=== PATIENT | male | born 1940 | race Caucasian/White ===

== ENCOUNTER → 2023-11-29 06:51 | Outpatient (REF) | payer OTHER, SELFPAY | LOC: MRI 3T 06:51 | PROVIDERS: ATTENDING PHYSICIAN Physical Medicine & Rehabilitation; FAMILY PHYSICIAN Internal Medicine | DX: M54.16 Radiculopathy, lumbar region (principal) | CPT/HCPCS: 72148 ==

== ENCOUNTER → 2023-12-08 07:56 | Outpatient (REF) | payer OTHER, SELFPAY ==
[2023-12-08 09:01] LABS: Hemoglobin 15.5 g/dL (13.0-18.0); Mean Corp Hgb Conc. 31.6 g/dL (33.0-37.0); Mean Corpuscular Hgb 27.9 pg (27.0-31.0); Mean Corpuscular Volume 88.1 fL (80.0-94.0); Mean Platelet Volume 9.9 fL (7.4-10.4); Platelet Count 252 10^3/uL (130-400); Red Blood Cell Count 5.56 10^6/uL (4.70-6.10); Red Cell Dist. Width 16.8 % (11.5-14.5); White Blood Cell Count 5.6 10^3/uL (4.8-10.8)
[2023-12-08 09:58] LABS: Glycohemoglobin (HgbA1c) 8.2 % (4.0-5.6)
[2023-12-08 10:08] LABS: ALT (SGPT) 12 U/L (0-50); AST (SGOT) 27 U/L (17-59); Albumin 3.4 g/dl (3.5-5.0); Alkaline Phosphatase 89 U/L (38-126); Blood Urea Nitrogen 27 mg/dl (9-20); Calcium 8.8 mg/dl (8.4-10.2); Carbon Dioxide 28 mmol/L (22-30); Chloride 100 mmol/L (98-107); Glucose 189 mg/dl (70-99); Potassium 4.3 mmol/L (3.5-5.1); Sodium 135 mmol/L (135-145); Total Bilirubin 0.6 mg/dl (0.2-1.3); Total Protein 9.1 g/dl (6.3-8.2); eGFR > 60.00
== END ==
LOC: REG 07:56
PROVIDERS: ATTENDING PHYSICIAN Internal Medicine Endocrinology, Diabetes & Metabolism; FAMILY PHYSICIAN Internal Medicine
DX: E11.65 Type 2 diabetes mellitus with hyperglycemia (principal)
CPT/HCPCS: 36415; 80053; 83036; 85027

== ENCOUNTER → 2023-12-28 08:59 | Outpatient (REF) | payer OTHER, SELFPAY ==
[2023-12-28 09:37] VITALS: BP 160/73; BP_SYST 65
[2023-12-28 09:49] LABS: Hematocrit 50.8 % (39.0-52.0); Hemoglobin 16.2 g/dL (13.0-18.0); Mean Corp Hgb Conc. 31.9 g/dL (33.0-37.0); Mean Corpuscular Hgb 28.5 pg (27.0-31.0); Mean Corpuscular Volume 89.4 fL (80.0-94.0); Mean Platelet Volume 10.2 fL (7.4-10.4); Platelet Count 191 10^3/uL (130-400); Red Blood Cell Count 5.68 10^6/uL (4.70-6.10); Red Cell Dist. Width 16.7 % (11.5-14.5); White Blood Cell Count 6.9 10^3/uL (4.8-10.8)
[2023-12-28 10:00] LABS: INR 1.08
[2023-12-28 10:31] LABS: Glucose - Point of Care 105 mg/dl (70-99)
[2023-12-28 11:35] VITALS: BP 136/73; BP_SYST 60
[2023-12-28 11:40] VITALS: BP 136/70; BP_SYST 59
[2023-12-28 11:41] LABS: Glucose - Point of Care 84 mg/dl (70-99)
[2023-12-28 11:45] VITALS: BP 138/60; BP_SYST 60
== END ==
LOC: RADI 08:59
PROVIDERS: ATTENDING PHYSICIAN Internal Medicine Hematology & Oncology; FAMILY PHYSICIAN Internal Medicine
DX: C90.30 Solitary plasmacytoma not having achieved remission (principal); C67.9 Malignant neoplasm of bladder, unspecified; D68.8 Other specified coagulation defects
CPT/HCPCS: 88305; 20225; 36415; 77012; 82962; 85027; 85610; 88333; 88341; 88342; 88365; 99152

== ENCOUNTER → 2024-01-16 07:00 | Outpatient (REF) | payer OTHER, SELFPAY ==
[2024-01-16 07:35] LABS: % Basophils 0.5 % (0-2); % Eosinophils 0.3 % (0-6); % Lymphocytes 4.8 % (20.5-51.1); % Monocytes 10.6 % (1.7-9.3); % Neutrophils 79.8 % (42.2-75.2); Absolute Immature Granulocytes 0.4 10^3/uL (0-0.05); Absolute Lymphocytes 0.4 10^3/uL (1.2-3.4); Absolute Monocytes 0.9 10^3/uL (0.1-0.6); Hematocrit 50.2 % (39.0-52.0); Hemoglobin 16.8 g/dL (13.0-18.0); Mean Corp Hgb Conc. 33.5 g/dL (33.0-37.0); Mean Corpuscular Hgb 29.3 pg (27.0-31.0); Mean Corpuscular Volume 87.6 fL (80.0-94.0); Mean Platelet Volume 9.5 fL (7.4-10.4); Nucleated Red Blood Cells % 0 % (-); Platelet Count 207 10^3/uL (130-400); Red Blood Cell Count 5.73 10^6/uL (4.70-6.10); Red Cell Dist. Width 15.9 % (11.5-14.5); White Blood Cell Count 8.8 10^3/uL (4.8-10.8)
[2024-01-16 08:35] LABS: ALT (SGPT) 19 U/L (0-50); AST (SGOT) 22 U/L (17-59); Albumin 3.2 g/dl (3.5-5.0); Alkaline Phosphatase 67 U/L (38-126); Blood Urea Nitrogen 42 mg/dl (9-20); Calcium 8.9 mg/dl (8.4-10.2); Carbon Dioxide 21 mmol/L (22-30); Chloride 104 mmol/L (98-107); Glucose 145 mg/dl (70-99); Potassium 3.9 mmol/L (3.5-5.1); Sodium 135 mmol/L (135-145); Total Bilirubin 0.7 mg/dl (0.2-1.3); Total Protein 7.1 g/dl (6.3-8.2); eGFR > 60.00
== END ==
LOC: REG 07:00
PROVIDERS: ATTENDING PHYSICIAN Internal Medicine Hematology & Oncology; FAMILY PHYSICIAN Internal Medicine
DX: C67.9 Malignant neoplasm of bladder, unspecified (principal); C90.00 Multiple myeloma not having achieved remission
CPT/HCPCS: 36415; 80053; 82232; 82784; 83521; 84155; 84165; 85025; 86334

== ENCOUNTER → 2024-01-30 08:46 | Outpatient (REF) | payer OTHER, SELFPAY | LOC: RAD 08:46 | PROVIDERS: ATTENDING PHYSICIAN Nurse Practitioner Family; FAMILY PHYSICIAN Internal Medicine | DX: C67.9 Malignant neoplasm of bladder, unspecified (principal); C90.00 Multiple myeloma not having achieved remission; K59.00 Constipation, unspecified; M25.552 Pain in left hip | CPT/HCPCS: 73502; 73552 ==

== ENCOUNTER 2024-02-11 06:21 | Inpatient (IN) | payer OTHER, SELFPAY ==
[2024-02-11] VITALS (10 sets, daily range): BP systolic 109–147; BP diastolic 60–82; BMI 28.0; BMI 24.7
--- NOTE | 2024-02-11 03:04 | ED.GENMED ---
History of Present Illness
<Boris Hall, DO - Last Filed: 02/11/24 04:39>
General
Chief Complaint: Back Pain
Source: patient, records, family and ambulance crew
Exam Limitations: none
Time Seen by Provider: 02/11/24 03:02
Nursing documentation reviewed up to this point in time: agreed with
Travel History
Have you had any contact with someone who has COVID-19?: No
Do you have any symptoms of coronavirus? Fever > 100 degrees, chills, cough, shortness of breath, sore throat, loss of taste or smell, muscle aches, or headache?: No
History of Present Illness
History of Present Illness:
83-year-old male presents emergency department complaining low back pain and hip pain. History of plasma cell cancer.
Past History
<Boris Hall, DO - Last Filed: 02/11/24 04:39>
Past History
ED Past Medical History: Asthma (Mild allergic), Cancer (plasma cell cancer), CHF, HTN and Other (idiopathic R diaphram paralized, Cataracts)
ED Past Surgical History: Orthopedic (r knee surg)
Social History
Tobacco: Former smoker
Alcohol: Occasional
Personal:
Living: with family
Employment: Retired
Review of Systems
<Boris Hall, DO - Last Filed: 02/11/24 04:39>
Review of Systems
Allergies reviewed?: Yes
All Other Systems: Not applicable
Constitutional: Reports no symptoms
EENT: Reports no symptoms
Respiratory: Reports trouble breathing
Cardiac: Reports no symptoms
ABD/GI: Reports no symptoms
: Reports no symptoms
Musculoskeletal: Reports back pain
Skin: Reports no symptoms
Neurological: Reports no symptoms
Endocrine: Reports no symptoms
Hematologic/Lymphatic: Reports no symptoms
Phy Exam
<Boris Hall, DO - Last Filed: 02/11/24 04:39>
Physical Exam
Physical Exam:
Physical Exam
General: Moderate respiratory distress, afebrile
Neck: supple. no meningeal signs. normal posterior pharynx
Heart: s1/s2 regular rate and rhythm, no murmur. equal radial
pulses.
HEENT: Pupils equal round reactive to light, EOMI
Lungs: Moderate respiratory distress. clear bilaterally
Abdomen: normal bowel sounds. not tender. no CVAT
Neuro: alert and oriented. no focal neurological deficits cranial nerves II through XII intact
Skin: no rash
Psychiatric: well kept. interactive and cooperative
Extremities: no edema. no calf tenderness. negative homans. good distal pulses
Scores
<Boris Hall DO - Last Filed: 02/11/24 04:39>
Heart Failure Risk
Heart Failure Risk Score: Yes
History of Stroke or TIA: No
History of intubation for respiratory distress: No
Heart rate on ED arrival >/= 110: No
SaO2 <90% on arrival on room air: Yes
HR >/=110 during 3min walk test (or too ill to perform test): Yes
ECG has acute ischemic changes: No
Urea >/=12mmol/L (BUN 33.6mg/dL): Yes
Serum CO2>/=35mmol/L: Yes
Troponin I or T elevated to GA Level (0.4mg/dL): No
NT-proBNP >/=5,000ng/L (5,000pg/ml): No
HF Risk Score: 6
Admission Status: VERY HIGH RISK 55.3% Consider admission to hospital
<AMELIA Vaz - Last Filed: 02/11/24 04:31>
Heart Failure Risk
HF Risk Score: 6
Admission Status: VERY HIGH RISK 55.3% Consider admission to hospital
Course
<Boris Hall, DO - Last Filed: 02/11/24 04:39>
Orders/Labs/Results
Orders:
Orders
02/11/24 03:00
Electrocardiogram (*1) Urgent
Reason for Study: Shortness of Breath
02/11/24 03:01
EKG- Treatment ONCE
02/11/24 03:06
Cardiac Monitoring- Treatment ONCE
IV Insert/Care/Rem.- Treatment PRN
02/11/24 03:07
CR Chest Portable - 1 View Urgent
Comment:
Reason For Exam: short of breath
Reason Study Needs to be Portable: Unable to Transport
02/11/24 03:16
Complete Blood Count/With Diff Urgent
Comprehensive Metabolic Panel Urgent
NT-proBNP Urgent
Troponin I Urgent
02/11/24 04:16
Furosemide [Lasix] 60 mg IV NOW STA
02/11/24 04:34
Morphine Sulfate 4 mg .ROUTE .STK-MED ONE
02/11/24 04:35
Morphine Sulfate 4 mg IV NOW STA
Abnormal Lab Results
02/11/24
03:16
WBC 12.4 H 10^3/uL
(4.8-10.8)
RDW 16.3 H %
(11.5-14.5)
Abs Immat Gran (auto) 0.5 H 10^3/uL
(0-0.05)
Absolute Neuts (auto) 10.8 H 10^3/uL
(1.4-6.5)
Absolute Lymphs (auto) 0.2 L 10^3/uL
(1.2-3.4)
Absolute Monos (auto) 0.7 H 10^3/uL
(0.1-0.6)
Immature Gran % 4.0 H %
(0-0.5)
Neutrophils % 87.5 H %
(42.2-75.2)
Lymphocytes % 1.9 L %
(20.5-51.1)
Sodium 130 L mmol/L
(135-145)
Chloride 90 L mmol/L
(98-107)
Carbon Dioxide 36 H mmol/L
(22-30)
BUN 52 H mg/dl
(9-20)
Glucose 152 H mg/dl
(70-99)
Alkaline Phosphatase 193 H U/L
(38-126)
Troponin I 0.070 H* ng/ml
Total Protein 5.9 L g/dl
(6.3-8.2)
Albumin 3.0 L g/dl
(3.5-5.0)
02/11/24 03:16
02/11/24 03:16
Vital Signs
Initial and Last Documented VS:
Initial Vital Signs
Temp Pulse Resp BP Pulse Ox
97.5 F 71 16 143/65 95
02/11/24 02:52 02/11/24 02:52 02/11/24 02:52 02/11/24 02:52 02/11/24 02:52
Last Documented Vital Signs
Temp Pulse Resp BP Pulse Ox
97.5 F 74 14 109/70 95
02/11/24 02:52 02/11/24 04:00 02/11/24 04:00 02/11/24 04:00 02/11/24 04:00
<AMELIA Vaz - Last Filed: 02/11/24 04:31>
Orders/Labs/Results
Orders:
Orders
02/11/24 03:00
Electrocardiogram (*1) Urgent
Reason for Study: Shortness of Breath
02/11/24 03:01
EKG- Treatment ONCE
02/11/24 03:06
Cardiac Monitoring- Treatment ONCE
IV Insert/Care/Rem.- Treatment PRN
02/11/24 03:07
CR Chest Portable - 1 View Urgent
Comment:
Reason For Exam: short of breath
Reason Study Needs to be Portable: Unable to Transport
02/11/24 03:16
Complete Blood Count/With Diff Urgent
Comprehensive Metabolic Panel Urgent
NT-proBNP Urgent
Troponin I Urgent
02/11/24 04:16
Furosemide [Lasix] 60 mg IV NOW STA
02/11/24 04:34
Morphine Sulfate 4 mg .ROUTE .STK-MED ONE
02/11/24 04:35
Morphine Sulfate 4 mg IV NOW STA
Abnormal Lab Results
02/11/24
03:16
WBC 12.4 H 10^3/uL
(4.8-10.8)
RDW 16.3 H %
(11.5-14.5)
Abs Immat Gran (auto) 0.5 H 10^3/uL
(0-0.05)
Absolute Neuts (auto) 10.8 H 10^3/uL
(1.4-6.5)
Absolute Lymphs (auto) 0.2 L 10^3/uL
(1.2-3.4)
Absolute Monos (auto) 0.7 H 10^3/uL
(0.1-0.6)
Immature Gran % 4.0 H %
(0-0.5)
Neutrophils % 87.5 H %
(42.2-75.2)
Lymphocytes % 1.9 L %
(20.5-51.1)
Sodium 130 L mmol/L
(135-145)
Chloride 90 L mmol/L
(98-107)
Carbon Dioxide 36 H mmol/L
(22-30)
BUN 52 H mg/dl
(9-20)
Glucose 152 H mg/dl
(70-99)
Alkaline Phosphatase 193 H U/L
(38-126)
Troponin I 0.070 H* ng/ml
Total Protein 5.9 L g/dl
(6.3-8.2)
Albumin 3.0 L g/dl
(3.5-5.0)
02/11/24 03:16
02/11/24 03:16
Vital Signs
Initial and Last Documented VS:
Initial Vital Signs
Temp Pulse Resp BP Pulse Ox
97.5 F 71 16 143/65 95
02/11/24 02:52 02/11/24 02:52 02/11/24 02:52 02/11/24 02:52 02/11/24 02:52
Last Documented Vital Signs
Temp Pulse Resp BP Pulse Ox
97.5 F 74 14 109/70 95
02/11/24 02:52 02/11/24 04:00 02/11/24 04:00 02/11/24 04:00 02/11/24 04:00
Procedures
<AMELIA Vaz - Last Filed: 02/11/24 04:31>
Laceration Closure
Left Eye brow:
Status of Wound: clean
Size of Wound in cm: 2
Description of Wound Edges: sharp
Preparation: cleaned with saline
Anesthesia: 1% Lidocaine
Revision/Debridement: routine- no revision
Wound exploration: explored to base- no FB
Type of Closure: single layer closure
Skin Closure Material: 5-0 prolene
Number of sutures: 3
<Boris Hall DO - Last Filed: 02/11/24 04:39>
MDM/Problems Addressed
Differential Diagnosis Includes:
Pneumonia, CHF, low back pain
MDM/Problems Addressed:
83-year-old male with chf exacerbation, low back pain due to multiple myeloma. Hypoxia. lasix ordered, admit to hospitalist.
Chronic conditions affecting care: Cardiomyopathy and Cancer
Acute Exacerbation and/or Progression of Chronic Illness: Cardiomyopathy and Cancer
<Boris Hall, DO - Last Filed: 02/11/24 04:39>
*Radiology
Radiology exam reviewed: preliminary read by ED provider (Chest x-ray no acute findings)
*Pulse Oximetry
Patient hypoxic: yes
*EKG
Interpreted by ED Provider?: Yes
EKG Intrepretation Date: 02/11/24
EKG Intrepretation Time: 03:11
Interpretation: normal
Comparison EKG: no changes
Heart Rate: 67
Rate: normal
Rhythm: sinus
[place]: normal axis
Interval: normal interval
QRS Pattern: normal QRS
Ischemia: no ischemia
*[employer] Interpretation
Rate: normal
Heart Rate: 70
Rhythm: sinus
*Critical Care Note
Total Time (30-74mins, 75-104mins- exclusive of procedures): Not Applicable
Data Reviewed
Review of Other/Old Records Reveals: Testing (lumbar bone biopsy shows plasma cell cancer)
Source: records
Further Testing Considered But Not Given:
ct chest not indicated
ED Attending Note
<Boris Hall, DO - Last Filed: 02/11/24 04:39>
-
Portions of this chart may have been created with voice recognition software.� Occasional wrong word or��sound alike� substitutions may have occurred due to the inherent limitations of voice recognition software.
Discharge Plan
Departure
Patient Disposition: Admit
Date of Disposition: 02/11/24
Time of Disposition: 04:37
Admit to: Telemetry
Presentation/result/management discussed w/ accepting MD/DO: Hospitalist
Patient with high blood pressure during this ER visit?: Yes
Condition: Fair
Discharge Problem:
Acute exacerbation of CHF (congestive heart failure), Multiple myeloma
Prescriptions:
No Action
amlodipine 2.5 MG tablet
5 mg PO BID
omeprazole 40 MG capsule,delayed release(DR/EC)
40 mg PO DAILY
Jardiance 10 mg Tablet
10 mg PO DAILY
insulin glargine [Lantus Solostar U-100 Insulin] 100 unit/mL (3 mL) Insulin Pen
24 unit SC DAILY
furosemide 40 mg Tablet
60 mg PO DAILY
dexamethasone 2 mg Tablet
2 mg PO BID
zolpidem 5 mg Tablet
5 mg PO HS PRN (Reason: insomnia)
morphine 15 mg Tablet
7.5 mg PO Q6H PRN (Reason: pain)
Referrals:
Hilda Fry MD [Family Provider] -
Interventions
Interventions:
*Risk Screen - Suicide Last Done: 02/11/24 02:52
*General Assessment Last Done: 02/11/24 02:52
*Neglect/Abuse Screening Last Done: 02/11/24 02:52
*ED COVID-19 Vaccine History Last Done: 02/11/24 02:52
ED-Musculoskeletal Assessment Last Done: 02/11/24 03:00
Discharge Date and Time
Print Language: AUSTRAL[place]
[2024-02-11 03:24] LABS: % Basophils 0.6 % (0-2); % Lymphocytes 1.9 % (20.5-51.1); % Neutrophils 87.5 % (42.2-75.2); Absolute Basophils 0.1 10^3/uL (0-0.2); Absolute Immature Granulocytes 0.5 10^3/uL (0-0.05); Absolute Lymphocytes 0.2 10^3/uL (1.2-3.4); Absolute Monocytes 0.7 10^3/uL (0.1-0.6); Absolute Neutrophils 10.8 10^3/uL (1.4-6.5); Hematocrit 49.9 % (39.0-52.0); Hemoglobin 16.6 g/dL (13.0-18.0); Mean Corp Hgb Conc. 33.3 g/dL (33.0-37.0); Mean Corpuscular Hgb 29.6 pg (27.0-31.0); Mean Corpuscular Volume 88.9 fL (80.0-94.0); Mean Platelet Volume 10.1 fL (7.4-10.4); Nucleated Red Blood Cells % 0 % (-); Platelet Count 216 10^3/uL (130-400); Red Blood Cell Count 5.61 10^6/uL (4.70-6.10); Red Cell Dist. Width 16.3 % (11.5-14.5); White Blood Cell Count 12.4 10^3/uL (4.8-10.8)
[2024-02-11 03:56] LABS: ALT (SGPT) 31 U/L (0-50); AST (SGOT) 40 U/L (17-59); Alkaline Phosphatase 193 U/L (38-126); Blood Urea Nitrogen 52 mg/dl (9-20); Calcium 8.4 mg/dl (8.4-10.2); Carbon Dioxide 36 mmol/L (22-30); Chloride 90 mmol/L (98-107); Estimated Creatinine Clearance 47 ml/min; Glucose 152 mg/dl (70-99); NT-proBNP 2250 pg/ml; Sodium 130 mmol/L (135-145); Total Bilirubin 0.7 mg/dl (0.2-1.3); Total Protein 5.9 g/dl (6.3-8.2); eGFR 59.63
[2024-02-11] MEDS: LASIX 60 MG IV (04:29)
[2024-02-11] MEDS: MORPHINE SULFATE 4 MG IV (04:35)
--- NOTE | 2024-02-11 06:13 | HPS.HSE ---
Family Physician
-
Family Physician: Hilda Fry
Chief Complaint
-
Back Pain, Fatigue, SOB
History of Present Illness
Patient is an 83y M with PMH significant for hypertension, DM-II and CHF who presents to ED complaining of back pain, hip pain, SOB and fatigue. History obtained from patient and his family at the bedside. Patient states that he was diagnosed
with CHF in June 2023. He has been maintained on Lasix since that time. More recently, he developed significant back pain which ultimately led to a diagnosis of plasma cell myeloma. He has had continued / worsening pain since this diagnosis.
He is currently on dexamethasone BID and was recetly started on oral morphine (Monday) in an attempt to control his pain. At home, he has been essentially confined to his recliner due to pain and dyspnea. He has had significant increase in LE
swelling.
His Lasix dose was recently adjusted - in hopes it would improve his sleep. He was changed from 40mg in the AM and 20mg in the PM to 60 mg in the AM only.
Today, he was having significant back and hip pain despite the meds he has at home. He appeared much more short of breath over the past 2 days according to family and today was brought to the ED for further evaluation and treatment.
In the ED, the patient is dyspneic with increased work of breathing when awake, but falls asleep easily.
Medical History
Past Medical History
Past Medical History: Reports Other
Additional Past Medical History:
Chronic HFpEF
Hypertension
DM-II
Transitional Cell Carcinoma
Plasma Cell Myeloma
Colon Polyps
Atrial Fibrillation s/p Ablation
Paralyzed R Hemidiaphragm
Past Surgical History: Reports Other
Additional Past Surgical History:
PVI Ablation x 2
LINQ Implant
Cholecystectomy
TURBT
Right Knee Arthroscopy
Social History
Tobacco: Former Smoker
Alcohol: Occasional
Drug: None
Family History
Family History: Not pertinent
Allergies / Home Medications
Allergies reflects when Allergies were last updated in [facility].
Home Medications with original date entered in [facility]
Allergy/Medication List:
Allergies
Allergy/AdvReac Type Severity Reaction Status Date / Time
No Known Drug Allergies Allergy Unknown Verified 12/28/23 10:15
pollens Allergy sneezing, Uncoded 06/25/23 14:21
postnasal
drip
Home Medications
amlodipine 2.5 mg tablet 5 mg PO BID Blood pressure 10/11/17
omeprazole 40 mg capsule,delayed release 40 mg PO DAILY stomach acid 06/18/21
empagliflozin 10 mg tablet (Jardiance) 10 mg PO DAILY 12/27/23
insulin glargine 100 unit/mL (3 mL) subcutaneous pen (Lantus Solostar U-100 Insulin) 24 unit SC DAILY 12/27/23
furosemide 40 mg tablet 60 mg PO DAILY 12/28/23
dexamethasone 2 mg tablet 2 mg PO BID 02/11/24
morphine 15 mg immediate release tablet 7.5 mg PO Q6H PRN pain 02/11/24
zolpidem 5 mg tablet 5 mg PO HS PRN insomnia 02/11/24
Review of Systems
-
History Source: Patient and Family
A 12 point ROS was completed and negative except as noted: Yes
Constitutional: Reports Fatigue; Denies Fever or Chills
EENT: Denies Sore Throat
Respiratory: Reports Trouble Breathing; Denies Cough or Hemoptysis
Cardiac: Denies Chest Pain, Diaphoresis or Palpitations
Abdomen/GI: Reports Constipated; Denies Abdominal Pain, Nausea, Vomiting or Diarrhea
: Denies Dysuria or Frequency
Musculoskeletal: Reports Joint Pain and Edema
Neurological: Reports Weakness; Denies Dizzy or Headache
Psych: Denies Depression or Anxiety
Physical Exam
Vital Signs
Vital Signs
Temp Pulse Resp BP Pulse Ox
97.5 F 73 23 147/73 93
02/11/24 02:52 02/11/24 05:00 02/11/24 05:00 02/11/24 05:00 02/11/24 05:00
Physical Exam
General: Other (83y M in mild - moderate distress due to pain / dyspnea.)
HEENT: Moist mucous membranes and PERRLA
Respiratory: Other (Decreased BS at the R base - otherwise clear.)
Cardiac: S1/S2, Regular Rhythm and Murmur (II/ REJI)
GI: Soft, Non Tender, Non Distended and Normal Bowel Sounds
Musculoskeletal: No Clubbing, No Cyanosis and Other (3-4+ pitting edema to the mid thighs,)
Neuro: Other (Falls asleep easily. Answers questions appropriately when wakened.)
Laboratory Results
-
02/11/24 03:16
02/11/24 03:16
Laboratory Results
Total Bilirubin 0.7 mg/dl (0.2-1.3) 02/11/24 03:16
AST 40 U/L (17-59) 02/11/24 03:16
ALT 31 U/L (0-50) 02/11/24 03:16
Alkaline Phosphatase 193 U/L (38-126) H 02/11/24 03:16
Troponin I 0.070 ng/ml H* 02/11/24 03:16
Impression/Plan
-
A/P: Patient is an 83y M with PMH significant for hypertension, DM-II, CHF and newly diagnosed myeloma who presents to ED complaining of increased SOB and uncontrolled pain.
Acute on Chronic HFpEF
Acute Hypoxemic Respiratory Failure secondary to the above
- Admit for further evaluation and treatment.
- Mostly R sided CHF symptoms / exam findings, but significant hypoxemia at home (70s) and here (87% RA).
- Marked edema on exam - gradually better the last few days with higher Lasix doses at home.
- IV Lasix BID for now.
- Follow I/Os, daily weights, etc.
- Update Echo (last 06/2023).
- Cardiology evaluation for additional recommendations.
- Suspect that degree of hypoxemia also contributed to by new pain medications, chronic hemidiaphragm paralysis, etc.
Plasma Cell Myeloma
Uncontrolled Pain secondary to the above
- Patient with back pain and hip pain secondary to L5 lesion (with other / small lesions also noted at L3, sacrum, iliac).
- Adjust pain regimen for adequate control.
- Continue current dexamethasone dosing.
- Follow for adequate control of pain.
Constipation
- Likely due to newly added narcotics.
- Begin bowel regimen and adjust as needed for good results.
Benign Hypertension
- Hold amlodipine for now given significant LE edema.
- Follow BP during diuresis and adjust regimen as needed for adequate control.
DM-II
- Stable. Continue SGLT-2 inhibitor and basal insulin.
- Follow glucose and cover with SSI as needed.
- Update A1C.
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
History of A-Fib s/p PVI Ablation x 2
- No recurrent A-Fib noted. LINQ in place.
- Not maintained on chronic OAC.
DVT Prophylaxis: Lovenox
Code Status: Full
[2024-02-11 09:03] LABS: Troponin I 0.069 ng/ml
[2024-02-11 09:07] LABS: Glucose - Point of Care 127 mg/dl (70-99)
[2024-02-11] MEDS: NOVOLOG FLEXPEN-LOW RESISTANCE SC (09:09)
[2024-02-11] MEDS: DECADRON 2 MG PO ×2 (09:18→20:59)
[2024-02-11] MEDS: PROTONIX 40 MG PO (09:18)
[2024-02-11] MEDS: TYLENOL 1000 MG PO ×3 (09:18→22:36)
[2024-02-11] MEDS: JARDIANCE 10 MG PO (09:18)
[2024-02-11] MEDS: COLACE 100 MG PO ×2 (09:18→20:59)
[2024-02-11] MEDS: LASIX 40 MG IV (09:18)
[2024-02-11] MEDS: LANTUS 0.200000000000000011 UNITS SC (09:27)
--- NOTE | 2024-02-11 11:27 | PTCARENOTE ---
Patient admitted from ER into room 405-02. Vital signs stable. Accu check 127. Insulin given as ordered and assisted patient with ordering breakfast. Oriented to room, use of call rice and use of TV and bed controls. Reviewed plan of care with
patient. Patient verbalizes understanding of all teaching and denies questions at this time. Patient with large stage 2 pressure ulcer bilateral buttocks. Will place him on air mattress. Patient denies pain at this time. Resting comfortably in bed.
--- NOTE | 2024-02-11 11:34 | W.PN.HOSP.TC ---
Addendum entered and electronically signed by Mars Mckeon MD 02/11/24 13:23:
Hyponatremia-likely secondary to fluid overload/myeloma-will check osmolality studies
Original Note:
Today's Communication/Plan
-
Bowel regimen
Pain control
PT OT
Venous doppler LE
Lasix
ECHO
Assessment / Plan
Assessment / Plan
83-year-old male With back pain fatigue and shortness of breath. LE edema worse lately.
CVS: S1-S2 normal
Chest: CTA B/L, decreased at bases
Abdomen: Soft, NT / Bowel sounds present
Extremities: B/L LE edema,
GEOTECHNICIAN: Good strength peripheral strength B/L UE and LE
Sacrum Stage 2 PI
#Acute on Chronic HFpEF
Acute Hypoxemic Respiratory Failure secondary to the above
- Mostly R sided CHF symptoms / exam findings, but significant hypoxemia at home (70s) and here (87% RA).
- Marked edema on exam - gradually better the last few days with higher Lasix doses at home.
- IV Lasix BID for now.
- Follow I/Os, daily weights
- Update Echo (last 06/2023).
- Cardiology evaluation for additional recommendations.
- LE doppler
- Suspect that degree of hypoxemia also contributed to by new pain medications, chronic hemidiaphragm paralysis, etc.
#Plasma Cell Myeloma
Uncontrolled Pain secondary to the above
- Patient with back pain and hip pain secondary to L5 lesion (with other / small lesions also noted at L3, sacrum, iliac).
- Says he had radiation, and steroids. No chemo
- Adjust pain regimen for adequate control.
- Opiate dependent for pain control
- Continue current dexamethasone dosing.
- Follow for adequate control of pain.
- Follows with Dr. Farah- will consult heme routine Monday
#Stage 2 Sacral PI
#Constipation
- Likely due to newly added narcotics.
- Begin bowel regimen and adjust as needed for good results.
#Benign Hypertension
- Hold amlodipine for now given significant LE edema.
- Follow BP during diuresis and adjust regimen as needed for adequate control.
#DM-II
- Master on Jardiance, Lantus 24 units as outpatient
- Follow glucose and cover with SSI as needed.
- Update A1C.
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
#History of Paroxysmal A-Fib s/p PVI Ablation x 2
- No recurrent A-Fib noted. LINQ in place.
- Not maintained on chronic OAC.
#Possible portal vein thrombosis-Per MRI in the past-not on anticoagulation
#History of peptic ulcer disease/hiatal hernia-PPI
#Insomnia-continue Ambien
#Atherosclerosis ,Mild to moderate calcified plaque within the left SFA
Per daughter pt doesn't want to take chol meds as he is afraid of side effects
#Diverticulosis
#Gout
#Ex-smoker
#DVT Prophylaxis: Lovenox
#Code Status: Full
D/W RN at bed side
Spoke to daughter and updated.
She says he doesn't like to take a lot of meds
Time spent 52 min
Anticipated Discharge: 24 - 48 hours
Subjective/Interval History
-
Date of Service: February 11, 2024
Objective Data
-
Labs:
Laboratory Results
02/11/24
03:16
WBC 12.4 H
Hgb 16.6
Hct 49.9
Plt Count 216
Sodium 130 L
Potassium 5.0
Chloride 90 L
Carbon Dioxide 36 H
BUN 52 H
Creatinine 1.2
Glucose 152 H
Calcium 8.4
Total Bilirubin 0.7
AST 40
ALT 31
Alkaline Phosphatase 193 H
Vital Signs:
Vital Signs
Temp Pulse Resp BP Pulse Ox
97.6 F 83 18 147/82 96
02/11/24 07:55 02/11/24 09:18 02/11/24 07:55 02/11/24 09:18 02/11/24 07:55
I&O
02/10/24 02/11/24 02/12/24
06:59 06:59 06:59
Output Total 50 / 50
Balance -50 / -50
[2024-02-11] MEDS: MIRALAX 17 GRAMS PO (12:37)
--- NOTE | 2024-02-11 12:53 | PTCARENOTE ---
Patient placed on air mattress. Buttock/saccral area cleansed with NSS and Calazime cream applied. Patient assisted with frequent turning and off loading weight. Wound care consult placed.
[2024-02-11] MEDS: MILK OF MAGNESIA 30 ML PO (13:33)
[2024-02-11] MEDS: LIDOCAINE 4% PATCH 1 PATCH TOPICAL (13:33)
[2024-02-11 13:43] LABS: Glucose - Point of Care 487 mg/dl (70-99)
--- NOTE | 2024-02-11 13:43 | CON.CAR ---
Consultation
Consultation Request
Date/Time Consultation Requested: 02/11/2024 at 10 AM
Date/Time Consultation Performed: 02/11/2024 at 2:30 PM
Requesting Provider: Dr. Fournier
Performing Provider: Dr. Megan Joiner MD
Reason for Consultation: Shortness of breath
Medical History
-
Chief Complaint: Shortness of breath
History of Present Illness:
He is my outpatient he is here for heart failure symptoms with complaints of shortness of breath, fatigue, back and hip pain. Labs performed in the ER included a troponin peak of 0.07. proBNP of 2250 with prior 442 (06/25/2023). EKG without acute
abnormality.
In addition he has history of hypertension and diabetes. He has prior history of GI bleed. He has known elevated hemidiaphragm. Of note on presentation pulse ox's were in the 87% range
He has been diuresing during hospital stay and is starting to feel better but still has lower extremity edema to his thighs. He underwent peripheral vascular venous ultrasound today with evidence of bilateral DVT with on the right nonocclusive
thrombus in the common femoral vein, occlusive thrombus mid femoral vein nonocclusive thrombus in the popliteal vein. Left lower extremity common femoral vein and popliteal vein are patent nonocclusive thrombus in the proximal femoral vein.
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 Given pain he has been treated with radiation. He is currently on dexamethasone BID and was recently started on oral morphine (Monday) in an
attempt to control his pain. His pain is better controlled but still noted. He tells me currently he has not needed pain medicine.
Past Medical History
Past Medical History: Arrhythmias (Atrial fibrillation status post pulmonary vein isolation x 2), Cancer (Malignant plasmacytoma, transitional cell carcinoma of the bladder), CHF, GERD (Hiatal hernia), HTN, NIDDM and Other (Elevated hemidiaphragm,
gout, history of GI bleed, rotator cuff rupture)
Past Surgical History: Cardiac (Linq implant), Orthopedic (Knee arthroscopy), Tonsilectomy, Urological (Cystoscopy with TURBT) and Other (Ophthalmologic surgery)
Social History
Tobacco: Non-Smoker
Personal:
Living: With Family
Employment: Retired
Family History
Family History: Reviewed & Not Pertinent
Allergies / Home Medications
Allergy/AdvReac Type Severity Reaction Status Date / Time
No Known Drug Allergies Allergy Unknown Verified 12/28/23 10:15
pollens Allergy sneezing, Uncoded 06/25/23 14:21
postnasal
drip
�Medication �Instructions �Recorded �Confirmed �Type
amlodipine 2.5 mg tablet 5 mg PO BID Blood pressure 10/11/17 02/11/24 History
omeprazole 40 mg capsule,delayed 40 mg PO DAILY stomach acid 06/18/21 02/11/24 History
release
empagliflozin 10 mg tablet 10 mg PO DAILY Diabetes/Heart 12/27/23 02/11/24 History
(Jardiance) failure
insulin glargine 100 unit/mL (3 24 unit SC DAILY Diabetes 12/27/23 12/27/23 History
mL) subcutaneous pen (Lantus
Solostar U-100 Insulin)
furosemide 40 mg tablet 60 mg PO DAILY Fluid 12/28/23 02/11/24 History
Retention/Swelling
dexamethasone 2 mg tablet 2 mg PO BID Anti-Inflammatory 02/11/24 02/11/24 History
morphine 15 mg immediate release 7.5 mg PO Q6H PRN pain 02/11/24 02/11/24 History
tablet
zolpidem 5 mg tablet 5 mg PO HS PRN insomnia 02/11/24 02/11/24 History
Review of Systems
-
History Source: Patient
All other systems: Negative unless noted
Respiratory: Trouble Breathing
Cardiac: Other (Edema)
Musculoskeletal: Other (Back pain hip pain)
Physical Exam
Vital Signs
Temp Pulse Resp BP Pulse Ox
97.8 F 67 18 125/60 94
02/11/24 11:45 02/11/24 11:45 02/11/24 11:45 02/11/24 11:45 02/11/24 11:45
Lab Results
02/11/24 03:16
02/11/24 03:16
Troponin I 0.069 ng/ml H* 02/11/24 08:23
.Daz-T-Bguoayofnku Pept 2250 pg/ml 02/11/24 03:16
General: Well developed, well nourished in NAD.
Heart: Non displaced PMI, RRR, no murmurs, No S3, S4, no rubs.
Lungs: decreased breath sounds at the base
Extremities: +2 edema to thighs
Neuro: Grossly nonfocal, awake, alert and oriented x3
Impression / Plan
-
Progress Developer: Dr. Megan Joiner
Impression:
Acute on chronic heart failure with preserved ejection fraction
Hypoxemia on presentation
Elevated troponin (peak 0.07)�non acute coronary syndrome troponin elevation
Now with bilateral DVT
History of atrial fibrillation status post pulmonary vein isolation 11/26/2013 and 06/05/2014, Not on anticoagulation secondary to GI bleeding monitor through device
Linq monitor in place to monitor for atrial fibrillation, 12/15/2013 and 09/06/2021
Hypertension
Diabetes mellitus
Plasmacytoma
History of bladder cancer�low-grade papillary urothelial carcinoma
History of GI bleed
Elevated hemidiaphragm
Hip and back pain
Aorta atherosclerosis, declined lipid-lowering
-Echocardiogram 07/25/2023 with mild LVH (1 to 1.1 cm). EF 55 to 60%. Normal RV. Mild MR. Trace AI. Mild TR with PA pressure 43 mmHg.
-Lexiscan nuclear stress test 07/07/2023 small, mild, fixed basal to mid inferior perfusion defect which likely represents attenuation. No ischemia or scar. Ejection fraction 65%.
Plan:
Patient with a history of acute on chronic heart failure with preserved ejection fraction. Continues on steroids for back pain. Volume overload is multifactorial.
-Agree with IV Lasix for diuresis
-Follow input/output and daily weights
-Follow labs
-Heart failure team consult/nutrition consult
-Currently I have held Lasix until CT scan with contrast is completed. He still does appear volume overloaded.
Hypoxemia on presentation
-Possibly related to decompensated heart failure with preserved ejection fraction
-However given bilateral DVT rule out PE. Primary service ordering CT scan.
Elevated troponin
-Recent stress test negative for ischemia
-Likely non-ACS troponin elevation
-Continue conservative management
-There is concern given bilateral DVT and PE will be ruled out which may be the etiology of elevated troponin.
Bilateral DVT
-Tricky situation given patient is not currently on anticoagulation because of history of GI bleeding. Discussed with patient and his daughter at the bedside.
-Have discussed with primary service and agree to start IV heparin and follow. If bleeding related issues with then consider IVC filter
-Hematology/oncology will also be seeing patient
Hypertension
-Blood pressure stable continue current treatment
Diabetes
-Managed by primary service
History of atrial fibrillation status post pulmonary vein isolation x 2 in 2014
-Not on anticoagulation because of previous GI bleed
-Atrial fibrillation is monitored through Linq device
Plasmacytoma with back and hip pain
Discussed with nursing. Discussed with primary service. Discussed with patient and his daughter at the bedside and all questions answered.
Data Reviewed
-
EKG: Tracing Personally Visualized and interpreted
Radiology: Report Reviewed by me
Medical Tests (Nuc Med, Echo etc): Report Reviewed by me
Labs: Labs Reviewed by me
Old Records: Reviewed
[2024-02-11 13:45] LABS: Osmolality Serum 285 mOsm/kg (275-300)
[2024-02-11 13:46] LABS: Glucose - Point of Care 293 mg/dl (70-99)
[2024-02-11] MEDS: NOVOLOG FLEXPEN-LOW RESISTANCE 3 UNITS SC (13:58)
[2024-02-11 14:30] LABS: Osmolality Urine 351 mOsm/kg (300-900)
[2024-02-11 14:41] LABS: Urine Sodium 64 mmol/L (30-90)
--- NOTE | 2024-02-11 16:04 | PTCARENOTE ---
Accu check reading high prior to lunch. Asked PCT to repeat as he had insulin and the result was not correlating with how he was feeling or the fact that insulin was given prior. Repeat result 293. Covered with sliding scale insulin as ordered.
--- NOTE | 2024-02-11 16:12 | PTCARENOTE ---
BL lower extremity US - Evidence of bilateral deep venous thrombosis. On the right, nonocclusive thrombus in the common femoral vein and popliteal vein. Occlusive thrombus in the proximal to mid femoral vein. On the left, nonocclusive thrombus in
the proximal femoral vein. Hospitalist notified who spoke with patient and daughter.
--- NOTE | 2024-02-11 16:15 | CM ---
CM met with pt and dtr bedside
Pt resides with his in a 2SH with 2STE
Pt notes independence with ADLs typically- has a WW and transport chair
Stair glide to 2nd floor and family renting hospital bed ( he feels it is uncomfortable- does not have air mattress)
Pt is not on home O2 at baseline
Pt is current with [facility] and [facility]
Dtr signed paperwork for 20/03 private duty care- awaiting nursing assessment and start date
Pt recently completed radiation sessions 04/04
PCP- Hilda Fry
Rx- [facility] [address] [place]
WOC consulted for sacral injury
PT/OT evals pending
Anticipate plan to return home with services, will watch for home O2 and DME needs
Discharge Disposition- likely home with [facility] and palliative [facility], watch for home 02 and likely will need air mattress
--- NOTE | 2024-02-11 16:25 | W.PN.UPDATE ---
Update Note
Progress Note Update
Patient and daughter updated with results of USS.
Also discussed with Cardiology.
It is best to start patient on Heparin gtt
With SOB will also get a CT PE study , may be this is not CHF and could be PE?
Also add on CT A/P with IV contrast given Edema and DVT and also persisting back pain.
If cardiology agrees will hold lasix tonight and get BMP in am given he is going to get IV contrast.
TIme 20 min
[2024-02-11] MEDS: LASIX IV (16:38)
[2024-02-11 16:49] LABS: Glucose - Point of Care 189 mg/dl (70-99)
[2024-02-11 17:00] LABS: Hematocrit 51.6 % (39.0-52.0); Hemoglobin 17.5 g/dL (13.0-18.0); Mean Corp Hgb Conc. 33.9 g/dL (33.0-37.0); Mean Corpuscular Hgb 29.1 pg (27.0-31.0); Mean Corpuscular Volume 85.9 fL (80.0-94.0); Mean Platelet Volume 9.6 fL (7.4-10.4); Platelet Count 243 10^3/uL (130-400); Red Blood Cell Count 6.01 10^6/uL (4.70-6.10); Red Cell Dist. Width 17.2 % (11.5-14.5); White Blood Cell Count 9.4 10^3/uL (4.8-10.8)
[2024-02-11 17:01] LABS: Troponin I 0.061 ng/ml
[2024-02-11 17:10] LABS: APTT 23.3 Sec (23.4-35.0)
[2024-02-11] MEDS: HEPARIN 25000 UNITS/250 ML IV (17:27)
[2024-02-11] MEDS: HEPARIN 6200 UNITS IV (17:28)
[2024-02-11] MEDS: NOVOLOG FLEXPEN-LOW RESISTANCE 1 UNITS SC (17:32)
--- NOTE | 2024-02-11 20:53 | W.PN.UPDATE ---
Update Note
Progress Note Update
CT of chest + for PE but is without evidence of right heart strain. He is presently on Heparin infusion.
[2024-02-11] MEDS: SENOKOT 17.1999999999999993 MG PO (20:59)
[2024-02-11 21:30] LABS: Glucose - Point of Care 107 mg/dl (70-99)
[2024-02-11 22:29] LABS: Troponin I 0.069 ng/ml
[2024-02-12 03:53] VITALS: BP 136/75
--- NOTE | 2024-02-12 04:47 | PTCARENOTE ---
Addendum entered by Ernesto Jackson RN 02/12/24 07:51:
Pt is on a medsitter for safety reasons.
Original Note:
Pt continued on heparin drip as ordered. Pt took his oxygen off, pt pulled his tele leads & IV came out,as per pt he was trying to take them off & got caught with it. Pt oriented to place,forgetful to time. Pt doesn't like to be woken up to give
care,refuses [id number],aware of skin breakdown,still refuses turns.New IV was placed on pt. IV heparin continued as per protocol. Pt sinus bradycardia on monitor in 40-50's, when awake 55-60 asymptomatic otherwise.Denies chest pain.On oxygen at
4litres. [employer] immigration case manager was made aware of it.No new orders at this time.Plan of care continued.
[2024-02-12 06:59] LABS: Hematocrit 48.4 % (39.0-52.0); Hemoglobin 16.3 g/dL (13.0-18.0); Mean Corp Hgb Conc. 33.7 g/dL (33.0-37.0); Mean Corpuscular Hgb 29.2 pg (27.0-31.0); Mean Corpuscular Volume 86.6 fL (80.0-94.0); Mean Platelet Volume 9.7 fL (7.4-10.4); Platelet Count 223 10^3/uL (130-400); Red Blood Cell Count 5.59 10^6/uL (4.70-6.10); Red Cell Dist. Width 15.9 % (11.5-14.5); White Blood Cell Count 9.9 10^3/uL (4.8-10.8)
[2024-02-12 07:31] LABS: Glucose - Point of Care 88 mg/dl (70-99)
[2024-02-12 07:55] VITALS: BP 147/66
[2024-02-12] MEDS: NOVOLOG FLEXPEN-LOW RESISTANCE SC ×3 (08:09→17:36)
[2024-02-12 08:18] LABS: Blood Urea Nitrogen 43 mg/dl (9-20); Calcium 8.2 mg/dl (8.4-10.2); Carbon Dioxide 32 mmol/L (22-30); Chloride 94 mmol/L (98-107); Estimated Creatinine Clearance 63 ml/min; Glucose 91 mg/dl (70-99); HDL Cholesterol 48 mg/dl; LDL Cholesterol, Calculated 50 mg/dl; Potassium 4.4 mmol/L (3.5-5.1); Sodium 131 mmol/L (135-145); Total Cholesterol 119 mg/dl (50-199); Triglyceride 105 mg/dl (10-149); Very Low Density Lipoprotein 21 mg/dl (0-30); eGFR > 60.00
[2024-02-12 08:21] LABS: APTT 54.5 Sec (23.4-35.0)
--- NOTE | 2024-02-12 08:50 | CON.ONC ---
Impression
Impression
Probable multiple myeloma
Cancer-related pain s/p RT to l/s spine
Steroid myopathy
DVT/PE
Constipation
CHF
Afib with Linq, not on a/c at baseline
Anorectal pain
Progressive weakness with having difficulty managing pt at home
Plan
Plan
MRI lumbosacral spine, eval for path fx at L5, eval for other lytic lesions.
Awaiting manual disimpacting for constipation.
Low threshold for anorectal surgery consult to exclude perirectal abscess as contributing factor to the very severe pain.
Agree with current analgesic regimen
Re-eval PS once pain better controlled, determine whether pt is safe to return home vs. requiring placement ( was having difficuty managing him at home)
Taper dexamethasone to 2 mg daily (has been on 2 BID for 10 days) due to suspected steroid myopathy.
With diagnosis of plasmacytoma confirmed by biopsy, pt also meets diagnostic criteria for active myeloma if there are other osteolytic lesions presents, even though he does not have other CRAB criteria, and in that case bone marrow biopsy would not
be required for definitive diagnosis.
Thank you for consult, will follow along with you.
Patient History
History of Present Illness
83-year-old man with history of bladder cancer, recently presented with back and hip pain. Imaging showed a large lesion at L5. He underwent biopsy of this lesion with pathology showing plasmacytoma versus multiple myeloma with complex
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 At presentation, he had no symptoms other than pain and his hemoglobin, calcium and kidney function were normal. He was treated with radiation to the L5 lesion. Patient declined bone
marrow biopsy. He has been treated with steroids but has developed proximal muscle weakness. This has been attributed in part to the steroids but there is also concern for aggressive process in the lumbosacral spine. Patient has recently been
much worse. He saw palliative care for initial visit on February 06 and was prescribed MS IR 7.5 p.o. every 4-6 hours, he had previously tried Percocet but stated it did not work and made him constipated. He was started on bowel regimen by palliative
care, and we started him on gabapentin 300 mg p.o. 3 times daily for pain. His pain has not been well-controlled. He has been essentially confined to his recliner due to pain and shortness of breath as well as a significant increase in lower
extremity swelling. He came to the ED on February 10 with progressive back pain, hip pain, and shortness of breath. He was hypoxic in the ED. Imaging showed bilateral pulmonary emboli and bilateral lower extremity DVTs.
He has been started on unfrac heparin for PE. He continues on dexamethasone taper current dose 2 mg PO BID, Dilaudid 0.5 mg IV PRN, oxycodone 10 mg PO Q4h PRN. For bowels: Senokot BID, Milarax QD, Colace BID. Did not tolerate gabapentin due to
confusion/sedation. States MSIR 7.5 mg was working for the pain as outpt but the constipation has limited how much he is willing to take. Pt passed watery stool while I was in the room.
c/o severe anal pain which he is attributing to constipation. also c/o severe L hip pain. At the moment the anal pain is the larger problem. Daughter Karine present.
Past-Medical/Surgical History
PMHx:
History of bladder cancer, currently LIBAN
Diabetes
Atrial fibrillation not on anticoagulation, has a Linq monitor
Hyperlipidemia
Macular degeneration
CHF
Hiatal hernia
HTN
Gout
Hx GIB
PSHx:
Knee surgery
Cholecystectomy
Tonsillectomy
TURBT
Ophthalmologic surgery
Social:
Former smoker, quit in 1973
Than 1 alcoholic beverage per week
All:
NKDA
Patient Medication
�Medication �Instructions �Recorded �Confirmed �Last Taken �Type
amlodipine 2.5 mg tablet 5 mg PO BID Blood pressure 10/11/17 02/11/24 12/28/23 History
omeprazole 40 mg capsule,delayed 40 mg PO DAILY stomach acid 06/18/21 02/11/24 12/28/23 History
release
empagliflozin 10 mg tablet 10 mg PO DAILY Diabetes/Heart 12/27/23 02/11/24 12/27/23 History
(Jardiance) failure
insulin glargine 100 unit/mL (3 24 unit SC DAILY Diabetes 12/27/23 02/11/24 12/27/23 History
mL) subcutaneous pen (Lantus
Solostar U-100 Insulin)
furosemide 40 mg tablet 60 mg PO DAILY Fluid 12/28/23 02/11/24 12/27/23 History
Retention/Swelling
dexamethasone 2 mg tablet 2 mg PO BID Anti-Inflammatory 02/11/24 02/11/24 Unknown History
morphine 15 mg immediate release 7.5 mg PO Q6H PRN pain 02/11/24 02/11/24 Unknown History
tablet
zolpidem 5 mg tablet 5 mg PO HS PRN insomnia 02/11/24 02/11/24 Unknown History
Active Medications
Generic Name Dose Route Start Last Admin
Trade Name Freq PRN Reason Stop Dose Admin
Acetaminophen 1,000 mg 02/11/24 08:00 02/11/24 22:36
Acetaminophen 500 Mg Tablet PO 03/10/24 07:59 1,000 mg
TID LAURA Administration
Dexamethasone 2 mg 02/11/24 08:00 02/11/24 20:59
Dexamethasone 2 Mg Tablet PO 03/10/24 07:59 2 mg
BID LAURA Administration
Dextrose 12.5 grams 02/11/24 07:56
Dextrose 50% (0.5 Grams/Ml) 50 Ml Syringe IV 03/10/24 07:55
[id number] PRN
hypoglycemia
Protocol
Docusate Sodium 100 mg 02/11/24 08:00 02/11/24 20:59
Docusate Sodium 100 Mg Capsule PO 03/10/24 07:59 100 mg
BID LAURA Administration
Empagliflozin 10 mg 02/11/24 08:00 02/11/24 09:18
Empagliflozin (Jardiance) 10 Mg Tablet PO 03/10/24 07:59 10 mg
DAILY LAURA Administration
Furosemide 40 mg 02/11/24 08:00 02/11/24 16:38
Furosemide 40 Mg (10 Mg/Ml) 4 Ml Vial IV 03/10/24 07:59 Not Given
BID AT 0800,1600 LAURA
Glucagon 1 mg 02/11/24 07:56
Glucagon 1 Mg Vial IM 03/10/24 07:55
PRN PRN
hypoglycemia
Protocol
Heparin Sodium 6,200 units 02/11/24 17:12
Heparin 80 Units/Kg Iv Rebolus IV 03/10/24 17:11
PRN PRN
PTT < OR = 64 seconds
Heparin Sodium 3,100 units 02/11/24 17:12
Heparin 40 Units/Kg Iv Rebolus IV 03/10/24 17:11
PRN PRN
PTT = 64.1 to 72.9 seconds
Hydromorphone HCl 0.5 mg 02/11/24 06:52
Hydromorphone 0.5 Mg/0.5 Ml Syringe IV 02/25/24 06:51
Q4HPRN PRN
Severe Pain
Insulin Glargine 20 units/ 0.2 mls @ 0 mls/hr 02/11/24 10:00 02/11/24 09:27
Device SC 03/10/24 09:59 0.2 mls
DAILY LAURA Administration
As Directed
Heparin Sodium 25,000 units in 250 mls @ 0 mls/hr 02/11/24 16:30 02/11/24 17:27
Heparin 56821 Units/250 Ml IV 250 mls
PER PROTOCOL LAURA Administration
Protocol
Per Protocol
Insulin Aspart 0 units 02/11/24 07:56 02/12/24 08:09
Insulin Aspart Low Resistance 300 Units/3 Ml Pen.Injctr SC 03/10/24 07:55 Not Given
AC LAURA
Protocol
Lidocaine 1 patch 02/11/24 13:30 02/11/24 13:33
Lidocaine 4% Topical Patch TOPICAL 03/10/24 13:29 1 patch
DAILY LAURA Administration
Oxycodone HCl 10 mg 02/11/24 07:56
Oxycodone 10 Mg Regular Release Tablet PO 02/25/24 07:55
Q4HPRN PRN
Moderate Pain
Pantoprazole Sodium 40 mg 02/11/24 09:00 02/11/24 09:18
Pantoprazole 40 Mg Delayed Release Tablet PO 03/10/24 08:59 40 mg
DAILY LAURA Administration
Patch Removal 0 patch 02/11/24 20:00 02/11/24 20:59
Remove Lidocaine Patch REMOVE 03/10/24 19:59 1 patch
DAILY@2000 LAURA Administration
Polyethylene Glycol 17 grams 02/12/24 08:00
Polyethylene Glycol Powder 17 Grams Packet PO 03/11/24 07:59
DAILY LAURA
Sennosides 17.2 mg 02/11/24 20:00 02/11/24 20:59
Sennosides (Senokot) 8.6 Mg Tablet PO 03/10/24 19:59 17.2 mg
BID LAURA Administration
Sodium Chloride 0 flush 02/11/24 07:00
Sodium Chloride 0.9% (Flush) Syringe IV 03/10/24 06:59
PER PROTOCOL LAURA
Review of Systems
-
History Source: Patient, Family and Records
All Other Systems: Reviewed and Negative
Constitutional: Reports No Symptoms
EENT: Reports No Symptoms
Respiratory: Reports No Symptoms
Cardiac: Reports No Symptoms
GI: Reports Constipated and Pain
Breast: Reports No Symptoms
: Reports No Symptoms
Musculoskeletal: Reports Joint Pain (L hip) and Muscle Weakness
Skin: Reports Other (decub ulcer b/l buttocks)
Neuro: Reports No Symptoms
Endocrine: Reports No Symptoms
Hematologic/Lymphatic: Reports No Symptoms
Allergy / Immunology: Reports No Symptoms
Psych: Reports No Symptoms
Physical Exam
-
General: Well Developed, Well Nourished, Appears in Distress and Pain; Negative Comfortable
HEENT: Moist Mucous Membranes; Negative Jaundice
Cardiology: Normal Sinus Rhythm, S1 and S2
Pulmonary: Clear
GI: Soft and Other (no apparent anal ulcer)
Genito-Urinary: Deferred by me
Musculoskeletal: No Clubbing, No Cyanosis and No Edema
Extremities: No C/C/E
Neurology: Non Focal
Skin: Warm, Dry and Other (decub ulcer b/l buttocks)
Hematologic / Lymphatic: No Lymphadenopathy
Psych: Agitated
Labs
Lab Results
WBC 9.9 10^3/uL (4.8-10.8) 02/12/24 06:27
RBC 5.59 10^6/uL (4.70-6.10) 02/12/24 06:27
Hgb 16.3 g/dL (13.0-18.0) 02/12/24 06:27
Hct 48.4 % (39.0-52.0) 02/12/24 06:27
MCV 86.6 fL (80.0-94.0) 02/12/24 06:27
MCH 29.2 pg (27.0-31.0) 02/12/24 06:27
MCHC 33.7 g/dL (33.0-37.0) 02/12/24 06:27
RDW 15.9 % (11.5-14.5) H 02/12/24 06:27
Plt Count 223 10^3/uL (130-400) 02/12/24 06:27
MPV 9.7 fL (7.4-10.4) 02/12/24 06:27
Abs Immat Gran (auto) 0.5 10^3/uL (0-0.05) H 02/11/24 03:16
Absolute Neuts (auto) 10.8 10^3/uL (1.4-6.5) H 02/11/24 03:16
Absolute Lymphs (auto) 0.2 10^3/uL (1.2-3.4) L 02/11/24 03:16
Absolute Monos (auto) 0.7 10^3/uL (0.1-0.6) H 02/11/24 03:16
Absolute Eos (auto) 0.0 10^3/uL (0-0.7) 02/11/24 03:16
Absolute Basos (auto) 0.1 10^3/uL (0-0.2) 02/11/24 03:16
Immature Gran % 4.0 % (0-0.5) H 02/11/24 03:16
Neutrophils % 87.5 % (42.2-75.2) H 02/11/24 03:16
Lymphocytes % 1.9 % (20.5-51.1) L 02/11/24 03:16
Monocytes % 6.0 % (1.7-9.3) 02/11/24 03:16
Eosinophils % 0.0 % (0-6) 02/11/24 03:16
Basophils % 0.6 % (0-2) 02/11/24 03:16
Creatinine 0.9 mg/dL (0.7-1.3) 02/12/24 06:27
Vital Signs
Vital Signs
Temp Pulse Resp BP Pulse Ox
97.5 F 58 18 147/66 92
02/12/24 07:55 02/12/24 07:55 02/12/24 07:55 02/12/24 07:55 02/12/24 07:55
[2024-02-12] MEDS: TYLENOL 1000 MG PO ×3 (08:53→22:13)
[2024-02-12] MEDS: SENOKOT 17.1999999999999993 MG PO ×2 (08:53→20:43)
[2024-02-12] MEDS: DECADRON 2 MG PO (08:54)
[2024-02-12] MEDS: MIRALAX 17 GRAMS PO (08:54)
[2024-02-12] MEDS: JARDIANCE 10 MG PO (08:54)
[2024-02-12] MEDS: PROTONIX 40 MG PO (08:54)
[2024-02-12] MEDS: HEPARIN 6200 UNITS IV (09:01)
[2024-02-12] MEDS: COLACE 100 MG PO ×2 (09:15→20:36)
[2024-02-12] MEDS: LIDOCAINE 4% PATCH 1 PATCH TOPICAL (09:16)
--- NOTE | 2024-02-12 11:17 | WOUNDNOTE ---
BUTTOCKS WITH PHOTO FLASH
--- NOTE | 2024-02-12 11:20 | WOUNDNOTE ---
WO RN note: Patient admitted with acute exacerbation of CHF, multiple myeloma.
See H&P for complete history.
PMH: Plasma cell cancer, A Fib, cardiac ablation x 2, HTN, GI Bleed, gout.
Wound Location and type/assessment: Patient admitted with: B/L buttocks with what appears to be incontinent associated skin damage rather than PI. Patient turned with one assist, having loose stool leakage onto brief and pad. Skin care given and
Calazime applied. Patient reports burning feeling upon application. Has condom catheter in use. Patient for testing, assisted PCT transfer patient to stretcher. Heels intact, using foam adhesives.
Appetite: good.
Pressure redistribution devices in place: On Air overlay with adequate inflation, air chair cushion.
Plan: Will order Zinc oxide Desitin instead of Calazime for reported burning sensation. Patient not a candidate for fecal graphic design manager confirmed nurse Hal. Discussed the above with nurse and will order.
Updated care plan and will follow as needed.
Note to case management of equipment requested for discharge: None
Recommend follow up at wound care center upon discharge.
[2024-02-12 11:23] VITALS: BP 130/69
[2024-02-12 12:05] LABS: Glucose - Point of Care 158 mg/dl (70-99)
[2024-02-12] MEDS: LANTUS SC (12:16)
[2024-02-12] MEDS: HEPARIN 25000 UNITS/250 ML IV (13:17)
[2024-02-12 13:33] LABS: Glycohemoglobin (HgbA1c) 8.8 % (4.0-5.6)
--- NOTE | 2024-02-12 13:44 | W.PN.CARDCBS ---
Addendum entered and electronically signed by Ben Stallings DO 02/12/24 14:48:
I saw and examined the patient.
The Pluck Trimmer's note was reviewed and I agree with the note.
Comment:
LINQ interrogated and without arrhythmia
Appears euvolemic, transition to oral lasix
Tx for PE as per primary service, cont anticoagulation.
Outpt cardiac follow up to be arranged
Discussed with family at bedside.
Please recall if needed.
Original Note:
Today's Communication / Plan
-
Stop Lasix IV and start Lasix 60 mg PO daily
Linq checked by me and no atrial arrhythmia
Impression / Plan
-
Cutter Woodwind Reeds: Dr. Megan Joiner
Impression:
B/L DVT by u/s 02/11/[address] 02/11/24
Acute on chronic HFpEF
Hypoxemia on presentation
Elevated troponin (peak 0.07)
Paroxysmal atrial fibrillation
History of atrial fibrillation status post pulmonary vein isolation 11/26/2013 and 06/05/2014, Not on anticoagulation secondary to GI bleeding monitor through device
Linq monitor in place to monitor for atrial fibrillation, 12/15/2013 and 09/06/2021
Hypertension
Diabetes mellitus
Plasmacytoma
History of bladder cancer�low-grade papillary urothelial carcinoma
History of GI bleed
Elevated hemidiaphragm
Hip and back pain
Aorta atherosclerosis, declined lipid-lowering
Lexiscan nuclear stress test 07/07/2023 small, mild, fixed basal to mid inferior perfusion defect which likely represents attenuation. No ischemia or scar. Ejection fraction 65%.
Echo 07/25/2023 with mild LVH (1 to 1.1 cm). EF 55 to 60%. Normal RV. Mild MR. Trace AI. Mild TR with PA pressure 43 mmHg.
Echo 02/12/2024: EF 60 to 65%, mild aortic regurgitation, mild TR with PAP 52 mmHg
Plan:
-Patient with B/L DVT and PE by scans 02/11/24. Heparin gtt ordered.
-Troponin was 0.07 on admission and relatively flat to downtrending thereafter. Will manage as a nonischemic myocardial injury Troponin elevation due to PE.
-Initially there was concern for acute HF and patient was given Lasix 40 mg IV x1 on 02/11/24. Now that CT is positive for PE will hold off on additional IV diuresis, but will resume outpatient dose of Lasix 60 mg PO daily.
-Linq device checked by me on 02/12/24 and patient has not had any episodes of atrial arrhythmia.
Progress Note - Cutter Woodwind Reeds
Subjective
Date of Service: February 12, 2024
He really needs to move his bowels
Objective
Labs:
02/12/24 06:27
02/12/24 06:27
Labs
Hgb 16.3 g/dL (13.0-18.0) 02/12/24 06:27
Hct 48.4 % (39.0-52.0) 02/12/24 06:27
Plt Count 223 10^3/uL (130-400) 02/12/24 06:27
APTT 54.5 Sec (23.4-35.0) H 02/12/24 07:43
Sodium 131 mmol/L (135-145) L 02/12/24 06:27
Potassium 4.4 mmol/L (3.5-5.1) 02/12/24 06:27
BUN 43 mg/dl (9-20) H 02/12/24 06:27
Creatinine 0.9 mg/dL (0.7-1.3) 02/12/24 06:27
Glucose 91 mg/dl (70-99) 02/12/24 06:27
Troponins
02/11/24 02/11/24 02/11/24
03:16 08:23 15:59
Troponin I 0.070 H* 0.069 H* 0.061 H*
02/11/24
21:51
Troponin I 0.069 H*
Vital Signs and I&O:
Vital Signs
Temp Pulse Resp BP Pulse Ox
97.7 F 75 18 130/69 94
02/12/24 11:23 02/12/24 11:23 02/12/24 11:23 02/12/24 11:23 02/12/24 11:23
Vital Signs
Temp Pulse Resp BP Pulse Ox
97.7 F 75 18 130/69 94
02/12/24 11:23 02/12/24 11:23 02/12/24 11:23 02/12/24 11:23 02/12/24 11:23
Intake & Output
02/10/24 02/11/24 02/12/24 02/13/24
06:59 06:59 06:59 06:59
Intake Total 360 / 360
Output Total 2124
Balance -1764 / -1764
Physical Exam
Physical Exam
GEN: AAOx3
HEENT: MMM
LUNGS: No audible wheeze
CV: SR on tele
NEURO: Gross non-focal
SKIN: No rash
--- NOTE | 2024-02-12 14:26 | W.PN.HOSP.TC ---
Today's Communication/Plan
-
Mag citrate
Heparin gtt
MRI Spine ordered per Oncology
Agree with changing lasix to PO
Assessment / Plan
Assessment / Plan
83-year-old male With back pain fatigue and shortness of breath. LE edema worse lately.
CVS: S1-S2 normal
Chest: CTA B/L, decreased at bases
Abdomen: Soft, NT / Bowel sounds present
Extremities: B/L LE edema,
PERSONNEL MANAGER: Good strength peripheral strength B/L UE and LE
Sacrum Stage [address]-pulmonary embolism left main pulmonary artery extending into the proximal left lower lobe small volume filling defects in the distal right main pulmonary artery extending into proximal right lower lobe no right heart strain. Borderline prominent
caliber central pulmonary arteries bilaterally. Elevated right hemidiaphragm. Marked widespread colonic stool especially in the rectum with mild rectal distention nonobstructive bowel gas pattern. Mild enlarged prostate. Moderate to markedly L1
and L5 vertebral compression fractures
#Acute Hypoxemic Respiratory Failure likely from PE
- Hypoxemia at home (70s) and here (87% RA).
- Lasix chaned to PO ( Doubt acute CHF causing this)
- Update Echo (last 06/2023).
- Cardiology evaluation appreciated
- LE Doppler with DVT and CT with PE
# DVT and PE-on heparin drip. Eventual transition to oral anticoagulants
#Constipation
- Likely due to newly added narcotics.
- Digital disimpaction x 2 today. soft stool removed. Advised patient to try commode as he cannot go in bed.
-Will give Mag citrate
#Plasma Cell Myeloma
Uncontrolled Pain secondary to the above
- Patient with back pain and hip pain secondary to L5 lesion (with other / small lesions also noted at L3, sacrum, iliac).
- Says he had radiation, and steroids. No chemo
- Opiate dependent for pain control, use sparingly till has a BM
- Continue current dexamethasone , changed to daily
- Follows with Dr. Farah- will consult heme routine Monday
#Stage 2 Sacral PI
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
#Benign Hypertension
- Hold amlodipine for now given significant LE edema.
- Follow BP during diuresis and adjust regimen as needed for adequate control.
#DM-II
- On Jardiance, Lantus 24 units as outpatient
- Jardiance and 20 units Lantus here
- Follow glucose and cover with SSI as needed.
- Update A1C.
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
#History of Paroxysmal A-Fib s/p PVI Ablation x 2
- No recurrent A-Fib noted. LINQ in place.
- Not maintained on chronic OAC.
-No arrhythmias on Linq
#Possible portal vein thrombosis-Per MRI in the past-not on anticoagulation
#History of peptic ulcer disease/hiatal hernia-PPI
#Insomnia-continue Ambien
#Atherosclerosis ,Mild to moderate calcified plaque within the left SFA
Per daughter pt doesn't want to take chol meds as he is afraid of side effects
#Diverticulosis
#Gout
#Ex-smoker
#DVT Prophylaxis: Lovenox
#Code Status: Full
D/W RN at bed side
Spoke to daughter at bed side and updated.
Time spent 56 min between 2 visits
Anticipated Discharge: > 48 hours
Subjective/Interval History
-
Date of Service: February 12, 2024
Objective Data
-
Labs:
Laboratory Results
02/12/24 02/12/24 02/12/24
06:27 07:43 14:15
WBC 9.9
Hgb 16.3
Hct 48.4
Plt Count 223
APTT 54.5 H Pending
Sodium 131 L
Potassium 4.4
Chloride 94 L
Carbon Dioxide 32 H
BUN 43 H
Creatinine 0.9
Glucose 91
Calcium 8.2 L
Vital Signs:
Vital Signs
Temp Pulse Resp BP Pulse Ox
97.7 F 75 18 130/69 94
02/12/24 11:23 02/12/24 11:23 02/12/24 11:23 02/12/24 11:23 02/12/24 11:23
I&O
02/11/24 02/12/24 02/13/24
06:59 06:59 06:59
Intake Total 360 / 360
Output Total 2124 / 2124
Balance -1764 / -1764
[2024-02-12] MEDS: CITROMA 300 ML PO (15:09)
[2024-02-12 15:18] LABS: APTT 167.1 Sec (23.4-35.0)
--- NOTE | 2024-02-12 15:36 | VNURNOTE ---
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
Patient is also current with [facility].
[2024-02-12 15:55] VITALS: BP 146/74
[2024-02-12 16:49] LABS: Glucose - Point of Care 146 mg/dl (70-99)
[2024-02-12] MEDS: TYLENOL PO (17:28)
[2024-02-12 19:55] VITALS: BP 128/67
[2024-02-12] MEDS: DESITIN MAXIMUM STRENGTH PASTE 1 APPLIC TOPICAL (20:35)
[2024-02-12 22:02] LABS: Glucose - Point of Care 178 mg/dl (70-99)
[2024-02-12 22:28] LABS: APTT 107.8 Sec (23.4-35.0)
[2024-02-12 23:09] VITALS: BP 118/66
[2024-02-13] VITALS (7 sets, daily range): BP systolic 117–145; BP diastolic 62–77; PULSE 76; O2SAT 92
[2024-02-13 05:20] LABS: Hematocrit 45.4 % (39.0-52.0); Mean Corp Hgb Conc. 35.2 g/dL (33.0-37.0); Mean Corpuscular Hgb 29.7 pg (27.0-31.0); Mean Corpuscular Volume 84.4 fL (80.0-94.0); Mean Platelet Volume 9.1 fL (7.4-10.4); Platelet Count 235 10^3/uL (130-400); Red Blood Cell Count 5.38 10^6/uL (4.70-6.10); Red Cell Dist. Width 16.3 % (11.5-14.5)
[2024-02-13 05:44] LABS: APTT 104.6 Sec (23.4-35.0)
[2024-02-13 06:12] LABS: Blood Urea Nitrogen 35 mg/dl (9-20); Calcium 8.2 mg/dl (8.4-10.2); Carbon Dioxide 31 mmol/L (22-30); Chloride 95 mmol/L (98-107); Estimated Creatinine Clearance 63 ml/min; Glucose 105 mg/dl (70-99); Magnesium 2.7 mg/dl (1.6-2.3); Potassium 3.9 mmol/L (3.5-5.1); Sodium 132 mmol/L (135-145); eGFR > 60.00
--- NOTE | 2024-02-13 06:30 | PTCARENOTE ---
Pt aaox3 able to make his needs known.Pt continued on heparin drip as per protocol.Pt refuses q2 turns aware of skin breakdown.Plan of care continued.
[2024-02-13] MEDS: HEPARIN 25000 UNITS/250 ML IV (07:18)
[2024-02-13] MEDS: TYLENOL 1000 MG PO ×2 (07:35→17:27)
[2024-02-13] MEDS: JARDIANCE 10 MG PO (07:35)
[2024-02-13] MEDS: LASIX 60 MG PO (07:35)
[2024-02-13] MEDS: DECADRON 2 MG PO (07:35)
[2024-02-13] MEDS: PROTONIX 40 MG PO (07:36)
[2024-02-13] MEDS: COLACE PO (07:36)
[2024-02-13] MEDS: MIRALAX PO (07:38)
[2024-02-13] MEDS: LIDOCAINE 4% PATCH TOPICAL ×2 (07:38→07:52)
[2024-02-13] MEDS: SENOKOT PO (07:39)
[2024-02-13 07:40] LABS: Glucose - Point of Care 178 mg/dl (70-99)
[2024-02-13] MEDS: LANTUS 0.200000000000000011 UNITS SC (07:42)
[2024-02-13] MEDS: DESITIN MAXIMUM STRENGTH PASTE 1 APPLIC TOPICAL ×2 (07:44→20:45)
[2024-02-13] MEDS: NOVOLOG FLEXPEN-LOW RESISTANCE 1 UNITS SC ×2 (07:50→13:29)
[2024-02-13] MEDS: LOVENOX 80 MG SC ×2 (10:45→22:02)
--- NOTE | 2024-02-13 11:21 | PN.CDI ---
CDI
- -
CDI:
Physician Documentation Request
Admit Date: 02/11/24 06:21
Dear Doctor Mike,
Patient admitted with pulmonary embolism.
02/10 Peripheral vascular ultrasound: 'Evidence of bilateral deep venous thrombosis. On the right, nonocclusive thrombus in the common femoral vein and popliteal vein. Occlusive thrombus in the proximal to mid femoral vein. On the left, nonocclusive
thrombus in the proximal femoral vein.'
02/11 Hospitalist PN: 'DVT and PE-on heparin drip. Eventual transition to oral anticoagulants'
Clarify which of the following accurately represents the acuity of the DVT. Possible options might include:
Acute
Chronic
Other
Use of terms such as suspected, likely, concern for, or probable (associated with a specific diagnosis that is being evaluated, monitored, or treated as if it exists) are acceptable and can be coded in the inpatient setting, when documented at the
time of discharge.
Thank you,
Faviola Carty RN, BSN
CDI Specialist
Available via [place] text
Please use your independent medical judgment in providing your response.
[2024-02-13 13:23] LABS: Glucose - Point of Care 194 mg/dl (70-99)
--- NOTE | 2024-02-13 13:45 | W.PN.HOSP.TC ---
Today's Communication/Plan
-
X-ray of the abdomen
Continue bowel regimen and encourage bowel movements
PT OT
Heparin switched to Lovenox.
Case management to check pricing for Eliquis and start Eliquis if okay with patient
MRI results reviewed by me after I evaluated the patient. I have not reviewed results of MRI with the patient and I will defer to oncology to review the MRI results with the patient/Family.
Assessment / Plan
Assessment / Plan
83-year-old male With back pain fatigue and shortness of breath. LE edema worse lately.
CVS: S1-S2 normal
Chest: CTA B/L, decreased at bases
Abdomen: Soft, NT / Bowel sounds present
Extremities: B/L LE edema,
ON SITE NURSE: Good strength peripheral strength B/L UE and LE
Sacrum Stage [address]-pulmonary embolism left main pulmonary artery extending into the proximal left lower lobe small volume filling defects in the distal right main pulmonary artery extending into proximal right lower lobe no right heart strain. Borderline prominent
caliber central pulmonary arteries bilaterally. Elevated right hemidiaphragm. Marked widespread colonic stool especially in the rectum with mild rectal distention nonobstructive bowel gas pattern. Mild enlarged prostate. Moderate to markedly L1
and L5 vertebral compression fractures
MRI-redemonstration of large L5 plasmacytoma. Extends into the sacral ala on the right side as well as into the right L5 pedicle. Evidence for widespread osseous malignancy elsewhere may be secondary to myeloma or metastatic urinary bladder cancer
similar to 11/29/2023. 70% compression fraction of L1 vertebral body this is new compared to MRI probably benign insufficiency fracture. No L1 lesion present. Retropulsion related to the fracture is also mild flattening of the thecal sac. Multi
level foraminal stenosis secondary to degenerative findings in the lumbar spine also severe central spinal canal stenosis L4-L5 secondary to degenerative findings. Straightening of the lumbar spine consistent with muscle spasm (MRI images also
reviewed by me)
#Acute Hypoxemic Respiratory Failure likely from PE
- Hypoxemia at home (70s) and here (87% RA).
- Lasix chaned to PO ( Doubt acute CHF causing this).
- Cardiology evaluation appreciated
- LE Doppler with DVT and CT with PE
# DVT and PE-Heparin gtt changed to Lovenox. eventually chaneg to Lovenox
Case management to check coverage
#Constipation
- Likely due to newly added narcotics.
- Digital disimpaction x 2 . soft stool removed.
-Per nursing had more Bms
-Will get an X ray abdomen
-Please continue Miralax
#Plasma Cell Myeloma
Uncontrolled Pain secondary to the above
- Patient with back pain and hip pain secondary to L5 lesion (with other / small lesions also noted at L3, sacrum, iliac).
- Says he had radiation, and steroids. No chemo
- Opiate dependent for pain control, use sparingly till has a BM
- Continue current dexamethasone , changed to daily
-MRI noted
# L1 compression fracture 70%
#Stage 2 Sacral PI
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
#Benign Hypertension
- Hold amlodipine for now given significant LE edema.
- Follow BP during diuresis and adjust regimen as needed for adequate control.
#DM-II
- On Jardiance, Lantus 24 units as outpatient
- Jardiance and 20 units Lantus here
- Follow glucose and cover with SSI as needed.
- Update A1C.
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
#History of Paroxysmal A-Fib s/p PVI Ablation x 2
- No recurrent A-Fib noted. LINQ in place.
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
-No arrhythmias on Linq
#Possible portal vein thrombosis-Per MRI in the past-was not on anticoagulation [place]US[place]
#History of peptic ulcer disease/hiatal hernia-PPI
#Insomnia-continue Ambien
#Atherosclerosis ,Mild to moderate calcified plaque within the left SFA
Pt doesn't want to take chol meds as he is afraid of side effects
#Diverticulosis
#H/O Bladder Cancer
#Gout
#Ex-smoker
#DVT Prophylaxis: Lovenox
#Code Status: Full
D/W RN at bed side
time spent 52 min
Anticipated Discharge: 24 - 48 hours
Subjective/Interval History
-
Date of Service: February 13, 2024
Objective Data
-
Labs:
Laboratory Results
02/13/24
04:56
WBC 8.0
Hgb 16.0
Hct 45.4
Plt Count 235
APTT 104.6 H
Sodium 132 L
Potassium 3.9
Chloride 95 L
Carbon Dioxide 31 H
BUN 35 H
Creatinine 0.9
Glucose 105 H
Calcium 8.2 L
Vital Signs:
Vital Signs
Temp Pulse Resp BP Pulse Ox
97.5 F 61 26 129/70 92
02/13/24 12:22 02/13/24 12:22 02/13/24 12:22 02/13/24 12:22 02/13/24 12:22
I&O
02/12/24 02/13/24 02/14/24
06:59 06:59 06:59
Intake Total 360 / 360 780 / 780
Output Total 2125 / 2125 1300 / 1300
Balance -1765 / -1765 -520 / -520
--- NOTE | 2024-02-13 14:31 | CM ---
Case Management continues to follow; Pineda has a PE and therapy is on hold.
Will continue to follow for discharge planning; anticipate need for SNF transfer at discharge.
[2024-02-13 16:43] LABS: Glucose - Point of Care 133 mg/dl (70-99)
[2024-02-13] MEDS: NOVOLOG FLEXPEN-LOW RESISTANCE SC (17:26)
[2024-02-13] MEDS: SENOKOT 17.1999999999999993 MG PO (20:43)
[2024-02-13] MEDS: COLACE 100 MG PO (20:44)
[2024-02-13 21:20] LABS: Glucose - Point of Care 110 mg/dl (70-99)
[2024-02-13] MEDS: TYLENOL PO (22:58)
[2024-02-14] VITALS (8 sets, daily range): BP systolic 114–147; BP diastolic 59–84; PULSE 71–76; O2SAT 91–93; BMI 20.7
--- NOTE | 2024-02-14 04:53 | DOWNTIME ---
There was a [employer] Client Winch Operator Downtime on 02/14/2024 from 0100 to 02/14/2024 at 0337. Downtime documentation of patient's care, including medication administrations, has been reconciled in the electronic record per guidelines. Refer to the
patient's paper chart under the miscellaneous tab to see printed paper medication records and downtime forms.
[2024-02-14 07:10] LABS: APTT 33.3 Sec (23.4-35.0)
--- NOTE | 2024-02-14 07:54 | W.PN.ONC2 ---
Today's Communication / Plan
-
See PLAN.
Anticipate D/C to SNF for rehab then outpatient modified VRdD to start if PS improves.
Impression
Impression
Multiple myeloma
Steroid myopathy
DVT/PE
Constipation
CHF
Afib with Linq, not on a/c at baseline
Anorectal pain
Progressive weakness with having difficulty managing pt at home
Plan
Plan
MRI lumbosacral spine reviewed. Look stable oncologically from prior MRI 11/30 including:
Redemonstration of large L5 plasmacytoma. Similar to the previous MRI. Evidence for widespread osseous malignancy elsewhere. Also similar to the lumbar spine MRI dated 11/29/2023.
Some new benign findings:
70% compression fracture of L1 vertebral body. This is new compared with previous MRI. This is probably a benign insufficiency fracture, as no L1 lesion was present on the MRI from November,. Retropulsion related to the fracture results in mild
flattening of the thecal sac. Multilevel foraminal stenosis secondary to degenerative findings in the lumbar spine. There is also severe spinal canal stenosis at L4/5 secondary to degenerative findings. Straightening of lumbar spine, consistent with
muscular spasm
Await placement. Suspect he needs SNF for rehab as was having difficulty managing him at home.
Taper dexamethasone to 2 mg daily on 02/11 (has been on 2 BID for 10 days) due to suspected steroid myopathy.
With diagnosis of plasmacytoma confirmed by biopsy, pt also meets diagnostic criteria for active myeloma if there are other osteolytic lesions presents, even though he does not have other CRAB criteria, and in that case bone marrow biopsy would not
be required for definitive diagnosis.
If/when PS improves, plans for modified VRdD being planned. Follows with Dr. Farah. Has [facility]PO scheduled F/U today (will be delayed).
Subjective/Objective
Chief Complaint
ACS Heme Onc
Subjective
Generalized weakness. Had BM x 2. Left hip pain gone. Still with some perianal discomfort from abrasions.
Vital Signs:
Vital Signs
Temp Pulse Resp BP Pulse Ox
97.7 F 67 21 138/72 92
02/14/24 03:45 02/14/24 03:45 02/14/24 03:45 02/14/24 03:45 02/14/24 03:50
Lab Results:
Laboratory Data
WBC 8.0 10^3/uL (4.8-10.8) 02/13/24 04:56
Hgb 16.0 g/dL (13.0-18.0) 02/13/24 04:56
Plt Count 235 10^3/uL (130-400) 02/13/24 04:56
APTT 33.3 Sec (23.4-35.0) 02/14/24 06:29
eGFR > 60.00 02/13/24 04:56
Physical Exam
HEENT: No Jaundice
Cardiology: S1 and S2
Pulmonary: Clear
GI: Soft
Extremities: No C/C/E
[2024-02-14 08:05] LABS: Glucose - Point of Care 71 mg/dl (70-99)
[2024-02-14] MEDS: NOVOLOG FLEXPEN-LOW RESISTANCE SC ×2 (08:26→16:34)
[2024-02-14 08:52] LABS: Hematocrit 48.7 % (39.0-52.0); Hemoglobin 16.4 g/dL (13.0-18.0); Mean Corp Hgb Conc. 33.7 g/dL (33.0-37.0); Mean Corpuscular Hgb 29.3 pg (27.0-31.0); Mean Corpuscular Volume 87.1 fL (80.0-94.0); Mean Platelet Volume 10.4 fL (7.4-10.4); Platelet Count 258 10^3/uL (130-400); Red Blood Cell Count 5.59 10^6/uL (4.70-6.10); Red Cell Dist. Width 16.7 % (11.5-14.5)
[2024-02-14] MEDS: DESITIN MAXIMUM STRENGTH PASTE 1 APPLIC TOPICAL ×2 (09:19→20:55)
[2024-02-14] MEDS: TYLENOL 1000 MG PO ×3 (09:20→23:09)
[2024-02-14] MEDS: LASIX 60 MG PO (09:20)
[2024-02-14] MEDS: SENOKOT 17.1999999999999993 MG PO ×2 (09:20→20:52)
[2024-02-14] MEDS: COLACE 100 MG PO (09:21)
[2024-02-14] MEDS: JARDIANCE 10 MG PO (09:22)
[2024-02-14] MEDS: DECADRON 2 MG PO (09:22)
[2024-02-14] MEDS: LIDOCAINE 4% PATCH TOPICAL (09:22)
[2024-02-14] MEDS: PROTONIX 40 MG PO (09:22)
[2024-02-14] MEDS: ELIQUIS 10 MG PO ×2 (09:23→20:52)
[2024-02-14] MEDS: MIRALAX 17 GRAMS PO (09:23)
[2024-02-14] MEDS: LANTUS 0.200000000000000011 UNITS SC (09:23)
[2024-02-14 09:30] LABS: Blood Urea Nitrogen 28 mg/dl (9-20); Calcium 8.4 mg/dl (8.4-10.2); Carbon Dioxide 30 mmol/L (22-30); Chloride 93 mmol/L (98-107); Estimated Creatinine Clearance 63 ml/min; Glucose 67 mg/dl (70-99); Potassium 3.7 mmol/L (3.5-5.1); Sodium 132 mmol/L (135-145); eGFR > 60.00
--- NOTE | 2024-02-14 11:32 | CM ---
CM met with Pineda yesterday and again today along with his son to discuss d/c plans. Pineda will need to go to SNF prior to returning home. He and his son are reviewing the Medicare STAR list of facilities to determine which they prefer. [facility]
and [facility] were their first choices, however neither facility accepts his insurance.
Encouraged family to tour facilities to assist in determining best fit for Pineda.
CM will continue to follow to coordinate discharge needs.
[2024-02-14 11:59] LABS: Glucose - Point of Care 153 mg/dl (70-99)
[2024-02-14] MEDS: NOVOLOG FLEXPEN-LOW RESISTANCE 1 UNITS SC (12:10)
--- NOTE | 2024-02-14 13:31 | CM ---
JANET met with Pineda and his son to discuss options for SNF rehab that accept [employer] insurance. Referrals made to [facility], [facility], and [facility] in [place] (back up option, as Pineda prefers the other two facilities).
Await responses from SNF and will initiate insurance authorization.
--- NOTE | 2024-02-14 13:53 | W.PN.HOSP.TC ---
Today's Communication/Plan
-
Medically ready for rehab
Assessment / Plan
Assessment / Plan
83-year-old male With back pain fatigue and shortness of breath. LE edema worse lately.
CVS: S1-S2 normal
Chest: CTA B/L, decreased at bases
Abdomen: Soft, NT / Bowel sounds present
Extremities: B/L LE edema better
CT-pulmonary embolism left main pulmonary artery extending into the proximal left lower lobe small volume filling defects in the distal right main pulmonary artery extending into proximal right lower lobe no right heart strain. Borderline prominent
caliber central pulmonary arteries bilaterally. Elevated right hemidiaphragm. Marked widespread colonic stool especially in the rectum with mild rectal distention nonobstructive bowel gas pattern. Mild enlarged prostate. Moderate to markedly L1
and L5 vertebral compression fractures
MRI-redemonstration of large L5 plasmacytoma. Extends into the sacral ala on the right side as well as into the right L5 pedicle. Evidence for widespread osseous malignancy elsewhere may be secondary to myeloma or metastatic urinary bladder cancer
similar to 11/29/2023. 70% compression fraction of L1 vertebral body this is new compared to MRI probably benign insufficiency fracture. No L1 lesion present. Retropulsion related to the fracture is also mild flattening of the thecal sac. Multi
level foraminal stenosis secondary to degenerative findings in the lumbar spine also severe central spinal canal stenosis L4-L5 secondary to degenerative findings. Straightening of the lumbar spine consistent with muscle spasm (MRI images also
reviewed by me)
#Acute Hypoxemic Respiratory Failure likely from PE
- Hypoxemia at home (70s) and here (87% RA).
- Lasix changed to PO ( Doubt acute CHF causing this).
- Cardiology evaluation appreciated
- LE Doppler with DVT and CT with PE
# DVT and PE-Heparin gtt changed to Lovenox to Eliquis
#Constipation
- Likely due to newly added narcotics.
- Digital disimpaction x 2 . soft stool removed.
-Several BMs
-Back pain was likely from constipation
#Plasma Cell Myeloma
Uncontrolled Pain secondary to the above
- Patient with back pain and hip pain secondary to L5 lesion (with other / small lesions also noted at L3, sacrum, iliac).
- Says he had radiation, and steroids. No chemo
- Opiate dependent for pain control, use sparingly till has a BM
- Continue current dexamethasone , changed to daily
-MRI noted-OP F/U with .
# L1 compression fracture 70%
#Stage 2 Sacral PI
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
#Benign Hypertension
- Hold amlodipine for now given significant LE edema.
- Follow BP during diuresis and adjust regimen as needed for adequate control.
#DM-II
- On Jardiance, Lantus 24 units as outpatient
- Jardiance and 19 units Lantus here
- Follow glucose and cover with SSI as needed.
- Update A1C.
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
#History of Paroxysmal A-Fib s/p PVI Ablation x 2
- No recurrent A-Fib noted. LINQ in place.
- Not maintained on chronic OAC ENGINEERING INTERN.
-No arrhythmias on Linq
#Possible portal vein thrombosis-Per MRI in the past-was not on anticoagulation ENGINEERING INTERN
#History of peptic ulcer disease/hiatal hernia-PPI
#Insomnia-continue Ambien
#Atherosclerosis ,Mild to moderate calcified plaque within the left SFA
Pt doesn't want to take chol meds as he is afraid of side effects
#Diverticulosis
#H/O Bladder Cancer
#Gout
#Ex-smoker
#DVT Prophylaxis: Lovenox
#Code Status: Full
D/W RN at bed side
D/W SOn at bed side in detail.
All questions answered
Anticipated Discharge: Within 24 hours
Subjective/Interval History
-
Date of Service: February 14, 2024
Objective Data
-
Labs:
Laboratory Results
02/14/24 02/14/24
06:29 07:54
WBC 8.0
Hgb 16.4
Hct 48.7
Plt Count 258
APTT 33.3
Sodium 132 L
Potassium 3.7
Chloride 93 L
Carbon Dioxide 30
BUN 28 H
Creatinine 0.9
Glucose 67 L
Calcium 8.4
Vital Signs:
Vital Signs
Temp Pulse Resp BP Pulse Ox
97.3 F 76 24 129/67 98
02/14/24 11:32 02/14/24 11:32 02/14/24 11:32 02/14/24 11:32 02/14/24 11:35
I&O
02/13/24 02/14/24 02/15/24
06:59 06:59 06:59
Intake Total 780 / 780 600 / 600
Output Total 1300 / 1300 1700 / 1700
Balance -520 / -520 -1100 / -1100
[2024-02-14 16:22] LABS: Glucose - Point of Care 135 mg/dl (70-99)
[2024-02-14] MEDS: LIDOCAINE 4% PATCH 1 PATCH TOPICAL (16:35)
[2024-02-14] MEDS: COLACE PO (20:48)
[2024-02-14 21:28] LABS: Glucose - Point of Care 106 mg/dl (70-99)
[2024-02-15] MEDS: LIDOCAINE 4% PATCH 1 PATCH TOPICAL (03:04)
[2024-02-15 03:31] VITALS: BP 126/65
[2024-02-15 07:33] VITALS: BP 132/67
[2024-02-15 07:39] LABS: Hemoglobin 15.3 g/dL (13.0-18.0); Mean Corpuscular Hgb 29.3 pg (27.0-31.0); Mean Platelet Volume 9.4 fL (7.4-10.4); Platelet Count 241 10^3/uL (130-400); Red Blood Cell Count 5.23 10^6/uL (4.70-6.10); Red Cell Dist. Width 15.9 % (11.5-14.5); White Blood Cell Count 9.1 10^3/uL (4.8-10.8)
[2024-02-15 08:03] LABS: Glucose - Point of Care 124 mg/dl (70-99)
[2024-02-15] MEDS: MIRALAX PO (08:07)
[2024-02-15] MEDS: COLACE PO ×2 (08:07→20:24)
[2024-02-15] MEDS: SENOKOT PO (08:07)
[2024-02-15] MEDS: NOVOLOG FLEXPEN-LOW RESISTANCE SC ×3 (08:07→17:33)
[2024-02-15] MEDS: ELIQUIS 10 MG PO ×2 (08:08→20:25)
[2024-02-15] MEDS: LASIX 60 MG PO (08:08)
[2024-02-15] MEDS: PROTONIX 40 MG PO (08:09)
[2024-02-15] MEDS: LANTUS 0.190000000000000002 UNITS SC (08:09)
[2024-02-15] MEDS: DECADRON 2 MG PO (08:09)
[2024-02-15] MEDS: TYLENOL 1000 MG PO ×3 (08:09→21:49)
[2024-02-15] MEDS: JARDIANCE 10 MG PO (08:09)
[2024-02-15] MEDS: DESITIN MAXIMUM STRENGTH PASTE 1 APPLIC TOPICAL ×2 (08:10→20:27)
--- NOTE | 2024-02-15 10:30 | CM ---
JANET met with Pineda and his daughter. Decision on destination has been changed to [facility]. [facility] is reviewing for authorization; will need to update the destination, since [facility] was originally the destination of choice.
Daughter has spoken with [facility] and is waiting to hear if Pineda can be transferred prior to [employer] authorization and pay privately. I spoke with Mercy Lagunas at [facility] and she is waiting for a determination from her Senior Pensions Administrator.
JANET will follow up with family regarding ability to pay privately at [facility] while awaiting SNF authorization. Pineda feels ready to leave the hospital and would like to have more autonomy, which he feels will happen when he gets to [facility].
--- NOTE | 2024-02-15 11:29 | W.PN.ONC ---
Today's Communication / Plan
-
Degenerative arthritis with spinal stenosis
Pulmonary embolus with pleuritic discomfort
L1 and L5 compression fractures
Deconditioning
Follow-up [facility] for initiation of systemic therapy for myeloma
Impression
Impression
Multiple myeloma
Steroid myopathy
DVT/PE
Constipation
CHF
Afib with Linq, not on a/c at baseline
Anorectal pain
Progressive weakness with having difficulty managing pt at home
Subjective/Objective
Subjective/Objective
Continue discomfort radiating from the right. Treated plasmacytoma. Some pleuritic discomfort. Some continued pleuritic discomfort
Vital Signs:
Vital Signs
Temp Pulse Resp BP Pulse Ox
97.2 F 68 26 132/67 97
02/15/24 07:33 02/15/24 07:33 02/15/24 07:33 02/15/24 07:33 02/15/24 08:10
CVS: S1-S2 normal
Chest: CTA B/L, decreased at bases
Abdomen: Soft, NT / Bowel sounds present
Extremities: B/L LE edema better
Lab Results:
Laboratory Data
WBC 9.1 10^3/uL (4.8-10.8) 02/15/24 06:35
Hgb 15.3 g/dL (13.0-18.0) 02/15/24 06:35
Plt Count 241 10^3/uL (130-400) 02/15/24 06:35
APTT 33.3 Sec (23.4-35.0) 02/14/24 06:29
eGFR > 60.00 02/14/24 07:54
[2024-02-15 11:47] VITALS: BP 129/69
[2024-02-15 12:25] LABS: Glucose - Point of Care 130 mg/dl (70-99)
--- NOTE | 2024-02-15 13:42 | W.PN.HOSP.TC ---
Today's Communication/Plan
-
Discharge when a bed is available
Assessment / Plan
Assessment / Plan
83-year-old male With back pain fatigue and shortness of breath. LE edema worse lately.
CVS: S1-S2 normal
Chest: CTA B/L, decreased at bases
Abdomen: Soft, NT / Bowel sounds present
Extremities: B/L LE edema better
CT-pulmonary embolism left main pulmonary artery extending into the proximal left lower lobe small volume filling defects in the distal right main pulmonary artery extending into proximal right lower lobe no right heart strain. Borderline prominent
caliber central pulmonary arteries bilaterally. Elevated right hemidiaphragm. Marked widespread colonic stool especially in the rectum with mild rectal distention nonobstructive bowel gas pattern. Mild enlarged prostate. Moderate to markedly L1
and L5 vertebral compression fractures
MRI-redemonstration of large L5 plasmacytoma. Extends into the sacral ala on the right side as well as into the right L5 pedicle. Evidence for widespread osseous malignancy elsewhere may be secondary to myeloma or metastatic urinary bladder cancer
similar to 11/29/2023. 70% compression fraction of L1 vertebral body this is new compared to MRI probably benign insufficiency fracture. No L1 lesion present. Retropulsion related to the fracture is also mild flattening of the thecal sac. Multi
level foraminal stenosis secondary to degenerative findings in the lumbar spine also severe central spinal canal stenosis L4-L5 secondary to degenerative findings. Straightening of the lumbar spine consistent with muscle spasm (MRI images also
reviewed by me)
#Acute Hypoxemic Respiratory Failure likely from PE
- Hypoxemia at home (70s) and here (87% RA).
- Lasix changed to PO ( Doubt acute CHF causing this).
- Cardiology evaluation appreciated
- LE Doppler with DVT and CT with PE
# DVT and PE-Heparin gtt changed to Lovenox to Eliquis
#Constipation
- Likely due to newly added narcotics.
- Digital disimpaction x 2 . soft stool removed.
-Several BMs
-Back pain was likely from constipation
#Plasma Cell Myeloma
Uncontrolled Pain secondary to the above
- Patient with back pain and hip pain secondary to L5 lesion (with other / small lesions also noted at L3, sacrum, iliac).
- Says he had radiation, and steroids. No chemo
- Opiate dependent for pain control, use sparingly till has a BM
- Continue current dexamethasone , changed to daily
-MRI noted-OP F/U with .
# L1 compression fracture 70%
#Stage 2 Sacral PI
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
#Benign Hypertension
- Hold amlodipine for now given significant LE edema.
- Follow BP during diuresis and adjust regimen as needed for adequate control.
#DM-II
- On Jardiance, Lantus 24 units as outpatient
- Jardiance and 19 units Lantus here
- Follow glucose and cover with SSI as needed.
- A1C. 8.8
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
#History of Paroxysmal A-Fib s/p PVI Ablation x 2
- No recurrent A-Fib noted. LINQ in place.
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
-No arrhythmias on Linq
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
#History of peptic ulcer disease/hiatal hernia-PPI
#Insomnia-continue Ambien
#Atherosclerosis ,Mild to moderate calcified plaque within the left SFA
Pt doesn't want to take chol meds as he is afraid of side effects
#Diverticulosis
#H/O Bladder Cancer
#Gout
#Ex-smoker
#DVT Prophylaxis: Lovenox
#Code Status: Full
D/W RN
D/W
Spoke to daughter and updated in detail
Anticipated Discharge: Today
Subjective/Interval History
-
Date of Service: February 15, 2024
Objective Data
-
Labs:
Laboratory Results
02/15/24
06:35
WBC 9.1
Hgb 15.3
Hct 45.0
Plt Count 241
Vital Signs:
Vital Signs
Temp Pulse Resp BP Pulse Ox
97.4 F 66 20 129/69 93
02/15/24 11:47 02/15/24 11:47 02/15/24 11:47 02/15/24 11:47 02/15/24 11:47
I&O
02/14/24 02/15/24 02/16/24
06:59 06:59 06:59
Intake Total 600 / 600 1580 / 1580
Output Total 1700 / 1700 900 / 900
Balance -1100 / -1100 680 / 680
[2024-02-15 15:43] VITALS: BP 124/69
--- NOTE | 2024-02-15 16:24 | CM ---
Phillip determined that having Pineda transfer and pay privately would not be beneficial for Pineda, as he would not be able to get therapy, and would have to pay upfront for the stay and likely wait a month to be refunded the balance not used.
Pineda and his daughter are aware of this; Pineda is disappointed.
Lyndsay galvan is in progress, so hopefully approval will come through tomorrow.
[2024-02-15 17:11] LABS: Glucose - Point of Care 129 mg/dl (70-99)
[2024-02-15 19:41] VITALS: BP 126/71
[2024-02-15] MEDS: SENOKOT 17.1999999999999993 MG PO (20:23)
[2024-02-15 21:23] LABS: Glucose - Point of Care 207 mg/dl (70-99)
[2024-02-15 23:29] VITALS: BP 140/74
[2024-02-16 03:38] VITALS: BP 146/73
[2024-02-16 07:18] LABS: Glucose - Point of Care 96 mg/dl (70-99)
[2024-02-16 07:35] VITALS: BP 122/65
[2024-02-16 07:39] VITALS: BMI 24.7
[2024-02-16] MEDS: TYLENOL 1000 MG PO ×2 (08:16→15:27)
[2024-02-16] MEDS: JARDIANCE 10 MG PO (08:16)
[2024-02-16] MEDS: DECADRON 2 MG PO (08:16)
[2024-02-16] MEDS: PROTONIX 40 MG PO (08:16)
[2024-02-16] MEDS: LANTUS 0.190000000000000002 UNITS SC (08:17)
[2024-02-16] MEDS: LIDOCAINE 4% PATCH 1 PATCH TOPICAL (08:17)
[2024-02-16] MEDS: SENOKOT 17.1999999999999993 MG PO (08:17)
[2024-02-16] MEDS: ELIQUIS 10 MG PO (08:17)
[2024-02-16] MEDS: LASIX 60 MG PO (08:17)
[2024-02-16] MEDS: NOVOLOG FLEXPEN-LOW RESISTANCE SC ×2 (08:18→11:45)
[2024-02-16] MEDS: COLACE PO (08:19)
[2024-02-16] MEDS: MIRALAX PO (08:19)
[2024-02-16] MEDS: DESITIN MAXIMUM STRENGTH PASTE 1 APPLIC TOPICAL (08:19)
--- NOTE | 2024-02-16 09:12 | W.PN.HOSP.TC ---
Addendum entered and electronically signed by Mars Mckeon MD 02/16/24 13:48:
Acute DVT and PE
Original Note:
Today's Communication/Plan
-
Medically stable for discharge.
Assessment / Plan
Assessment / Plan
83-year-old male With back pain fatigue and shortness of breath. LE edema worse lately.
CVS: S1-S2 normal
Chest: CTA B/L, decreased at bases
Abdomen: Soft, NT / Bowel sounds present
Extremities: B/L LE edema better
CT-pulmonary embolism left main pulmonary artery extending into the proximal left lower lobe small volume filling defects in the distal right main pulmonary artery extending into proximal right lower lobe no right heart strain. Borderline prominent
caliber central pulmonary arteries bilaterally. Elevated right hemidiaphragm. Marked widespread colonic stool especially in the rectum with mild rectal distention nonobstructive bowel gas pattern. Mild enlarged prostate. Moderate to markedly L1
and L5 vertebral compression fractures
MRI-redemonstration of large L5 plasmacytoma. Extends into the sacral ala on the right side as well as into the right L5 pedicle. Evidence for widespread osseous malignancy elsewhere may be secondary to myeloma or metastatic urinary bladder cancer
similar to 11/29/2023. 70% compression fraction of L1 vertebral body this is new compared to MRI probably benign insufficiency fracture. No L1 lesion present. Retropulsion related to the fracture is also mild flattening of the thecal sac. Multi
level foraminal stenosis secondary to degenerative findings in the lumbar spine also severe central spinal canal stenosis L4-L5 secondary to degenerative findings. Straightening of the lumbar spine consistent with muscle spasm (MRI images also
reviewed by me)
#Acute Hypoxemic Respiratory Failure likely from PE
- Hypoxemia at home (70s) and here (87% RA).
- Lasix changed to PO ( Doubt acute CHF causing this).
- Cardiology evaluation appreciated
- LE Doppler with DVT and CT with PE
# DVT and PE-Heparin gtt changed to Lovenox to Eliquis
#Constipation
- Likely due to newly added narcotics.
- Digital disimpaction x 2 . soft stool removed.
-Several BMs
-Back pain was likely from constipation
#Plasma Cell Myeloma
Uncontrolled Pain secondary to the above
- Patient with back pain and hip pain secondary to L5 lesion (with other / small lesions also noted at L3, sacrum, iliac).
- Says he had radiation, and steroids. No chemo
- Opiate dependent for pain control, use sparingly till has a BM
- Continue current dexamethasone , changed to daily
-MRI noted-OP F/U with .
# L1 compression fracture 70%
#Stage 2 Sacral PI
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
#Benign Hypertension
- Hold amlodipine for now given significant LE edema.
- Wont need to restart
#DM-II
- On Jardiance, Lantus 24 units as outpatient
- Jardiance and 19 units Lantus here
- Follow glucose and cover with SSI as needed.
- A1C. 8.8
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
#History of Paroxysmal A-Fib s/p PVI Ablation x 2
- No recurrent A-Fib noted. LINQ in place.
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
-No arrhythmias on Linq
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
#History of peptic ulcer disease/hiatal hernia-PPI
#Insomnia-continue Ambien
#Atherosclerosis ,Mild to moderate calcified plaque within the left SFA
Pt doesn't want to take chol meds as he is afraid of side effects
#Diverticulosis
#H/O Bladder Cancer
#Gout
#Ex-smoker
#DVT Prophylaxis: Lovenox
#Code Status: Full
D/W RN at bed side
Spoke to daughter and updated in detail 02/15/24
Anticipated Discharge: Today
Subjective/Interval History
-
Date of Service: February 16, 2024
Objective Data
-
Vital Signs:
Vital Signs
Temp Pulse Resp BP Pulse Ox
97.2 F 81 20 122/65 92
02/16/24 07:35 02/16/24 08:17 02/16/24 07:35 02/16/24 08:17 02/16/24 07:35
I&O
02/15/24 02/16/24 02/17/24
06:59 06:59 06:59
Intake Total 1580 / 1580 1140 / 1140
Output Total 900 / 900
Balance 680 / 680 1140 / 1140
--- NOTE | 2024-02-16 09:14 | W.DS.TRANS ---
Addendum entered and electronically signed by Mars Mckeon MD 02/16/24 15:20:
Dictation- [id number]
Original Note:
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
-
Discharge Instructions:
Sleep Apnea Risk High
Discharge Diagnosis/Procedures Acute hypoxic respiratory failure, PE, DVT,
constipation, plasma cell myeloma, L1
compression fracture, stage II pressure injury
of the sacrum, hyponatremia, hypertension,
diabetes, proximal atrial fibrillation, peptic
ulcer disease, insomnia, atherosclerosis,
diverticulosis, history of bladder cancer
Diet Diabetic, Carb Controlled
Activity As tolerated
Driving Restrictions No driving
Other Services OT,PT
Instructions:
Stand-Alone Forms:
Changes to Home Medications: Yes
Discharge Medications:
DC Medications w/original date entered in [facility]
omeprazole 40 mg capsule,delayed release 40 mg PO DAILY stomach acid 06/18/21
empagliflozin 10 mg tablet (Jardiance) 10 mg PO DAILY Diabetes/Heart failure 12/27/23
furosemide 40 mg tablet 60 mg PO DAILY Fluid Retention/Swelling 12/28/23
acetaminophen 500 mg tablet (Tylenol Extra Strength) 1,000 mg (2 x 500 mg) PO TID Pain #30 tabs 02/15/24
apixaban 5 mg tablet (Eliquis) 10 mg (2 x 5 mg) PO BID Blood clot prevention/tx #0 tabs 02/15/24
dexamethasone 2 mg tablet 2 mg PO DAILY Anti-Inflammatory #0 tabs 02/15/24
docusate sodium 100 mg capsule 100 mg PO BID Constipation #0 caps 02/15/24
insulin glargine 100 unit/mL (3 mL) subcutaneous pen (Lantus Solostar U-100 Insulin) 19 unit (0.19 mL) SC DAILY Diabetes #0 mL 02/15/24
lidocaine 4 % topical patch 1 patch topical DAILY Pain #0 ea 02/15/24
oxycodone 5 mg capsule 5 mg PO Q6H PRN severe pain #6 caps 02/15/24
sennosides 8.6 mg tablet (Senna Laxative) 17.2 mg (2 x 8.6 mg) PO HS Constipation #0 tabs 02/15/24
zolpidem 5 mg tablet (Ambien) 2.5 mg (1/2 x 5 mg) PO HS PRN sleep #2 tabs 02/15/24
MiraLAX 17 g daily
Home Medication Changes
Norvasc discontinued
Morphine changed to oxycodone
Lidocaine patches
MiraLAX is new
Senokot is new
Lantus decreased
Eliquis is new
Pending Results: No
--- NOTE | 2024-02-16 10:32 | WOUNDNOTE ---
WO RN NOTE: Patients MASD of buttocks assessed prior to discharge. Patient reports tenderness to open areas and states he likes the zinc ointment. Open areas appeared improved when compared to pictures from 12/12. Continue appropriate care with zinc
ointment at SNF.
--- NOTE | 2024-02-16 10:32 | CM ---
Addendum entered by Lakshmi Bajwa RN 02/16/24 13:03:
Jen called form [employer] approved 02/16/24 to 02/28/24 with Ref # [id number] NRD fax clinical to [phone] Belén at [facility] aware Karine martin.
Addendum entered by Lakshmi Bajwa RN 02/16/24 11:10:
spoke with mike Milton she is in agreement with dc. Mi waiting on auth. She requested Ambulance. Medical nec form completed.Agrees with IMM .
Original Note:
MD entered discharge order.
Checked [employer] web site Ref # [id number] is still pending.
Call [employer] stil pending.
Sent email [email or web address] will need for auth.
Spoke with Belén at [facility] bed is ready after auth.
Phillip
report [phone]
Fax [phone]
PLAN To [facility] after auth obtained from [employer]
[2024-02-16 11:04] VITALS: BP 119/60
[2024-02-16] MEDS: ULTRAM 50 MG PO (11:29)
[2024-02-16 11:43] LABS: Glucose - Point of Care 145 mg/dl (70-99)
[2024-02-16 15:30] VITALS: BP 120/68
[2024-02-16 16:14] LABS: Glucose - Point of Care 175 mg/dl (70-99)
[2024-02-16] MEDS: NOVOLOG FLEXPEN-LOW RESISTANCE 1 UNITS SC (16:26)
== END 2024-02-16 17:27 | DRG 175 ==
LOC: 4 EAST ACU 06:21
PROVIDERS: ADMITTING PHYSICIAN Hospitalist; ATTENDING PHYSICIAN Hospitalist; CONSULT PHYSICIAN Internal Medicine Cardiovascular Disease; EMERGENCY PHYSICIAN Emergency Medicine; FAMILY PHYSICIAN Internal Medicine; OTHER PHYSICIAN Internal Medicine Hematology & Oncology
DX: I26.99 Other pulmonary embolism without acute cor pulmonale (principal); I50.33 Acute on chronic diastolic (congestive) heart failure; J96.01 Acute respiratory failure with hypoxia; C90.00 Multiple myeloma not having achieved remission; E87.1 Hypo-osmolality and hyponatremia; I5A Non-ischemic myocardial injury (non-traumatic); C90.30 Solitary plasmacytoma not having achieved remission; E22.2 Syndrome of inappropriate secretion of antidiuretic hormone; I82.403 Acute embolism and thrombosis of unspecified deep veins of lower extremity, bilateral; I11.0 Hypertensive heart disease with heart failure; Z87.891 Personal history of nicotine dependence; E11.36 Type 2 diabetes mellitus with diabetic cataract; I70.0 Atherosclerosis of aorta; I48.91 Unspecified atrial fibrillation; L89.152 Pressure ulcer of sacral region, stage 2
CPT/HCPCS: 12011; 71045; 71275; 72158; 74018; 74177; 80048; 80053; 80061; 82962; 83036; 83735; 83880; 83930; 83935; 84300; 84443; 84484; 85025; 85027; 85730; 93005; 93306; 93970; 96374; 96375; 97163; 97167; 97530; 97535; 99285; A9575; Q9967

== ENCOUNTER → 2024-02-19 09:56 | Outpatient (REF) | payer OTHER, SELFPAY ==
[2024-02-19 11:16] LABS: Hematocrit 47.8 % (39.0-52.0); Hemoglobin 15.6 g/dL (13.0-18.0); Mean Corp Hgb Conc. 32.6 g/dL (33.0-37.0); Mean Corpuscular Hgb 29.1 pg (27.0-31.0); Mean Corpuscular Volume 89.2 fL (80.0-94.0); Mean Platelet Volume 9.8 fL (7.4-10.4); Platelet Count 295 10^3/uL (130-400); Red Blood Cell Count 5.36 10^6/uL (4.70-6.10); Red Cell Dist. Width 16.5 % (11.5-14.5); White Blood Cell Count 13.7 10^3/uL (4.8-10.8)
[2024-02-19 11:40] LABS: ALT (SGPT) 23 U/L (0-50); AST (SGOT) 32 U/L (17-59); Albumin 2.5 g/dl (3.5-5.0); Alkaline Phosphatase 168 U/L (38-126); Blood Urea Nitrogen 22 mg/dl (9-20); Calcium 8.3 mg/dl (8.4-10.2); Carbon Dioxide 25 mmol/L (22-30); Chloride 99 mmol/L (98-107); Glucose 51 mg/dl (70-99); Potassium 3.3 mmol/L (3.5-5.1); Sodium 133 mmol/L (135-145); Total Bilirubin 0.6 mg/dl (0.2-1.3); Total Protein 5.2 g/dl (6.3-8.2); eGFR > 60.00
== END ==
LOC: OLABWHC 09:56
PROVIDERS: ATTENDING PHYSICIAN Family Medicine
DX: I50.32 Chronic diastolic (congestive) heart failure (principal); E11.9 Type 2 diabetes mellitus without complications; I10 Essential (primary) hypertension; I48.91 Unspecified atrial fibrillation
CPT/HCPCS: 36415; 80053; 85027

== ENCOUNTER → 2024-03-04 09:39 | Outpatient (REF) | payer OTHER, SELFPAY ==
[2024-03-04 10:46] LABS: Blood Urea Nitrogen 31 mg/dl (9-20); Calcium 8.2 mg/dl (8.4-10.2); Carbon Dioxide 27 mmol/L (22-30); Chloride 102 mmol/L (98-107); Glucose 88 mg/dl (70-99); Potassium 4.3 mmol/L (3.5-5.1); Sodium 135 mmol/L (135-145); eGFR > 60.00
[2024-03-04 12:19] LABS: % Basophils 1.3 % (0-2); % Eosinophils 1.6 % (0-6); % Immature Granulocytes 6.1 % (0-0.5); % Lymphocytes 4.5 % (20.5-51.1); % Monocytes 6.8 % (1.7-9.3); % Neutrophils 79.7 % (42.2-75.2); Absolute Basophils 0.1 10^3/uL (0-0.2); Absolute Eosinophils 0.1 10^3/uL (0-0.7); Absolute Immature Granulocytes 0.5 10^3/uL (0-0.05); Absolute Lymphocytes 0.4 10^3/uL (1.2-3.4); Absolute Monocytes 0.6 10^3/uL (0.1-0.6); Absolute Neutrophils 6.9 10^3/uL (1.4-6.5); Hematocrit 42.6 % (39.0-52.0); Mean Corp Hgb Conc. 32.9 g/dL (33.0-37.0); Mean Corpuscular Hgb 29.4 pg (27.0-31.0); Mean Corpuscular Volume 89.3 fL (80.0-94.0); Mean Platelet Volume 9.8 fL (7.4-10.4); Nucleated Red Blood Cells % 0 % (-); Platelet Count 311 10^3/uL (130-400); Red Blood Cell Count 4.77 10^6/uL (4.70-6.10); Red Cell Dist. Width 17.5 % (11.5-14.5); White Blood Cell Count 8.6 10^3/uL (4.8-10.8)
== END ==
LOC: OLABWHC 09:39
PROVIDERS: ATTENDING PHYSICIAN Family Medicine
DX: C90.00 Multiple myeloma not having achieved remission (principal); E11.9 Type 2 diabetes mellitus without complications; N18.9 Chronic kidney disease, unspecified
CPT/HCPCS: 36415; 80048; 85025

== ENCOUNTER → 2024-03-05 13:50 | Outpatient (REF) | payer OTHER, SELFPAY ==
[2024-03-05 14:36] LABS: % Basophils 0.6 % (0-2); % Eosinophils 0.2 % (0-6); % Immature Granulocytes 4.8 % (0-0.5); % Lymphocytes 2.6 % (20.5-51.1); % Monocytes 4.4 % (1.7-9.3); % Neutrophils 87.4 % (42.2-75.2); Absolute Basophils 0.1 10^3/uL (0-0.2); Absolute Immature Granulocytes 0.6 10^3/uL (0-0.05); Absolute Lymphocytes 0.3 10^3/uL (1.2-3.4); Absolute Monocytes 0.6 10^3/uL (0.1-0.6); Hematocrit 45.4 % (39.0-52.0); Hemoglobin 14.9 g/dL (13.0-18.0); Mean Corp Hgb Conc. 32.8 g/dL (33.0-37.0); Mean Corpuscular Volume 88.3 fL (80.0-94.0); Nucleated Red Blood Cells % 0 % (-); Platelet Count 389 10^3/uL (130-400); Red Blood Cell Count 5.14 10^6/uL (4.70-6.10); Red Cell Dist. Width 17.7 % (11.5-14.5); White Blood Cell Count 12.6 10^3/uL (4.8-10.8)
[2024-03-05 15:50] LABS: ALT (SGPT) 26 U/L (0-50); AST (SGOT) 41 U/L (17-59); Albumin 3.2 g/dl (3.5-5.0); Alkaline Phosphatase 189 U/L (38-126); Blood Urea Nitrogen 35 mg/dl (9-20); Calcium 8.4 mg/dl (8.4-10.2); Carbon Dioxide 30 mmol/L (22-30); Chloride 97 mmol/L (98-107); Glucose 230 mg/dl (70-99); Potassium 4.4 mmol/L (3.5-5.1); Sodium 134 mmol/L (135-145); Total Bilirubin 0.6 mg/dl (0.2-1.3); Total Protein 6.2 g/dl (6.3-8.2); eGFR > 60.00
[2024-03-05 16:15] LABS: Hepatitis B Surface Antigen Negative (Negative)
[2024-03-05 16:34] LABS: Hepatitis B Core Ab, Total Negative (Negative); Hepatitis B Surface Antibody Negative
== END ==
LOC: REG 13:50
PROVIDERS: ATTENDING PHYSICIAN Internal Medicine Hematology & Oncology; FAMILY PHYSICIAN Internal Medicine
DX: C67.9 Malignant neoplasm of bladder, unspecified (principal); C90.00 Multiple myeloma not having achieved remission; K59.00 Constipation, unspecified; M25.552 Pain in left hip; R53.1 Weakness
CPT/HCPCS: 36415; 80053; 85025; 86704; 86706; 86850; 86900; 86901; 87340

== ENCOUNTER → 2024-03-25 11:31 | Outpatient (REF) | payer OTHER, SELFPAY ==
[2024-03-25 12:10] LABS: % Basophils 0.1 % (0-2); % Eosinophils 1.1 % (0-6); % Immature Granulocytes 0.9 % (0-0.5); % Lymphocytes 2.3 % (20.5-51.1); % Monocytes 1.9 % (1.7-9.3); % Neutrophils 93.7 % (42.2-75.2); Absolute Eosinophils 0.1 10^3/uL (0-0.7); Absolute Immature Granulocytes 0.1 10^3/uL (0-0.05); Absolute Lymphocytes 0.2 10^3/uL (1.2-3.4); Absolute Monocytes 0.1 10^3/uL (0.1-0.6); Hematocrit 44.5 % (39.0-52.0); Mean Corp Hgb Conc. 33.7 g/dL (33.0-37.0); Mean Corpuscular Hgb 29.9 pg (27.0-31.0); Mean Corpuscular Volume 88.6 fL (80.0-94.0); Mean Platelet Volume 9.3 fL (7.4-10.4); Nucleated Red Blood Cells % 0 % (-); Platelet Count 275 10^3/uL (130-400); Red Blood Cell Count 5.02 10^6/uL (4.70-6.10); Red Cell Dist. Width 17.6 % (11.5-14.5); White Blood Cell Count 7.5 10^3/uL (4.8-10.8)
[2024-03-25 12:37] LABS: ALT (SGPT) 27 U/L (0-50); AST (SGOT) 31 U/L (17-59); Albumin 3.1 g/dl (3.5-5.0); Alkaline Phosphatase 156 U/L (38-126); Blood Urea Nitrogen 40 mg/dl (9-20); Calcium 8.4 mg/dl (8.4-10.2); Carbon Dioxide 26 mmol/L (22-30); Chloride 102 mmol/L (98-107); Glucose 111 mg/dl (70-99); Potassium 4.1 mmol/L (3.5-5.1); Sodium 134 mmol/L (135-145); Total Bilirubin 0.6 mg/dl (0.2-1.3); Total Protein 5.5 g/dl (6.3-8.2); eGFR > 60.00
== END ==
LOC: REG 11:31
PROVIDERS: ATTENDING PHYSICIAN Internal Medicine Hematology & Oncology; FAMILY PHYSICIAN Internal Medicine
DX: C67.9 Malignant neoplasm of bladder, unspecified (principal); C90.00 Multiple myeloma not having achieved remission; K59.00 Constipation, unspecified; M25.552 Pain in left hip; R53.1 Weakness
CPT/HCPCS: 36415; 80053; 85025

== ENCOUNTER 2024-04-08 05:37 | Emergency (ER) | payer OTHER, SELFPAY ==
[2024-04-08 05:43] VITALS: BP 101/61
[2024-04-08 05:45] VITALS: BP 101/61
[2024-04-08 06:00] VITALS: BP 107/59
[2024-04-08 06:29] LABS: Blood Urea Nitrogen 36 mg/dl (9-20); Calcium 8.8 mg/dl (8.4-10.2); Carbon Dioxide 25 mmol/L (22-30); Chloride 96 mmol/L (98-107); Glucose 138 mg/dl (70-99); Sodium 130 mmol/L (135-145); eGFR > 60.00
[2024-04-08 06:48] LABS: Hematocrit 41.7 % (39.0-52.0); Hemoglobin 14.1 g/dL (13.0-18.0); Mean Corp Hgb Conc. 33.8 g/dL (33.0-37.0); Mean Corpuscular Hgb 29.1 pg (27.0-31.0); Mean Corpuscular Volume 86.2 fL (80.0-94.0); Mean Platelet Volume 9.6 fL (7.4-10.4); Platelet Count 333 10^3/uL (130-400); Red Blood Cell Count 4.84 10^6/uL (4.70-6.10); Red Cell Dist. Width 17.1 % (11.5-14.5); White Blood Cell Count 5.6 10^3/uL (4.8-10.8)
[2024-04-08 07:00] VITALS: BP 113/72
--- NOTE | 2024-04-08 07:17 | ED.GENMED ---
History of Present Illness
General
Chief Complaint: Generalized Pain
Source: patient and family
Time Seen by Provider: 04/08/24 07:06
History of Present Illness
History of Present Illness:
83-year-old male with past medical history of multiple myeloma, CHF, paroxysmal atrial fibrillation, DVT/PE, vlj-umflvzd-ozrgzlnje diabetes presenting to the emergency department for evaluation of worsening lower back pain combined with change in
mental status per daughter who states that the patient seemed very confused after he attempted to go to bed last night but was found wandering the kitchen and had been naked at the time. Daughter notes that patient's pain seems to have been
increasing over the last 2 weeks and patient has been needing increased morphine to control the pain which he gets for palliative care due to the multiple myeloma. Patient has significant fractures and areas of bony involvement and spine from his
multiple myeloma. Patient is on palliative care through [facility]. There were no new falls or traumatic injuries. Patient denies any focal weakness or numbness. Presently stating pain is about the same as it always is. Daughter does note
patient was not using his oxygen at all yesterday until bedtime. She does note to me that the oxygen is usually used for bedtime but patient will use this throughout the day as well when needed. No reported fevers chills, rigors, nausea, vomiting,
bowel changes or urinary symptoms. No other concerns at this time.
Past History
Past History
ED Past Medical History: Asthma (Mild allergic), Cancer (plasma cell cancer), CHF, HTN, NIDDM and Other (idiopathic R diaphram paralized, Cataracts)
ED Past Surgical History: Bowel resection, Cardiac, Cholecystectomy, Orthopedic (r knee surg) and Tonsilectomy
Social History
Tobacco: Former smoker
Alcohol: Occasional
Drug: None
Personal:
Living: with family
Employment: Retired
Review of Systems
Review of Systems
All Other Systems: ROS reviewed and negative except as documented in HPI and ROS
Phy Exam
Physical Exam
Physical Exam:
GENERAL: Alert , in no apparent distress
EYE: Clear conjunctiva
NECK: Supple
ENT: o/p clr, mmm.
CARDIAC: Regular rate and rhythm .
LUNGS: Clear breath sounds bilaterally, no acute respiratory distress, no wheezes/rales/rhonchi
ABDOMEN: Soft, without focal tenderness, no r/g, no cvat
NEUROLOGICAL: Alert and oriented x 3
SKIN: Warm and dry, skin intact.
MUSCULOSKELETAL: well perfused.
PSYCH: Normal and appropriate interaction.
Scores
Heart Failure Risk
Heart Failure Risk Score: Not Applicable
Heart Score for Chest Pain Patients
STEMI patient?: Not applicable
Withdrawal Assessment of Alcohol
Withdrawal Assessment Completed?: Not applicable
Course
Orders/Labs/Results
Orders:
Orders
04/08/24 05:51
Basic Metabolic Panel Urgent
Complete Blood Count/With Diff Urgent
NT-proBNP Urgent
Comment: ADD ON
04/08/24 07:16
HYDROmorphone [Dilaudid] 0.5 mg IV NOW STA
CR Chest Portable - 1 View Urgent
Comment:
Reason For Exam: hx of multiple myeloma, change in mental status
Reason Study Needs to be Portable: Unable to Transport
04/08/24 07:21
Add On- LAB Urgent
Tests Added?: hepatic function panel
Serum Free Light Chains [[place]/Lambda FLC Quant] [S] Urgent
04/08/24 07:55
Urinalysis Reflex To Culture Urgent
Date Specimen was Collected: 04/08/24
Time Specimen was Collected: 07:53
Urine Microscopic Reflex Cult Urgent
Urine Culture Urgent
CALE Source: U
Specimen Description:
Date Specimen was Collected: 04/08/24
Time Specimen was Collected: 07:53
Abnormal Lab Results
04/08/24 04/08/24
05:51 07:55
RDW 17.1 H %
(11.5-14.5)
Abs Immat Gran (auto) 0.4 H 10^3/uL
(0-0.05)
Absolute Lymphs (auto) 0.2 L 10^3/uL
(1.2-3.4)
Immature Gran % 6.8 H %
(0-0.5)
Neutrophils % 80.3 H %
(42.2-75.2)
Lymphocytes % 4.3 L %
(20.5-51.1)
Sodium 130 L mmol/L
(135-145)
Chloride 96 L mmol/L
(98-107)
BUN 36 H mg/dl
(9-20)
Glucose 138 H mg/dl
(70-99)
Urine Ketones 1+ A
(Negative)
Urine Nitrite (Reflex) Positive A
(Negative)
Leukocyte Esterase Rfl Trace A
(Negative)
Urine Glucose 3+ A
(Negative)
Urine Albumin (Reflex) 1+ A
(Neg - Trace)
04/08/24 05:51
04/08/24 05:51
Vital Signs
Initial and Last Documented VS:
Initial Vital Signs
Temp Pulse Resp BP Pulse Ox
97.3 F 76 30 101/61 94
04/08/24 05:43 04/08/24 05:43 04/08/24 05:43 04/08/24 05:43 04/08/24 05:43
Last Documented Vital Signs
Temp Pulse Resp BP Pulse Ox
97.3 F 78 18 114/59 97
04/08/24 05:43 04/08/24 09:45 04/08/24 09:45 04/08/24 08:00 04/08/24 08:15
MDM/Problems Addressed
Differential Diagnosis Includes:
Medication interaction, less concern for acute infectious etiology, progression of cancerous processes
MDM/Problems Addressed:
83-year-old male with past medical history of multiple myeloma, bladder mass presenting to the ER for evaluation of change in mental status yesterday, daughter noting patient seems to be much improved presently. Patient still noting some pain but
seems to be right around his baseline. Daughter notes that patient was started on Seroquel yesterday morning and has been increasing the amount of morphine needed to control his pain to every 4 hours. My suspicion is that patient's brief change in
mental status was likely from the Seroquel or this increased use of morphine. Labs have been initiated on arrival and are largely unremarkable. There is mild hyponatremia this would be unlikely to cause the patient's symptoms. Patient was due to
get labs done today at home. I added on some of these labs to his current blood work to help facilitate you to outpatient management. Will connect with patient's cancer team to discuss further treatment options. Will try to discharge patient home
for continued outpatient care.
*Pulse Oximetry
Patient hypoxic: no
*Critical Care Note
Total Time (30-74mins, 75-104mins- exclusive of procedures): Not Applicable
Data Reviewed
Review of Other/Old Records Reveals: Labs, Records, Radiology Studies and Discharge Summary
Source: patient and family
Patient Management
Discussion with other providers: Modeling Analyst
Escalation/DeEscalation of care consider admission/obs:
Patients urinalysis shows nitrite positive and 1+ leukocytes. Patient is without urinary symptoms. It is certainly possible UTI potential cause for transient delirium. Given patient is afebrile, no leukocytosis and without urinary symptoms I
discussed with patient and daughter about prescribing Augmentin to cover for UTI however I would wait to start taking until culture returns or if patient develops fevers, urinary symptoms, flank pain. Patient and daughter happy with this plan. I did
also advise to hold seroquel. Patient also taking ambien which could also have contributed to symptoms. I notified patients cancer team at [facility] and they will follow up as well. They did not have any further recommendations.
ED Attending Note
-
Portions of this chart may have been created with voice recognition software.� Occasional wrong word or��sound alike� substitutions may have occurred due to the inherent limitations of voice recognition software.
Discharge Plan
Departure
Patient Disposition: Home (Routine Discharge)
Date of Disposition: 04/08/24
Time of Disposition: 09:52
Patient with high blood pressure during this ER visit?: No
Discharge Problem:
Medication side effects, UTI (urinary tract infection)
Instructions: Side effects from medicines
Prescriptions:
New
amoxicillin-pot clavulanate 875-125 mg tablet
1 tab PO BID 7 Days Qty: 14 0RF
No Action
omeprazole 40 MG capsule,delayed release(DR/EC)
40 mg PO DAILY
Jardiance 10 mg Tablet
10 mg PO DAILY
furosemide 40 mg Tablet
60 mg PO DAILY
docusate sodium 100 mg Capsule
100 mg PO BID Qty: 0 0RF
Eliquis 5 mg Tablet
10 mg PO BID Qty: 0 0RF
lidocaine 4 % Adhesive Patch,Medicated
1 patch topical DAILY Qty: 0 0RF
acetaminophen [Tylenol Extra Strength] 500 mg Tablet
1,000 mg PO TID Qty: 30 0RF
sennosides [Senna Laxative] 8.6 mg Tablet
17.2 mg PO HS Qty: 0 0RF
oxycodone 5 mg capsule
5 mg PO Q6H PRN (Reason: severe pain) Qty: 6 0RF
zolpidem [Ambien] 5 mg tablet
2.5 mg PO HS PRN (Reason: sleep) Qty: 2 0RF
dexamethasone 2 mg Tablet
2 mg PO DAILY Qty: 0 0RF
insulin glargine [Lantus Solostar U-100 Insulin] 100 unit/mL (3 mL) Insulin Pen
19 unit SC DAILY Qty: 0 0RF
Referrals:
Hilda Fry MD [Family Provider] -
Interventions
Interventions:
*General Assessment Last Done: 04/08/24 05:43
*Neglect/Abuse Screening Last Done: 04/08/24 05:43
ED- Fall Risk Assessment Last Done: 04/08/24 05:43
*ED COVID-19 Vaccine History Last Done: 04/08/24 05:43
Discharge Date and Time
Print Language: UPPER SORBIAN
[2024-04-08] MEDS: DILAUDID 0.5 MG IV (07:21)
[2024-04-08 08:00] VITALS: BP 114/59
[2024-04-08 08:40] LABS: % Basophils 0.9 % (0-2); % Eosinophils 1.6 % (0-6); % Immature Granulocytes 6.8 % (0-0.5); % Lymphocytes 4.3 % (20.5-51.1); % Monocytes 6.1 % (1.7-9.3); % Neutrophils 80.3 % (42.2-75.2); Absolute Basophils 0.1 10^3/uL (0-0.2); Absolute Eosinophils 0.1 10^3/uL (0-0.7); Absolute Immature Granulocytes 0.4 10^3/uL (0-0.05); Absolute Lymphocytes 0.2 10^3/uL (1.2-3.4); Absolute Monocytes 0.3 10^3/uL (0.1-0.6); Absolute Neutrophils 4.5 10^3/uL (1.4-6.5); Nucleated Red Blood Cells % 0 % (-)
[2024-04-08 08:51] LABS: Urine Albumin 1+ (Neg - Trace); Urine Bilirubin Negative (Negative); Urine Character Clear (Clear); Urine Color Yellow; Urine Glucose 3+ (Negative); Urine Ketone 1+ (Negative); Urine Leukocyte Trace (Negative); Urine Nitrite Positive (Negative); Urine Occult Blood Negative (Negative); Urine Specific Gravity 1.025 (<1.030); Urine Urobilinogen 1+ (Neg - 1+)
[2024-04-08 09:53] VITALS: BP 124/65
[2024-04-08 10:42] LABS: Urine Amorphous Seen; Urine Mucus Few
[2024-04-08 10:45] LABS: Urine Red Blood Cell 0-2 /HPF (0-2)
[2024-04-08 10:47] LABS: Urine Bacteria Moderate (Negative)
== END 2024-04-08 10:40 | disposition home or self-care (01) ==
LOC: EMR 05:37
PROVIDERS: Physician Assistant Medical; EMERGENCY PHYSICIAN Student in an Organized Health Care Education/Training Program; FAMILY PHYSICIAN Internal Medicine
DX: N39.0 Urinary tract infection, site not specified (principal); M54.50 Low back pain, unspecified; R41.82 Altered mental status, unspecified; T50.915A Adverse effect of multiple unspecified drugs, medicaments and biological substances, initial encounter; C90.00 Multiple myeloma not having achieved remission; N32.9 Bladder disorder, unspecified; E87.1 Hypo-osmolality and hyponatremia; I48.0 Paroxysmal atrial fibrillation; I11.0 Hypertensive heart disease with heart failure; I50.9 Heart failure, unspecified; E11.36 Type 2 diabetes mellitus with diabetic cataract; J45.909 Unspecified asthma, uncomplicated; Z87.891 Personal history of nicotine dependence; Z79.01 Long term (current) use of anticoagulants; Z90.49 Acquired absence of other specified parts of digestive tract; Z98.0 Intestinal bypass and anastomosis status; Z85.89 Personal history of malignant neoplasm of other organs and systems; Z86.718 Personal history of other venous thrombosis and embolism; Z86.711 Personal history of pulmonary embolism; Z91.048 Other nonmedicinal substance allergy status
CPT/HCPCS: 99284; 96374; 71045; 80048; 81003; 81015; 85025; 87086

== ENCOUNTER 2024-04-24 13:02 | Inpatient (IN) | payer OTHER, SELFPAY ==
[2024-04-24] VITALS (14 sets, daily range): BP systolic 108–158; BP diastolic 58–93; BMI 23.6; BMI 23.5
--- NOTE | 2024-04-24 07:53 | ED.GENMED ---
History of Present Illness
General
Chief Complaint: Change in Mental Status
Source: patient and family
Exam Limitations: clinical condition and altered mental status
Time Seen by Provider: 04/24/24 07:21
Nursing documentation reviewed up to this point in time: agreed with
History of Present Illness
History of Present Illness:
83 y/o M
h/o multiple myeloma
on therapy
CHF on lasix, O2 usually
last week didn't seem to need the O2
but then started having a decline 6 days ago, less active, not eating, fatigued, and hallucinating; seeing things, trying to pull hearing aids out that he doesn't have, etc
he really didn't get out of bed yesterday which was unusual
and his o2 trended down
the daughter is primary historian, says that they have been in contact with palliative doctor who thoguht pt could have UTI but he has n't been able to give samples that are uncontaminanted
pt has not had fever, cough, vomitnig, dirarhea, leg swelling
he is not on hospice
has had worsening back pain and has known spine tumors in lumbar spine which have been worse.
Past History
Past History
ED Past Medical History: Asthma (Mild allergic), Cancer (plasma cell cancer), CHF, HTN, NIDDM and Other (idiopathic R diaphram paralized, Cataracts)
ED Past Surgical History: Bowel resection, Cardiac, Cholecystectomy, Orthopedic (r knee surg) and Tonsilectomy
Social History
Tobacco: Former smoker
Alcohol: Occasional
Drug: None
Personal:
Living: with family
Employment: Retired
Review of Systems
Review of Systems
Allergies reviewed?: Yes
Other source history: family
All Other Systems: Not applicable
Phy Exam
Physical Exam
Physical Exam:
GENERAL: Alert , in no apparent distress
HEAD: NCAT
EYE: pupils equal and reactive, no nystagmus, no photophobia
NECK: Supple,full rom, nontender
ENT: Extremely dry mucous membranes
CARDIAC: Regular rate and rhythm . no edema
LUNGS: Clear breath sounds bilaterally, no acute respiratory distress, no wheezes/rales/rhonchi
ABDOMEN: Soft, without focal tenderness, no r/g, no cvat
NEUROLOGICAL: Alert and orientedx 2, cn intact, no facial asymmetry, 5/5 strength in UE/LE, but generally weak sensation intact, romberg neg, ambulates without assistance, neg pronator drift
SKIN: Warm and dry, skin intact.
MUSCULOSKELETAL: No edema, well perfused.
PSYCH: Normal and appropriate interaction.
Course
Orders/Labs/Results
Orders:
Orders
04/24/24 07:46
Electrocardiogram (*1) Urgent
Reason for Study: Shortness of Breath
EKG- Treatment ONCE
Straight cath- Treatment ONCE
0.9% Sodium Chloride 500 ml [Nss] 500 ml IV BOLUS
CR Chest - 2 Views Urgent
Comment:
Reason For Exam: hypoxia
04/24/24 08:04
COVID-19 Antigen Urgent
Source: Nasal Swab
Complete Blood Count/With Diff Urgent
04/24/24 08:25
Lactic Acid Urgent
04/24/24 09:14
Comprehensive Metabolic Panel Urgent
Magnesium Urgent
NT-proBNP Urgent
Troponin I Urgent
Urinalysis Reflex To Culture Urgent
Date Specimen was Collected: 04/24/24
Time Specimen was Collected: 09:13
04/24/24 09:58
CT Head W/o Iv Contrast Urgent
Comment:
Reason For Exam: hallucinations, ams, h/o MM
04/24/24 10:32
Morphine Sulfate 2 mg IV NOW STA
04/24/24 11:12
Case Management Consult ONCE
Case Management Consult: Discharge Planning
04/24/24 12:44
Admit/Transfer Patient As Directed
Co-Sign Provider:
Level of Care: Inpatient admission
Assign to:: Telemetry
Physician / Group: anthony
Diagnosis: acute hypoxia
Reason for Telemetry: Arrhythmia
Date to Stop Telemetry: 04/27/24
Time to Stop Telemetry: 11:00
Reason for Hospitalization: acute hypoxia
Expected length of stay greater than two midnights?: Yes
ELOS- Estimated Length of Stay in days: 3
I certify the patient meets the requirements for IP care: Yes
PRN Pain Medication Management As Directed
May give lesser potent ordered pain med per pt: Yes
preference::
Protocol:: Medication orders for pain may be administered in a
manner that supports deferring to patient preference
when the pt is:
- Requesting an ordered lesser potent pain medication.
Least to most potent pain medications are defined
as: acetaminophen < NSAID < tramadol < opioids
(morphine, oxycodone, hydromorphone).
- Requesting a lesser dose of the same medication IF
ORDERED.
- Requesting a less intrusive route of administration
if both routes are prescribed by the provider (PO <
IV).
04/24/24 12:46
Code Status As Directed
Resuscitation Status: Full Code
04/24/24 12:54
Consult Psychiatry [PSYCHIATRY CONSULT] Routine
Consulting Provider: Abebe Puente
Was physician already notified: Yes
ONCOLOGY CONSULT Routine
Consulting Provider: Ashok Arias
Was physician already notified: Yes
Brain Without Contrast MR [MR Brain Without Contrast] Routine
Comment:
Reason For Exam: hallucination
Recent pill cam endoscopy?: No
Hip, Right W/O MR [MR Right Hip W/o] Routine
Comment:
Reason For Exam: right hip pain
Recent pill cam endoscopy?: No
Lumbar Without Contrast MR [MR Lumbar Without Contrast] Routine
Comment:
Reason For Exam: pain
Recent pill cam endoscopy?: No
04/27/24 11:00
DC Protocol for Telemetry ONCE
Abnormal Lab Results
04/24/24 04/24/24
08:04 09:14
RBC 4.56 L 10^6/uL
(4.70-6.10)
RDW 18.5 H %
(11.5-14.5)
Abs Immat Gran (auto) 0.3 H 10^3/uL
(0-0.05)
Absolute Neuts (auto) 6.6 H 10^3/uL
(1.4-6.5)
Absolute Lymphs (auto) 0.4 L 10^3/uL
(1.2-3.4)
Immature Gran % 3.2 H %
(0-0.5)
Neutrophils % 80.3 H %
(42.2-75.2)
Lymphocytes % 5.4 L %
(20.5-51.1)
BUN 34 H mg/dl
(9-20)
Creatinine 0.6 L mg/dL
(0.7-1.3)
Calcium 8.1 L mg/dl
(8.4-10.2)
Total Protein 4.5 L g/dl
(6.3-8.2)
Albumin 2.5 L g/dl
(3.5-5.0)
Urine Ketones Trace A
(Negative)
Urine Glucose 3+ A
(Negative)
04/24/24 08:04
04/24/24 09:14
Vital Signs
Initial and Last Documented VS:
Initial Vital Signs
Temp Pulse Resp BP Pulse Ox
97.8 F 68 16 124/73 87
04/24/24 07:33 04/24/24 07:33 04/24/24 07:33 04/24/24 07:33 04/24/24 07:33
Last Documented Vital Signs
Temp Pulse Resp BP Pulse Ox
97.8 F 63 16 114/66 97
04/24/24 07:33 04/24/24 14:00 04/24/24 14:05 04/24/24 14:00 04/24/24 14:00
MDM/Problems Addressed
Differential Diagnosis Includes:
dehdyration, hyponatremia, uti, pneumonia, covid, less likely PE
MDM/Problems Addressed:
mirtha lyle 83 y/o M with h/o multiple myeloma with lesions in his Lumbar spine, on pain management/palliative care and just completed some chemo but not hospice; chf on lasix; o2 prn
here with 6 days inc confusion/hallucinations, agitation, not eating; and hypoxia - pt had been off his O2 because he wasn't needing it with normal pulse ox's until today when it was lower
in th epast 2 days now not eating/not drinking; pt has 24 hour care and is agitated more than usual
today was hypoxic on RA 80s and stable on 3L
afebrile; very dry mucus membranes
chronci back pain, no focal weakness
labs are relatively stable, some dehydration
i placed case management consult, family concerned abou this safety at home; ct head neg;
*Critical Care Note
Total Time (30-74mins, 75-104mins- exclusive of procedures): Not Applicable
ED Attending Note
-
Portions of this chart may have been created with voice recognition software.� Occasional wrong word or��sound alike� substitutions may have occurred due to the inherent limitations of voice recognition software.
Discharge Plan
Departure
Patient Disposition: Admit
Date of Disposition: 04/24/24
Time of Disposition: 11:07
Admit to: Med/Surg
Presentation/result/management discussed w/ accepting MD/DO: Hospitalist
Condition: Fair
Covid-19: Not Applicable
Discharge Problem:
Altered mental status, Dehydration
Interventions
Interventions:
*Risk Screen - Suicide Last Done: 04/24/24 07:38
*General Assessment Last Done: 04/24/24 07:38
*Neglect/Abuse Screening Last Done: 04/24/24 07:38
*ED COVID-19 Vaccine History Last Done: 04/24/24 07:38
ED- Neurological Assessment Last Done: 04/24/24 07:39
ED Swallowing Screen Last Done: 04/24/24 08:20
[2024-04-24 08:21] LABS: % Basophils 1.7 % (0-2); % Eosinophils 1.6 % (0-6); % Immature Granulocytes 3.2 % (0-0.5); % Lymphocytes 5.4 % (20.5-51.1); % Monocytes 7.8 % (1.7-9.3); % Neutrophils 80.3 % (42.2-75.2); Absolute Basophils 0.1 10^3/uL (0-0.2); Absolute Eosinophils 0.1 10^3/uL (0-0.7); Absolute Immature Granulocytes 0.3 10^3/uL (0-0.05); Absolute Lymphocytes 0.4 10^3/uL (1.2-3.4); Absolute Monocytes 0.6 10^3/uL (0.1-0.6); Absolute Neutrophils 6.6 10^3/uL (1.4-6.5); Hematocrit 40.9 % (39.0-52.0); Hemoglobin 13.6 g/dL (13.0-18.0); Mean Corp Hgb Conc. 33.3 g/dL (33.0-37.0); Mean Corpuscular Hgb 29.8 pg (27.0-31.0); Mean Corpuscular Volume 89.7 fL (80.0-94.0); Mean Platelet Volume 9.2 fL (7.4-10.4); Nucleated Red Blood Cells % 0 % (-); Platelet Count 255 10^3/uL (130-400); Red Blood Cell Count 4.56 10^6/uL (4.70-6.10); Red Cell Dist. Width 18.5 % (11.5-14.5); White Blood Cell Count 8.2 10^3/uL (4.8-10.8)
[2024-04-24] MEDS: NSS 500 IV (08:29)
[2024-04-24 08:34] LABS: COVID-19 Antigen Negative (Negative)
[2024-04-24 09:47] LABS: Lactic Acid 0.9 mmol/L (0.7-2.0)
[2024-04-24 09:58] LABS: ALT (SGPT) < 10 U/L (0-50); AST (SGOT) 20 U/L (17-59); Albumin 2.5 g/dl (3.5-5.0); Alkaline Phosphatase 101 U/L (38-126); Blood Urea Nitrogen 34 mg/dl (9-20); Calcium 8.1 mg/dl (8.4-10.2); Carbon Dioxide 24 mmol/L (22-30); Chloride 102 mmol/L (98-107); Estimated Creatinine Clearance 95 ml/min; Glucose 97 mg/dl (70-99); Magnesium 2.1 mg/dl (1.6-2.3); Potassium 3.6 mmol/L (3.5-5.1); Sodium 135 mmol/L (135-145); Total Bilirubin 0.4 mg/dl (0.2-1.3); Total Protein 4.5 g/dl (6.3-8.2); eGFR > 60.00
[2024-04-24 10:08] LABS: NT-proBNP 398 pg/ml; Troponin I 0.013 ng/ml
[2024-04-24 10:30] LABS: Urine Albumin Negative (Neg - Trace); Urine Bilirubin Negative (Negative); Urine Character Clear (Clear); Urine Color Yellow; Urine Glucose 3+ (Negative); Urine Ketone Trace (Negative); Urine Leukocyte Negative (Negative); Urine Nitrite Negative (Negative); Urine Occult Blood Negative (Negative); Urine Specific Gravity 1.025 (<1.030); Urine Urobilinogen Negative (Neg - 1+)
[2024-04-24] MEDS: MORPHINE SULFATE 2 MG IV (10:50)
--- NOTE | 2024-04-24 11:54 | CM ---
CM was consulted to discuss discharge planning. CM met with patient and daughter in room. CM confirmed that patient lives with his , who recently was diagnosed with dementia. Patient has 24 hour paid caregivers through [facility].
Patient's daughter is POA. Daughter reports increased delirium and agitation at home. Daughter reports caregivers are having a difficult time managing patient. Patient's daughter stated that they are pending and MRI to evaluate pain in patient's
lower back, but patient was too lethargic to go to the appointment. Patient is also followed by Dr. Farah.
Patient is followed closely by Palliative Care. Daughter reports despite interventions and medical changes at home, patient's pain is still not under control.
Patient's daughter is agreeable to admission and further work up regarding patient's pain. Daughter is aware that patient may need hospice and would prefer patient remain home if possible during that time.
JANET updated ED PA. CM requested an inpatient Palliative Care Consult.
--- NOTE | 2024-04-24 12:01 | HPS.HSE ---
Addendum entered and electronically signed by Chandni Harris MD 04/24/24 21:10:
I saw and examined the patient.
The FREIGHT CAR INSPECTOR or PA's note was reviewed and I agree with the note.
Comment:
83M on Palliative Care h/o multiple myeloma on immunotherapy, HFpEF, HTN, HLD, DM, afib Eliquis, gout chronic O2 p/w generalized weakness, fatigue, poor appetite past week with worsening mid low back to right hip pain. Intermittent confusion
hallucinations noted by daughter. AOx3 at baseline. Denies fever chills nausea vomiting diarrhea constipation chest pain palpitations abd pain.
Physical Exam
General: No acute distress, appears comfortable
HEENT: NormoCephalic, Moist mucous membranes and Atraumatic
Respiratory: Clear
Cardiac: S1/S2 and Regular Rhythm; No Murmur or Rub
GI: Soft, Non Tender, Non Distended and Normal Bowel Sounds; No Organomegaly
Musculoskeletal: No Clubbing, No Cyanosis and No Edema
Skin: No Rash
Neuro: AO x 3 and Nonfocal/grossly intact
Psych: Calm
#intermittent confusion/hallucination possibly d/t pain meds vs pain vs both
#acute on chronic hypoxic respiratory failure
# Lower back, right hip pain
#generalized weakness
#hxt of DVT/PE
#Multiple Myeloma
#Hypertension
#DM-II
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
#History of Paroxysmal A-Fib s/p PVI Ablation x 2
cont home Eliquis
CXR CT head appreciated no acute abn's
check Brain Lumbar Rt Hip MRI
pain control
wean O2 supplementation as tolerated
PT/OT eval
sliding scale, glycemic control
Oncology eval
Psych eval
Palliative care consult
Limited DNR (no intubation but ok with CPR) per patient and patient's daughter [place]�
Original Note:
Family Physician
-
Family Physician: Hilda Fry
Chief Complaint
-
poor appetite
delirium
fatigue,weakness
History of Present Illness
83 y/o M h/o multiple myeloma on immunotherapy,CHF on Lasix, O2 usually,HTN, HLD, type 2 Dm, atrial fib,GOUT presented to us with generalized weakness, fatigue and poor appetite for pat 5-6 days. patient with worsening mid low back to right hip
pain. patient was also noted very delirious, at times hallucinating. he was started on fentanyl patch, but he had the same confusion before this. yesterday he did not get out of bed all day. he is been using oxygen more than usual.his oxygen
saturation was on low 70's and 80's. denied MATHIAS, dizzy or syncopal episode. denied fever, chills, chest pain, sob. denied abdominal pain,n,nv,d. denied dysuria or hematuria.
patient was scheduled for MRI this morning, but came here instead due to worsening right hip pain.
Medical History
Past Medical History
Past Medical History: Reports Other
Additional Past Medical History:
HTN
HLd
type 2 DM
atrial fib
GOUT
GI bleed
HTn
iron def anemia
macular degeneration
bladder carcinoma
hiatal hernia
chf
Past Surgical History: Reports Other
Additional Past Surgical History:
loop recorder
tonsillectomy
cardioversion
cholecystectomy
hemorhhoid surgery
Social History
Tobacco: Former Smoker
Alcohol: Occasional
Drug: None
Family History
Family History: Not pertinent
Allergies / Home Medications
Allergies reflects when Allergies were last updated in [facility].
Home Medications with original date entered in [facility]
Allergy/Medication List:
Allergies
Allergy/AdvReac Type Severity Reaction Status Date / Time
No Known Drug Allergies Allergy Unknown Verified 04/08/24 05:42
pollens Allergy sneezing, Uncoded 04/08/24 05:42
postnasal
drip
Home Medications
empagliflozin 10 mg tablet (Jardiance) 10 mg PO DAILY Diabetes/Heart failure 12/27/23
furosemide 40 mg tablet 40 mg PO DAILY Fluid Retention/Swelling 12/28/23
acetaminophen 500 mg tablet (Tylenol Extra Strength) 1,000 mg (2 x 500 mg) PO TID Pain #30 tabs 02/15/24
acyclovir 400 mg tablet 400 mg PO BID 04/24/24
apixaban 5 mg tablet (Eliquis) 5 mg PO BID Blood clot prevention/tx 04/24/24
daratumumab 20 mg/mL intravenous solution (Darzalex) 20 mg IV WE 04/24/24
dexamethasone 2 mg tablet 4 mg PO THFR Anti-Inflammatory 04/24/24
dexamethasone 20 mg tablet 20 mg PO WE 04/24/24
diphenhydramine HCl 50 mg capsule 50 mg PO WE 04/24/24
famotidine 20 mg tablet (Pepcid) 40 mg PO WE 04/24/24
fentanyl 25 mcg/hr transdermal patch 1 patch transdermal Q72H 04/24/24
insulin glargine 100 unit/mL (3 mL) subcutaneous pen (Lantus Solostar U-100 Insulin) 15 unit SC DAILY Diabetes 04/24/24
insulin lispro 100 unit/mL subcutaneous pen (Humalog KwikPen (U-100) Insulin) 0 sliding scale dose SC AC PRN blood sugar 04/24/24
montelukast 10 mg tablet (Singulair) 10 mg PO TUWETH 04/24/24
morphine concentrate 100 mg/5 mL (20 mg/mL) oral solution 10 mg PO Q4 04/24/24
omeprazole 40 mg capsule,delayed release 40 mg PO DAILY 04/24/24
pediatric multivitamin no.76 (Flintstones Complete chewable tablet) 1 tab PO QPM 04/24/24
polyethylene glycol 3350 17 gram oral powder packet (Miralax) 17 g PO DAILY 04/24/24
potassium chloride 20 mEq tablet,extended release 20 meq PO DAILY 04/24/24
quetiapine 25 mg tablet (Seroquel) 12.5 mg PO TID 04/24/24
vit C 250 mg-vit E 90 mg-zinc 40 mg-copper 1 th-[id number]-[id number] capsule (PreserVision AREDS-2) 1 tab PO BID 04/24/24
Review of Systems
-
Constitutional: Reports No Symptoms
EENT: Reports No Symptoms
Respiratory: Reports No Symptoms
Cardiac: Reports No Symptoms
Abdomen/GI: Reports No Symptoms
: Reports No Symptoms
Musculoskeletal: Reports Other (right hip, low mid back pain)
Skin: Reports No Symptoms
Neurological: Reports No Symptoms
Endocrine: Reports No Symptoms
Hematologic/Lymphatic: Reports No Symptoms
Psych: Reports No Symptoms
Physical Exam
Vital Signs
Vital Signs
Temp Pulse Resp BP Pulse Ox
97.8 F 67 16 110/58 98
04/24/24 07:33 04/24/24 08:00 04/24/24 10:00 04/24/24 08:00 04/24/24 08:00
Physical Exam
General: Well Developed, Well Nourished and No Apparent Distress
HEENT: NormoCephalic, Moist mucous membranes and Atraumatic
Respiratory: Clear
Cardiac: S1/S2 and Regular Rhythm; No Murmur or Rub
GI: Soft, Non Tender, Non Distended and Normal Bowel Sounds; No Organomegaly
Rectal: Deferred by Provider
Musculoskeletal: No Clubbing, No Cyanosis and No Edema
Skin: No Rash
Neuro: AO x 3 and Nonfocal/grossly intact
Psych: Calm
Laboratory Results
-
04/24/24 08:04
04/24/24 09:14
Laboratory Results
Lactic Acid 0.9 mmol/L (0.7-2.0) 04/24/24 08:25
Total Bilirubin 0.4 mg/dl (0.2-1.3) 04/24/24 09:14
AST 20 U/L (17-59) 04/24/24 09:14
ALT < 10 U/L (0-50) 04/24/24 09:14
Alkaline Phosphatase 101 U/L (38-126) 04/24/24 09:14
Troponin I 0.013 ng/ml 04/24/24 09:14
Lipase Cancelled 04/24/24 08:25
Data Reviewed
-
Diagnostic Radiology: Report Reviewed by me
CT Scan: Image Personally Visualized and interpreted
Lab Data: Labs Reviewed by me
Impression/Plan
-
#confusion/hallucination likely from pain vs pain meds
-head CT with no acute intracranial abnormality
-At present mentation stable
-UA negative
-will obtain MRI of head
-psych consulted
#acute on chronic hypoxic respiratory failure likely due to pain versus pain meds
-COVID negative
-chest x ray with No acute pulmonary process identified. Unchanged elevation right hemidiaphragm.
-Continue supplemental oxygen to keep sat greater than 92
-Wean as tolerated
-BNP 398
# Lower back pain, right hip pain
-Patient scheduled for MRI today
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 This extends into the sacral ala on the right side as well as into the right L5 pedicle. This is similar to the previous MRI.Evidence for widespread osseous malignancy elsewhere. This may be
secondary to myeloma or metastatic urinary bladder cancer. These findings are similar to the lumbar spine MRI dated 11/29/2023.70% compression fracture of L1 vertebral body. This is new compared with previous MRI. This is probably a benign
insufficiency fracture, as no L1 lesion was present on the MRI from November,. Retropulsion related to the fracture results in mild flattening of the thecal sac
Multilevel foraminal stenosis secondary to degenerative findings in the lumbar spine. There is also severe spinal canal stenosis at L4/5 secondary to degenerative findings (02/13/2024)
-will obtain lumbar and hip MRI
#generalized weakness likely from metastatic disease
-PT/OT consult
#hxt of DVT/PE
-on eliquis
#plasma Cell Myeloma
- Patient with back pain and hip pain secondary to L5 lesion (with other / small lesions also noted at L3, sacrum, iliac).
-patient is on immunotherapy
- Opiate dependent for pain control
- acyclovir continued
-on fentanyl patch
-follow Dr. Farah as outpatient
-oncology consulted
#Benign Hypertension
- on lasix
#DM-II
- On Jardiance
-continue lantus 7 units at hs
- sliding scale
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
#History of Paroxysmal A-Fib s/p PVI Ablation x 2
- No recurrent A-Fib noted. LINQ in place.
- Not maintained on chronic OAC [facility].
#Possible portal vein thrombosis-Per MRI in the past-was not on anticoagulation [facility]
#History of peptic ulcer disease/hiatal hernia-PPI
#Insomnia-continue Seroquel
#Atherosclerosis ,Mild to moderate calcified plaque within the left SFA
Pt doesn't want to take chol meds as he is afraid of side effects
#Diverticulosis
#H/O Bladder Cancer
#Gout
#Ex-smoker
#DVT Prophylaxis: Lovenox
#Code Status: Full
[2024-04-24] MEDS: MORPHINE ORAL SOLUTION 10 MG PO ×2 (16:10→23:02)
[2024-04-24] MEDS: SEROQUEL 12.5 MG PO (17:36)
[2024-04-24] MEDS: TYLENOL 1000 MG PO (17:36)
[2024-04-24] MEDS: DURAGESIC 25 MCG/HR PATCH 1 PATCH TRANSDERM (17:36)
[2024-04-24] MEDS: SINGULAIR 10 MG PO (17:37)
[2024-04-24] MEDS: NOVOLOG FLEXPEN-LOW RESISTANCE SC (17:42)
[2024-04-24 17:43] LABS: Glucose - Point of Care 122 mg/dl (70-99)
--- NOTE | 2024-04-24 17:44 | PTCARENOTE ---
pt admitted to 2N from ED at 1653. pt aaox2. thought was 2011. pt on 3L of O2 when coming up to floor and was dyspneic at rest and exertion. pt bumped to 4L and is sitting at 94%. hx of copd and belly breathes at baseline per patient himself.
labored respirations. multiple stage 3 on buttocks and DTI. scattered scabs and bruises on LE. Wound assessment cosigned per protocol. fentanyl patch placed with witness on Left scapula.
--- NOTE | 2024-04-24 20:16 | PTCARENOTE ---
Addendum entered by Rob Loja RN 04/25/24 01:34:
Pt has been refusing tx. pt continues to take O2 off and refuses it place back on. Daughter at bedside and will try to convince pt to place O2 back on.
Addendum entered by Rob Loja RN 04/24/24 23:57:
Pt removed IV access. pt wanted to go home and daughter at bedside. Daughter decided to wait till AM to determine if MRI will be possible based on his father condition. Pt AAOX1 periods of agitation and restlessness. Will continue w/ tx plan.
Original Note:
Pt became agitated, anxious, restless and verbally aggressive. Pt wanted to leave. AAOx1. Daughter was informed of his condition and will come back to see him. At this time pt refused all his med. Bed alarm in place and medsitter for safety.
[2024-04-24] MEDS: ZOVIRAX PO ×2 (20:57→21:24)
[2024-04-24] MEDS: ELIQUIS PO ×2 (20:57→21:25)
[2024-04-24] MEDS: SEROQUEL PO ×2 (20:58→21:24)
[2024-04-24] MEDS: TYLENOL PO ×2 (20:58→21:24)
--- NOTE | 2024-04-24 21:33 | W.PN.UPDATE ---
Update Note
Progress Note Update
MRI postponed until 04/25
Daughter states will need premedication for pt to keep calm for MRI. Will add ativan x1 prior to MRI
[2024-04-24 21:39] LABS: Glucose - Point of Care 167 mg/dl (70-99)
[2024-04-24] MEDS: ELIQUIS 5 MG PO (22:08)
--- NOTE | 2024-04-24 23:19 | VATNOTE ---
PT REMOVED IV ACCESS DOCUMENTED. NO CURRENT NEED FOR A RS. PT AND DAUGHTER WILL DECIDE IN AM IF MRI TO BE DONE NECESSITATING AN IV ACCESS AT THAT TIME.PLAN OF CARE DISCUSSED WITH PCN.
[2024-04-24] MEDS: MIRALAX 17 GRAMS PO (23:43)
[2024-04-25] MEDS: MORPHINE ORAL SOLUTION 10 MG PO ×5 (02:09→20:04)
[2024-04-25 02:57] VITALS: BP 125/73
[2024-04-25] MEDS: TYLENOL 1000 MG PO ×3 (06:27→21:03)
[2024-04-25 07:35] VITALS: BP 123/76
[2024-04-25 07:59] LABS: Glucose - Point of Care 79 mg/dl (70-99)
[2024-04-25] MEDS: NOVOLOG FLEXPEN-LOW RESISTANCE SC ×3 (08:24→17:14)
[2024-04-25] MEDS: SEROQUEL 12.5 MG PO ×2 (09:30→21:02)
[2024-04-25] MEDS: ZOVIRAX 400 MG PO ×2 (09:33→20:03)
[2024-04-25] MEDS: ELIQUIS 5 MG PO ×2 (09:33→20:03)
[2024-04-25] MEDS: PROTONIX 40 MG PO (09:33)
[2024-04-25] MEDS: LASIX 40 MG PO (09:33)
[2024-04-25] MEDS: JARDIANCE 10 MG PO (09:33)
[2024-04-25] MEDS: KCL 20 MEQ PO (09:33)
[2024-04-25] MEDS: MIRALAX PO (09:34)
[2024-04-25] MEDS: LANTUS 0.07 UNITS SC (09:36)
--- NOTE | 2024-04-25 10:45 | CON.ONC ---
Impression
Impression
Intractable paroxysms of pain
No clear evidence of multiple myeloma progression
Generalized weakness and deconditioning
Hypertension
Diabetes mellitus
Paralyzed right hemidiaphragm chronic
PAF
Plan
Plan
An attempt to better define the pathology and to ascertain whether there may be nonsecretory progressive disease recommended MRI lumbar spine
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
Pain exacerbation may be related to radiculopathy amenable to either steroid injection or subtle fracture
Patient will likely need a degree of sedation would use Ativan
Patient History
History of Present Illness
83M on Palliative Care h/o multiple myeloma on immunotherapy with daratumumab/pulsed dexamethasone, HFpEF, HTN, HLD, DM, afib Eliquis, gout chronic O2 p/w generalized weakness, fatigue, poor appetite past week with worsening mid low back to right
hip pain. He was previously receiving Revlimid which he tolerated poorly. He has had titration of opiate therapy and intermittent confusion. His pain paroxysms wax and wane and are not associated with weightbearing or positional change. AOx3 at
baseline. Denies fever chills nausea vomiting diarrhea constipation chest pain palpitations abd pain.
Past-Medical/Surgical History
Past-Medical/Surgical History
PMHx:
History of bladder cancer, currently LIBAN
Diabetes
Atrial fibrillation not on anticoagulation, has a Linq monitor
Hyperlipidemia
Macular degeneration
CHF
Hiatal hernia
HTN
Gout
Hx GIB
PSHx:
Knee surgery
Cholecystectomy
Tonsillectomy
TURBT
Ophthalmologic surgery
Social:
Former smoker, quit in 1973
Than 1 alcoholic beverage per week
Patient Medication
�Medication �Instructions �Recorded �Confirmed �Last Taken �Type
empagliflozin 10 mg tablet 10 mg PO DAILY Diabetes/Heart 12/27/23 04/24/24 04/24/24 History
(Jardiance) failure
furosemide 40 mg tablet 40 mg PO DAILY Fluid 12/28/23 04/24/24 04/23/24 History
Retention/Swelling
acetaminophen 500 mg tablet 1,000 mg (2 x 500 mg) PO TID Pain 02/15/24 04/24/24 04/24/24 Rx
(Tylenol Extra Strength) #30 tabs
acyclovir 400 mg tablet 400 mg PO BID Prophylaxis 04/24/24 04/24/24 04/24/24 History
apixaban 5 mg tablet (Eliquis) 5 mg PO BID Blood clot 04/24/24 04/24/24 04/24/24 History
prevention/tx
daratumumab 20 mg/mL intravenous 20 mg IV WE Antineoplastic 04/24/24 04/24/24 04/17/24 History
solution (Darzalex)
dexamethasone 2 mg tablet 4 mg PO THFR Anti-Inflammatory 04/24/24 04/24/24 04/19/24 History
dexamethasone 20 mg tablet 20 mg PO WE 04/24/24 04/24/24 04/17/24 History
diphenhydramine HCl 50 mg capsule 50 mg PO WE Allergies 04/24/24 04/24/24 04/17/24 History
famotidine 20 mg tablet (Pepcid) 40 mg PO WE Gastrointestinal Issue 04/24/24 04/24/24 04/17/24 History
fentanyl 25 mcg/hr transdermal 1 patch transdermal Q72H Pain 04/24/24 04/24/24 04/24/24 History
patch
insulin glargine 100 unit/mL (3 15 unit SC DAILY Diabetes 04/24/24 04/24/24 04/23/24 History
mL) subcutaneous pen (Lantus
Solostar U-100 Insulin)
insulin lispro 100 unit/mL 0 sliding scale dose SC AC PRN 04/24/24 04/24/24 Unknown History
subcutaneous pen (Humalog KwikPen blood sugar
(U-100) Insulin)
montelukast 10 mg tablet 10 mg PO TUWETH ASTHMA 04/24/24 04/24/24 04/23/24 History
(Singulair)
morphine concentrate 100 mg/5 mL 10 mg PO Q4HPRN PRN 04/24/24 04/24/24 04/24/24 History
(20 mg/mL) oral solution moderate-severe pain
omeprazole 40 mg capsule,delayed 40 mg PO DAILY Gastrointestinal 04/24/24 04/24/24 04/24/24 History
release Issue
pediatric multivitamin no.76 1 tab PO QPM Supplement 04/24/24 04/24/24 04/23/24 History
(Flintstones Complete chewable
tablet)
polyethylene glycol 3350 17 gram 17 g PO DAILY Constipation 04/24/24 04/24/24 Unknown History
oral powder packet (Miralax)
potassium chloride 20 mEq 20 meq PO DAILY Supplement 04/24/24 04/24/24 04/23/24 History
tablet,extended release
quetiapine 25 mg tablet (Seroquel) 12.5 mg PO TID Mental 04/24/24 04/24/24 04/24/24 History
Health/Anxiety
vit C 250 mg-vit E 90 mg-zinc 40 1 tab PO BID Supplement 04/24/24 04/24/24 04/24/24 History
mg-copper 1 [id number]
capsule (PreserVision AREDS-2)
Active Medications
Generic Name Dose Route Start Last Admin
Trade Name Freq PRN Reason Stop Dose Admin
Acetaminophen 1,000 mg 04/24/24 16:53 04/25/24 06:27
Acetaminophen 500 Mg Tablet PO 05/22/24 16:52 1,000 mg
TID LAURA Administration
Acyclovir Sodium 400 mg 04/24/24 20:00 04/25/24 09:33
Acyclovir Sodium 200 Mg Capsule PO 05/04/24 19:59 400 mg
BID LAURA Administration
Apixaban 5 mg 04/24/24 20:00 04/25/24 09:33
Apixaban (Eliquis) 5 Mg Tablet PO 05/22/24 19:59 5 mg
BID LAURA Administration
Bisacodyl 10 mg 04/24/24 16:53
Bisacodyl 10 Mg Rectal Suppository RECTAL 05/22/24 16:52
[id number] PRN
constipation
Dextrose 12.5 grams 04/24/24 16:53
Dextrose 50% (0.5 Grams/Ml) 50 Ml Syringe IV 05/22/24 16:52
[id number] PRN
hypoglycemia
Protocol
Empagliflozin 10 mg 04/25/24 08:00 04/25/24 09:33
Empagliflozin (Jardiance) 10 Mg Tablet PO 05/23/24 07:59 10 mg
DAILY LAURA Administration
Fentanyl 1 patch 04/24/24 18:00 04/24/24 17:36
Fentanyl 25 Mcg/Hr Patch TRANSDERM 05/08/24 17:59 1 patch
Q72H LAURA Administration
Furosemide 40 mg 04/25/24 08:00 04/25/24 09:33
Furosemide 40 Mg Tablet PO 05/23/24 07:59 40 mg
DAILY LAURA Administration
Glucagon 1 mg 04/24/24 16:53
Glucagon 1 Mg Vial IM 05/22/24 16:52
PRN PRN
hypoglycemia
Protocol
Insulin Glargine 7 units/ 0.07 mls @ 0 mls/hr 04/25/24 08:00 04/25/24 09:36
Device SC 05/23/24 07:59 0.07 mls
DAILY LAURA Administration
As Directed
Insulin Aspart 0 units 04/24/24 16:53 04/25/24 08:24
Insulin Aspart Low Resistance 300 Units/3 Ml Pen.Injctr SC 05/22/24 16:52 Not Given
AC LAURA
Protocol
Montelukast Sodium 10 mg 04/24/24 18:00 04/24/24 17:37
Montelukast Sodium 10 Mg Tablet PO 05/22/24 17:59 10 mg
[id number] LAURA Administration
Morphine Sulfate 10 mg 04/24/24 16:00 04/25/24 09:37
Morphine Oral Solution (10 Mg/5 Ml) Cup PO 05/08/24 15:59 10 mg
Q4HPRN PRN Administration
moderate-severe pain
Pantoprazole Sodium 40 mg 04/25/24 08:00 04/25/24 09:33
Pantoprazole 40 Mg Delayed Release Tablet PO 05/23/24 07:59 40 mg
DAILY LAURA Administration
Patch Removal 0 patch 04/24/24 18:00 04/24/24 19:16
Remove Fentanyl Patch REMOVE 05/08/24 17:59 1 patch
Q72H LAURA Administration
Polyethylene Glycol 17 grams 04/25/24 08:00 04/25/24 09:34
Polyethylene Glycol Powder 17 Grams Packet PO 05/23/24 07:59 Not Given
DAILY LAURA
Polyethylene Glycol 17 grams 04/24/24 16:53 04/24/24 23:43
Polyethylene Glycol Powder 17 Grams Packet PO 05/22/24 16:52 17 grams
DAILYPRN PRN Administration
constipation
Potassium Chloride 20 meq 04/25/24 08:00 04/25/24 09:33
Potassium Chloride 20 Meq Extended Release Tablet PO 05/23/24 07:59 20 meq
DAILY LAURA Administration
Quetiapine Fumarate 12.5 mg 04/24/24 16:53 04/25/24 09:30
Quetiapine 25 Mg Tablet PO 05/22/24 16:52 12.5 mg
TID LAURA Administration
Senna/Docusate Sodium 1 tablet 04/24/24 16:53
Docusate W/Senna (Natalie-Colace) Tablet PO 05/22/24 16:52
BIDPRN PRN
constipation
Sodium Chloride 0 flush 04/24/24 18:00
Sodium Chloride 0.9% (Flush) Syringe IV 05/22/24 17:59
PER PROTOCOL LAURA
Review of Systems
-
12 point review of systems without a significant plaints of those noted in the HPI
Physical Exam
-
Physical Exam
General: No acute distress, appears comfortable
HEENT: NormoCephalic, Moist mucous membranes and Atraumatic
Respiratory: Clear
Cardiac: S1/S2 and Regular Rhythm; No Murmur or Rub
GI: Soft, Non Tender, Non Distended and Normal Bowel Sounds; No Organomegaly
Musculoskeletal: No Clubbing, No Cyanosis and No Edema
Skin: No Rash
Neuro: AO x 3 and Nonfocal/grossly intact
Psych: Calm
Labs
Lab Results
WBC 8.2 10^3/uL (4.8-10.8) 04/24/24 08:04
RBC 4.56 10^6/uL (4.70-6.10) L 04/24/24 08:04
Hgb 13.6 g/dL (13.0-18.0) 04/24/24 08:04
Hct 40.9 % (39.0-52.0) 04/24/24 08:04
MCV 89.7 fL (80.0-94.0) 04/24/24 08:04
MCH 29.8 pg (27.0-31.0) 04/24/24 08:04
MCHC 33.3 g/dL (33.0-37.0) 04/24/24 08:04
RDW 18.5 % (11.5-14.5) H 04/24/24 08:04
Plt Count 255 10^3/uL (130-400) 04/24/24 08:04
MPV 9.2 fL (7.4-10.4) 04/24/24 08:04
Abs Immat Gran (auto) 0.3 10^3/uL (0-0.05) H 04/24/24 08:04
Absolute Neuts (auto) 6.6 10^3/uL (1.4-6.5) H 04/24/24 08:04
Absolute Lymphs (auto) 0.4 10^3/uL (1.2-3.4) L 04/24/24 08:04
Absolute Monos (auto) 0.6 10^3/uL (0.1-0.6) 04/24/24 08:04
Absolute Eos (auto) 0.1 10^3/uL (0-0.7) 04/24/24 08:04
Absolute Basos (auto) 0.1 10^3/uL (0-0.2) 04/24/24 08:04
Immature Gran % 3.2 % (0-0.5) H 04/24/24 08:04
Neutrophils % 80.3 % (42.2-75.2) H 04/24/24 08:04
Lymphocytes % 5.4 % (20.5-51.1) L 04/24/24 08:04
Monocytes % 7.8 % (1.7-9.3) 04/24/24 08:04
Eosinophils % 1.6 % (0-6) 04/24/24 08:04
Basophils % 1.7 % (0-2) 04/24/24 08:04
Creatinine 0.6 mg/dL (0.7-1.3) L 04/24/24 09:14
Vital Signs
Vital Signs
Temp Pulse Resp BP Pulse Ox
97.5 F 90 18 123/76 95
04/25/24 07:35 04/25/24 07:35 04/25/24 07:35 04/25/24 09:33 04/25/24 07:35
--- NOTE | 2024-04-25 11:09 | W.CON.PAL ---
Addendum entered and electronically signed by Estrella Santos MD 04/25/24 11:35:
unable to complete MMJ certification due to pending certification from another physician.
Original Note:
Consultation
-
Date/Time Consultation Requested: 04/24/24 1328
Date/Time Consultation Performed: 04/25/2024
Requesting Provider: [place]
Performing Provider: Estrella Santos
Reason for Consult: Goals of Care Discussion
Primary Diagnosis: Multiple myeloma
Consult Requested By: Patient's Family
Reason for Admission
Illness Course/HPI
HPI: Pineda is a 83 y/o male known to the outpatient palliative senior living program, with history of multiple mylemoa with known hx of lesions at L3, L5, R iliac bone s/p recent radiation (right hip). Over the past week has been having increasing
episodes of agitation/anxiety, as well as worsening pain. He awas hospitalized on 04/24 for delerium and weakness. Initial workup - labs, ct head were reviewed, without significant findings at this time. At the time of my encounter, patient is calm
and able to converse with me. He reports that he is to have an MRI today and is not looking forward to it, but is willing to go through with the testing as he would like to know why he is having increased pain and would be open to further radiation
or other procedure if needed. He reports his pain is severe even at rest, and also admits to symptoms of anxiety. Daughter Karine at bedside as well.
we discussed that his agitation symptoms may be due to cancer progression, pain progression (pain and pain medications can both cause agitation).
Pain: Currently on MSIR 7.5mg PRN and Fentanyl Patch 25mcg q 72 hours. Prior trial of gabapentin caused deleirum. Was previously on steroids, but they were weaned several months ago as they were thought to be contributing to weakness. At this time,
plan is to see what MRI shows. If negative for new findings, discussed rotating morphine to another opioid. If bony met, could consider steroid as long as anxiety/agitation were stable.
discussed MMJ certification (completed) for pain/anxiety/agitation.
Anxiety/agitation: currently at home on seroquel 12.5mg twice daily with additional prn dose mid day. ativan prn - would continue. Psychiatry has been consulted.
Functional Status & Support Systems
Current Functional Status:
At his baseline he is able to transfer in and out of chair with assistance, ambulate short distances with walker and last week was able to get out of the home to have lunch with friends. he is supported by family and caregivers, and over the past
week due to agitation/pain his care needs have increased.
Review of Advanced Directives
Type of Documentation: Living Will
Preferences Regarding Resuscitation at End of Life: Limited DNR
Goals of Care Discussion
Patient Goals & Values Discussion
Summary of Patient's Goals of Care [Text6]:
Patient at this time is undecided about his overall goals. he would like to see what the MRI shows and would be open to exploring radiation therapy or other procedures if they could help with his pain.
If cancer was now widespread, he would rather focus on comfort.
We discussed hospice care and what is involved.
His daughter shared how in moments of pain over the last week he would say he wanted to give up, but later when he was more clear he would deny it. This has been confusing for them as a family as they wish to honor his wishes. He states he does not
know, but if he became bedbound or unable to get into a chair or walk, he would then decide to transition to hospice care.
Pain & Symptom Assessment
Patient Symptoms
Patient Symptoms: Pain (reports severe pain to right hip, partial improvement with morphine ), Anxiety (reports feeling anxious ) and Agitation (not agitated at present time, but severe agitation overnight was reported)
Objective Data
-
Objective Data:
Vital Signs
Temp Pulse Resp BP Pulse Ox
97.5 F 90 18 123/76 95
04/25/24 07:35 04/25/24 07:35 04/25/24 07:35 04/25/24 09:33 04/25/24 07:35
Total Protein 4.5 g/dl (6.3-8.2) L 04/24/24 09:14
Albumin 2.5 g/dl (3.5-5.0) L 04/24/24 09:14
Urine Color Yellow 04/24/24 09:14
Urine Clarity Clear (Clear) 04/24/24 09:14
Urine pH 5.0 (5.0-9.0) 04/24/24 09:14
Ur Specific [place] 1.025 (<1.030) 04/24/24 09:14
Urine Ketones Trace (Negative) A 04/24/24 09:14
Urine Bilirubin Negative (Negative) 04/24/24 09:14
Palliative Performance Scale
Palliative Performance Scale:
PPS Level Ambulation Activity & Evidence of Disease Self Care Intake Conscious Level
100% Full Normal Activity & Work; Full Intake Full
No Evidence of Disease
90% Full Normal Activity & Work; Full Normal Full
Some Evidence of Disease
80% Full Normal Activity with Effort Full Normal or Full
Some Evidence of Disease Reduced
70% Reduced Unable Normal Job/Work Full Normal or Full
Significant Disease Reduced
60% Reduced Unable Hobby/Housework Occasional Normal or Full or Confusion
Significant Disease Assistance Reduced
50% Mainly Sit/Lie Unable to do Any Work Considerable Normal or Full or Confusion
Extensive Disease Assistance Req'd Reduced
40% Mainly in Bed Unable to do Most Activity Mainly Assistance Normal or Full or Drowsy;
Extensive Disease Reduced +/- Confusion
30% Totally Bed Unable to do Any Activity Total Care Normal or Full or Drowsy;
Bound Extensive Disease Reduced +/- Confusion
20% Totally Bed Bound Unable to do Any Activity Total Care Minimal to Full or Drowsy;
Extensive Disease Sips +/- Confusion
10% Totally Bed Bound Unable to do Any Activity Total Care Mouth Care Drowsy or Coma;
Extensive Disease Only +/- Confusion
0%
PPS Score Level: 40-50
Physical Exam
-
General: Well Developed
HEENT: Moist Mucous Membranes
Neuro: Awake, Alert and Oriented
Psych: Calm
Assessment / Plan
-
Assessment/Plan:
Goals are at the moment treatment oriented, pending results of MRI.
If condition worsens to the point of bedbound status, would transitition to hospice care
Pain: continue fentanyl patch, morphine prn. consider rotation to alternative opioid (oxycodone) if MRi negative for new findings
Anxiety: stable at current time, would continue seroquel for now and ativan prn/prior to MRI; pending Psychiatry recommendations
Palliativ care will continue to see as inpatient and outpatient.
Care Reviewed
Data Reviewed
Chest X ray: Report Reviewed
Medical Tests: I reviewed
Reviewed with: Patient
--- NOTE | 2024-04-25 12:14 | W.PN.HOSP.TC ---
Today's Communication/Plan
-
Monitor vital signs see plan
Monitor mental status
MRI pending
Oncology and palliative following
Pain control
Labs pending
Discussed with daughter at bedside
Assessment / Plan
Assessment / Plan
General: No acute distress, appears comfortable
HEENT: NormoCephalic, Moist mucous membranes and Atraumatic
Respiratory: Clear
Cardiac: S1/S2 and Regular Rhythm; No Murmur or Rub
GI: Soft, Non Tender, Non Distended and Normal Bowel Sounds
Musculoskeletal: No Clubbing, No Cyanosis and No Edema
Skin: No Rash
Neuro: AO x 3 and Nonfocal/grossly intact
Psych: Calm
confusion/hallucination likely from pain vs pain meds
-head CT with no acute intracranial abnormality
-At present mentation stable however at times he gets agitated
-UA negative
-will obtain MRI of head
-psych consulted
#acute on chronic hypoxic respiratory failure likely due to pain versus pain meds
-COVID negative
-chest x ray with No acute pulmonary process identified. Unchanged elevation right hemidiaphragm.
-Continue supplemental oxygen to keep sat greater than 92
-Wean as tolerated
-BNP 398
# Lower back pain, right hip pain
-MRI pending
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 This extends into the sacral ala on the right side as well as into the right L5 pedicle. This is similar to the previous MRI.Evidence for widespread osseous malignancy elsewhere. This may be
secondary to myeloma or metastatic urinary bladder cancer. These findings are similar to the lumbar spine MRI dated 11/29/2023.70% compression fracture of L1 vertebral body. This is new compared with previous MRI. This is probably a benign
insufficiency fracture, as no L1 lesion was present on the MRI from November,. Retropulsion related to the fracture results in mild flattening of the thecal sac
Multilevel foraminal stenosis secondary to degenerative findings in the lumbar spine. There is also severe spinal canal stenosis at L4/5 secondary to degenerative findings (02/13/2024)
-will obtain lumbar and hip MRI
#generalized weakness likely from metastatic disease
-PT/OT consult
#hxt of DVT/PE
-on eliquis
#plasma Cell Myeloma
- Patient with back pain and hip pain secondary to L5 lesion (with other / small lesions also noted at L3, sacrum, iliac).
-patient is on immunotherapy
- Opiate dependent for pain control
- acyclovir continued
-on fentanyl patch; pain is being managed by palliative
-follow Dr. Farah as outpatient
-oncology consulted
#Benign Hypertension
- on lasix
#DM-II
- On Jardiance
-continue lantus 7 units at hs
- sliding scale
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
#History of Paroxysmal A-Fib s/p PVI Ablation x 2
- No recurrent A-Fib noted. LINQ in place.
- Not maintained on chronic OAC [employer].
#Possible portal vein thrombosis-Per MRI in the past-was not on anticoagulation [employer]
#History of peptic ulcer disease/hiatal hernia-PPI
#Insomnia-continue Seroquel
#Atherosclerosis ,Mild to moderate calcified plaque within the left SFA
Pt doesn't want to take chol meds as he is afraid of side effects
#Diverticulosis
#H/O Bladder Cancer
#Gout
#Ex-smoker
#DVT Prophylaxis: Lovenox
#Code Status: Full
I spent a total of 53 minutes with the patient or on the floor. More than 50% of this time involved counseling and coordination of care.
Anticipated Discharge: > 48 hours
Subjective/Interval History
-
Date of Service: April 25, 2024
has pain
Objective Data
-
Vital Signs:
Vital Signs
Temp Pulse Resp BP Pulse Ox
97.5 F 90 18 123/76 95
04/25/24 07:35 04/25/24 07:35 04/25/24 07:35 04/25/24 09:33 04/25/24 07:35
I&O
04/24/24 04/25/24 04/26/24
06:59 06:59 06:59
Intake Total 120 / 120
Output Total 225 / 225
Balance -105 / -105
--- NOTE | 2024-04-25 12:28 | CON.MD ---
Consultation - Medical
-
patient seen chart reviewed. spoke with nursing. son and daughter at bedside. the patient is an 83 year old male who was admitted yesterday with chief complaint of fatigue, pain, intermittent confusion and delirium. the patient has multiple myeloma
which is thought to be related to his pain. since january he has had periods of confusion, agitation and delirium intermittently throughout the day which can go on for several hours. during those periods sometimes he hears things. these episodes can
occur at various times sometimes at the offset and onset of sleep. sometimes he will fall asleep spent and wake in his normal frame of mind. family feels these episodes are related to medication he has been taking. the patient does NOT have
dementia and in between episodes he is his normal intelligent articulate self which he was with me today. gabapentin and ambien family feels contributed to these episodes and were stopped. concern at this point is whether opiates (fentanyl patch
and morphine) until now necessary for pain relief are the cause. in addition he is taking steroids although this is long standing benadryl prn . seroquel 12.5 mg tid is currently prescribed suggested by dr chilrdess for these episodes. family not
clear that it is improving the situation. the patient describes his pain as 'Mildly disquieting to excruciating' the patient denies depression and has no hx of psych illness. sleep and appetite can be disturbed by pain. he is not suicidal. he was
not hallucinating when i saw him today.
past psych hx none see above
medical hx patient w multiple myeloma for which he has received chemo and radiation. hx chf htn a fib gout hld ascvd niddm gi bleed bowel resection cholycystectomy knee surgery ecg abn w qtc ok cat scan no acute findings mri to be done today.
hgb 13.6 bun 34 cr o.6 bp okay ua looks okay
fh denied
substance abuse rarely may have a glass of wine
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 many interests and hobbies
mse alert x3 cooperative fully engaged . no unusual behaviors at the beginning of this interview which lasted about an hour he was in some resp distress but o2 nasal cannula did help . speech and thought process nl affect ok mood is neutral no si
no psychosis no evidence of delirium insight and judgment at this time were good
dx intermitten delirium etiology not known but likely secondary to medication effect
recommend for now did not change seroquel but added a prn of seroquel and xanax 12.5 mg and o.25 mg respectively. . the latter chosen bc family feels it was hepful without ill effects in the past. asked d and son to keep a record of the time
these incidents occur and note duration. it is hoped that by studying this we might gain some insight into causation. mri may also provide some clues. re pain might consider cymbalta which could be helpful will follow
--- NOTE | 2024-04-25 12:37 | CM ---
Reviewed the chart notes and spoke with the patient and his daughter at the bedside. The patient resides with is spouse in a two story home with two steps to enter. The patient has a hospital bed, rolling walker, transport chair, and a stair
glide. The patient has 24/7 caregivers through [facility]. The patient is current with VN and Palliative Care. The patient has been to [facility] in the past. The patient's pharmacy of choice is the [facility] continues to be
available to patient/family and is monitoring medical plan for needs at discharge.
Plan: Discharge back to home with resumption of VN and Palliative Care.
[2024-04-25 12:41] LABS: Glucose - Point of Care 154 mg/dl (70-99)
--- NOTE | 2024-04-25 12:51 | HOSPNOTE ---
Family reached out to hospice to make an appointment with us next week at home. I was informed patient was in the hospital. The plan is for the patient to have scans done prior to making any decisions about hospice. I gave the daughter my card and
she was grateful and said if needed she will call me. I will continue to follow. Patient is presently on our palliative care.
[2024-04-25 14:07] LABS: Glycohemoglobin (HgbA1c) 7.5 % (4.0-5.6)
[2024-04-25 15:00] VITALS: BP 144/62
--- NOTE | 2024-04-25 16:38 | WOUNDNOTE ---
SACRAL/BUTTOCKS (with photo flash)
--- NOTE | 2024-04-25 16:39 | WOUNDNOTE ---
SACRAL/BUTTOCKS (with photo flash)
--- NOTE | 2024-04-25 16:53 | WOUNDNOTE ---
[facility] RN note: Patient admitted with acute hypoxia and worsening R hip and back pain. Palliative care on consult.
See H&P for complete history.
PMH: palliative care, multiple myeloma on immunotherapy, HF, DM, gout, on 02, weakness, poor po, DVT/PE (Eliquis), HTN, a fib s/p ablation, bladder ca.
Wound Location and type/assessment: Patient admitted with: multiple stage 2 and 3 sacral/buttocks pressure injuries with diffuse dull red skin suspect from chronic pressure and also possible yeast. MASD penile/scrotal skin. Blanchable red heels.
Patient incontinent of urine intermittently.
Appetite: poor.
Pressure redistribution devices in place: [employer] Accumax. Patient declining air mattress. He has ambulated to bathroom with walker and supervision as per GERALDO Montoya. He assists with turning.
Plan: Silicone border foam changed on sacral/buttocks. Patient declined being positioned on his side. Heels off bed with air chair cushion. Patient at high risk for additional and worsening of pressure injuries despite preventative measures in
place d/t overall medical condition.
Confirm orders with Dr. Parr and discussed with GERALDO Montoya. Son aware patient declined air mattress.
Care plan to be updated and will follow as needed.
Note to case management of equipment requested for discharge: air mattress if he accepts.
[2024-04-25 17:08] LABS: Glucose - Point of Care 122 mg/dl (70-99)
--- NOTE | 2024-04-25 17:17 | PTCARENOTE ---
pt refusing specialty mattress despite conversation with wound care, son and this nurse. bed remains outside of room incase of change of heart. pt educated on advantages of skin protection and prevention of breakdown. will continue to educate and
monitor this decision.
[2024-04-25] MEDS: SINGULAIR 10 MG PO (17:29)
[2024-04-25 19:15] VITALS: BP 118/61
[2024-04-25] MEDS: DESENEX/MITRAZOL/ZEASORB 1 APPLIC TOPICAL (20:03)
[2024-04-25 21:10] LABS: Blood Urea Nitrogen 24 mg/dl (9-20); Calcium 9.1 mg/dl (8.4-10.2); Carbon Dioxide 28 mmol/L (22-30); Chloride 97 mmol/L (98-107); Estimated Creatinine Clearance 92 ml/min; Glucose 147 mg/dl (70-99); Potassium 4.5 mmol/L (3.5-5.1); Sodium 136 mmol/L (135-145); eGFR > 60.00
[2024-04-25 21:11] LABS: Hemoglobin 15.4 g/dL (13.0-18.0); Mean Corp Hgb Conc. 32.8 g/dL (33.0-37.0); Mean Corpuscular Hgb 29.4 pg (27.0-31.0); Mean Corpuscular Volume 89.7 fL (80.0-94.0); Mean Platelet Volume 9.5 fL (7.4-10.4); Platelet Count 324 10^3/uL (130-400); Red Blood Cell Count 5.24 10^6/uL (4.70-6.10); Red Cell Dist. Width 19.3 % (11.5-14.5); White Blood Cell Count 8.5 10^3/uL (4.8-10.8)
[2024-04-25 21:24] LABS: Glucose - Point of Care 133 mg/dl (70-99)
[2024-04-25 23:40] VITALS: BP 125/64
[2024-04-26] VITALS (7 sets, daily range): BP systolic 115–143; BP diastolic 54–75; BMI 23.5
[2024-04-26] MEDS: MORPHINE ORAL SOLUTION 10 MG PO ×3 (01:28→17:38)
[2024-04-26 07:58] LABS: Glucose - Point of Care 125 mg/dl (70-99)
--- NOTE | 2024-04-26 08:23 | W.PN.ONC2 ---
Today's Communication / Plan
-
f/u MRI brain, L spine, and hip
pain management -consider palliative care consult for continuity of pain management
Impression
Impression
Intractable paroxysms of pain
No clear evidence of multiple myeloma progression
Generalized weakness and deconditioning
Hypertension
Diabetes mellitus
Paralyzed right hemidiaphragm chronic
PAF
Plan
Plan
MRI brain, spine, hip pending to ascertain etiology of pain and AMS
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
Pain exacerbation may be related to radiculopathy amenable to either steroid injection or subtle fracture
Palliative care service manages pain outpatient
Subjective/Objective
Chief Complaint
82mg morphine IR PO/24hours, as well as fent patch
CT head for AMS no acute findings
MRI brain, L spine, and right hip pending
Subjective
no new complaints
Vital Signs:
Vital Signs
Temp Pulse Resp BP Pulse Ox
97.3 F 70 18 128/54 90
04/26/24 07:30 04/26/24 07:30 04/26/24 07:30 04/26/24 07:30 04/26/24 07:30
Lab Results:
Laboratory Data
WBC 8.5 10^3/uL (4.8-10.8) 04/25/24 20:45
Hgb 15.4 g/dL (13.0-18.0) 04/25/24 20:45
Plt Count 324 10^3/uL (130-400) D 04/25/24 20:45
eGFR > 60.00 04/25/24 20:46
Physical Exam
General: No acute distress, appears comfortable
HEENT: NormoCephalic, Moist mucous membranes and Atraumatic
Respiratory: Clear
Cardiac: S1/S2 and Regular Rhythm; No Murmur or Rub
GI: Soft, Non Tender, Non Distended
Musculoskeletal: No Edema
Skin: No Rash
Neuro: AO x 3 and Nonfocal/grossly intact
Psych: Calm
Review of Systems
Review of Systems
ROS notable for subjective, otherwise negative
[2024-04-26 09:27] LABS: Hematocrit 45.1 % (39.0-52.0); Hemoglobin 14.6 g/dL (13.0-18.0); Mean Corp Hgb Conc. 32.4 g/dL (33.0-37.0); Mean Corpuscular Hgb 29.7 pg (27.0-31.0); Mean Corpuscular Volume 91.7 fL (80.0-94.0); Mean Platelet Volume 9.6 fL (7.4-10.4); Platelet Count 256 10^3/uL (130-400); Red Blood Cell Count 4.92 10^6/uL (4.70-6.10); Red Cell Dist. Width 18.6 % (11.5-14.5); White Blood Cell Count 8.4 10^3/uL (4.8-10.8)
[2024-04-26] MEDS: MIRALAX 17 GRAMS PO (09:27)
[2024-04-26] MEDS: ZOVIRAX 400 MG PO ×2 (09:27→20:02)
[2024-04-26] MEDS: TYLENOL 1000 MG PO ×3 (09:28→21:18)
[2024-04-26] MEDS: JARDIANCE 10 MG PO (09:29)
[2024-04-26] MEDS: KCL 20 MEQ PO (09:30)
[2024-04-26] MEDS: ELIQUIS 5 MG PO ×2 (09:30→20:03)
[2024-04-26] MEDS: LASIX 40 MG PO (09:30)
[2024-04-26] MEDS: PROTONIX 40 MG PO (09:30)
[2024-04-26] MEDS: DESENEX/MITRAZOL/ZEASORB 1 APPLIC TOPICAL ×2 (09:32→20:04)
[2024-04-26] MEDS: NOVOLOG FLEXPEN-LOW RESISTANCE SC ×2 (09:32→13:31)
--- NOTE | 2024-04-26 10:25 | PN.CDI ---
CDI
- -
CDI:
Physician Documentation Request
Admit Date: 04/24/24 13:02
Dear Doctor Keshav,
Please review the following and provide your response in the progress notes.
Clinical Indicators:
Pt admitted with confusion/hallucination.
04/24 RN noted right and left buttock stage 3 pressures injuries in initial assessment POA.
04/25 [facility] RN note: 'Patient admitted with: multiple stage 2 and 3 sacral/buttocks pressure injuries.'
Physician documentation of the type and location of wounds is required for compliant documentation. Based on the above clinical findings and your assessment, please provide the following in your progress note:
sacral and bilateral buttocks pressure injuries POA
sacral and bilateral non pressure injuries POA
Other
Use of terms such as suspected, likely, concern for, or probable (associated with a specific diagnosis that is being evaluated, monitored, or treated as if it exists) are acceptable and can be coded in the inpatient setting, when documented at the
time of discharge.
Thank you,
Charlene Ventura RN, BSN
CDI Specialist
Available via [place] [employer]
Please use your independent medical judgment in providing your response.
*Source: National Pressure Ulcer Advisory Panel (NPUAP)
[2024-04-26] MEDS: LANTUS 0.07 UNITS SC (11:00)
[2024-04-26] MEDS: ATIVAN 0.5 MG IV (11:17)
--- NOTE | 2024-04-26 11:26 | W.PN.HOSP.TC ---
Today's Communication/Plan
-
Monitor vital signs
see plan
MRI pending
Monitor mental status
Assessment / Plan
Assessment / Plan
General: No acute distress, appears comfortable
HEENT: NormoCephalic, Moist mucous membranes and Atraumatic
Respiratory: Clear
Cardiac: S1/S2 and Regular Rhythm; No Murmur or Rub
GI: Soft, Non Tender, Non Distended and Normal Bowel Sounds
Musculoskeletal: No Clubbing, No Cyanosis and No Edema
Skin: No Rash
Neuro: AO x 3 and Nonfocal/grossly intact
Psych: Calm
confusion/hallucination likely from pain vs pain meds
-head CT with no acute intracranial abnormality
-At present mentation stable however at times he gets agitated
-UA negative
-will obtain MRI of head;pending
-psych following
on seroquel prn now
#acute on chronic hypoxic respiratory failure likely due to pain versus pain meds
-COVID negative
-chest x ray with No acute pulmonary process identified. Unchanged elevation right hemidiaphragm.
-Continue supplemental oxygen to keep sat greater than 92
-Wean as tolerated
-BNP 398
# Lower back pain, right hip pain
-MRI pending
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 This extends into the sacral ala on the right side as well as into the right L5 pedicle. This is similar to the previous MRI.Evidence for widespread osseous malignancy elsewhere. This may be
secondary to myeloma or metastatic urinary bladder cancer. These findings are similar to the lumbar spine MRI dated 11/29/2023.70% compression fracture of L1 vertebral body. This is new compared with previous MRI. This is probably a benign
insufficiency fracture, as no L1 lesion was present on the MRI from November,. Retropulsion related to the fracture results in mild flattening of the thecal sac
Multilevel foraminal stenosis secondary to degenerative findings in the lumbar spine. There is also severe spinal canal stenosis at L4/5 secondary to degenerative findings (02/13/2024)
-will obtain lumbar and hip MRI,pending
#generalized weakness likely from metastatic disease
-PT/OT consult
#hxt of DVT/PE
-on eliquis
#plasma Cell Myeloma
- Patient with back pain and hip pain secondary to L5 lesion (with other / small lesions also noted at L3, sacrum, iliac).
-patient is on immunotherapy
- Opiate dependent for pain control
- acyclovir continued
-on fentanyl patch; pain is being managed by palliative
-follow Dr. Farah as outpatient
-oncology following
#Benign Hypertension
- on lasix
#DM-II
- On Jardiance
-continue lantus 7 units at hs
- sliding scale
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
#History of Paroxysmal A-Fib s/p PVI Ablation x 2
- No recurrent A-Fib noted. LINQ in place.
- Not maintained on chronic OAC CLAIM INVESTIGATOR.
sacral and bilateral buttocks pressure injuries POA
#Possible portal vein thrombosis-Per MRI in the past-was not on anticoagulation CLAIM INVESTIGATOR
#History of peptic ulcer disease/hiatal hernia-PPI
#Insomnia-continue Seroquel
#Atherosclerosis ,Mild to moderate calcified plaque within the left SFA
Pt doesn't want to take chol meds as he is afraid of side effects
#Diverticulosis
#H/O Bladder Cancer
#Gout
#Ex-smoker
#DVT Prophylaxis: Lovenox
#Code Status: Full
Anticipated Discharge: > 48 hours
Subjective/Interval History
-
Date of Service: April 26, 2024
has right hip pain
Objective Data
-
Labs:
Laboratory Results
04/26/24 04/26/24
08:47 10:33
WBC 8.4
Hgb 14.6
Hct 45.1
Plt Count 256 D
Sodium Cancelled Pending
Potassium Cancelled Pending
Chloride Cancelled Pending
Carbon Dioxide Cancelled Pending
BUN Cancelled Pending
Creatinine Cancelled Pending
Glucose Cancelled Pending
Calcium Cancelled Pending
Vital Signs:
Vital Signs
Temp Pulse Resp BP Pulse Ox
97.3 F 70 18 128/54 90
04/26/24 07:30 04/26/24 07:30 04/26/24 07:30 04/26/24 07:30 04/26/24 07:30
I&O
04/25/24 04/26/24 04/27/24
06:59 06:59 06:59
Intake Total 120 / 120 510 / 510
Output Total 225 / 225 495 / 495
Balance -105 / -105 15 / 15 -20 / -20
[2024-04-26 11:35] LABS: Blood Urea Nitrogen 19 mg/dl (9-20); Calcium 8.7 mg/dl (8.4-10.2); Carbon Dioxide 27 mmol/L (22-30); Chloride 97 mmol/L (98-107); Estimated Creatinine Clearance 92 ml/min; Glucose 168 mg/dl (70-99); Potassium 4.3 mmol/L (3.5-5.1); Sodium 132 mmol/L (135-145); eGFR > 60.00
--- NOTE | 2024-04-26 12:02 | W.PN.PAL2 ---
Today's Communication
-
MRI delayed to today, awaiting results
He is calm and clear at time of my visit, son Roland at bedside.
Assessment / Plan
-
Assessment/Plan:
Awaiting MRI results which may help family decide on goals for further treatment vs. hospice.
IF mri brain negative, could trial opioid rotation to reduce agitation, however has been stable over last two visits despite continued pain medication.
Reason for Admission
Illness Course/HPI
HPI: Pineda is a 83 y/o male known to the outpatient palliative fpc program, with history of multiple mylemoa with known hx of lesions at L3, L5, R iliac bone s/p recent radiation (right hip). Over the past week has been having increasing
episodes of agitation/anxiety, as well as worsening pain. He awas hospitalized on 04/24 for delerium and weakness. Initial workup - labs, ct head were reviewed, without significant findings at this time. At the time of my encounter, patient is calm
and able to converse with me. He reports that he is to have an MRI today and is not looking forward to it, but is willing to go through with the testing as he would like to know why he is having increased pain and would be open to further radiation
or other procedure if needed. He reports his pain is severe even at rest, and also admits to symptoms of anxiety. Daughter Karine at bedside as well.
we discussed that his agitation symptoms may be due to cancer progression, pain progression (pain and pain medications can both cause agitation) or meds
Pain: current home meds are MSIR 7.5mg PRN and Fentanyl Patch 25mcg q 72 hours. Prior trial of gabapentin caused deleirum. Was previously on steroids, but they were weaned several months ago as they were thought to be contributing to weakness. At
this time, plan is to see what MRI shows. If negative for new findings, discussed rotating morphine to another opioid. If bony met, could consider steroid as long as anxiety/agitation were stable.
discussed [facility] certification (unable to be completed due to system issue) for pain/anxiety/agitation, but would not start at the moment.
Anxiety/agitation: currently at home on seroquel 12.5mg twice daily with additional prn dose mid day. ativan prn - would continue. Psychiatry has been consulted.
Functional Status & Support Systems
Current Functional Status:
At his baseline he is able to transfer in and out of chair with assistance, ambulate short distances with walker and last week was able to get out of the home to have lunch with friends. he is supported by family and caregivers, and over the past
week due to agitation/pain his care needs have increased.
Review of Advanced Directives
Type of Documentation: Living Will
Preferences Regarding Resuscitation at End of Life: Limited DNR
Pain & Symptom Assessment
Patient Symptoms
Patient Symptoms: Pain (moderate to severe pain, medications received an hour prior. )
Objective Data
-
Objective Data:
Vital Signs
Temp Pulse Resp BP Pulse Ox
97.9 F 67 18 117/62 93
04/26/24 11:15 04/26/24 11:15 04/26/24 11:15 04/26/24 11:15 04/26/24 11:15
Laboratory Results
04/26/24 08:47
04/26/24 10:33
Hemoglobin A1c Cancelled 04/25/24 06:00
Total Protein 4.5 g/dl (6.3-8.2) L 04/24/24 09:14
Albumin 2.5 g/dl (3.5-5.0) L 04/24/24 09:14
Urine Color Yellow 04/24/24 09:14
Urine Clarity Clear (Clear) 04/24/24 09:14
Urine pH 5.0 (5.0-9.0) 04/24/24 09:14
Ur Specific [place] 1.025 (<1.030) 04/24/24 09:14
Urine Ketones Trace (Negative) A 04/24/24 09:14
Urine Bilirubin Negative (Negative) 04/24/24 09:14
Palliative Performance Scale
Palliative Performance Scale:
PPS Level Ambulation Activity & Evidence of Disease Self Care Intake Conscious Level
100% Full Normal Activity & Work; Full Intake Full
No Evidence of Disease
90% Full Normal Activity & Work; Full Normal Full
Some Evidence of Disease
80% Full Normal Activity with Effort Full Normal or Full
Some Evidence of Disease Reduced
70% Reduced Unable Normal Job/Work Full Normal or Full
Significant Disease Reduced
60% Reduced Unable Hobby/Housework Occasional Normal or Full or Confusion
Significant Disease Assistance Reduced
50% Mainly Sit/Lie Unable to do Any Work Considerable Normal or Full or Confusion
Extensive Disease Assistance Req'd Reduced
40% Mainly in Bed Unable to do Most Activity Mainly Assistance Normal or Full or Drowsy;
Extensive Disease Reduced +/- Confusion
30% Totally Bed Unable to do Any Activity Total Care Normal or Full or Drowsy;
Bound Extensive Disease Reduced +/- Confusion
20% Totally Bed Bound Unable to do Any Activity Total Care Minimal to Full or Drowsy;
Extensive Disease Sips +/- Confusion
10% Totally Bed Bound Unable to do Any Activity Total Care Mouth Care Drowsy or Coma;
Extensive Disease Only +/- Confusion
0%
PPS Score Level: 40 -50
Physical Exam
-
General: Well Developed
HEENT: Normocephalic
Neuro: Awake and Alert
Psych: Calm
No confusion or agitation at time of my visit
[2024-04-26 13:27] LABS: Glucose - Point of Care 132 mg/dl (70-99)
--- NOTE | 2024-04-26 14:05 | W.PN.UPDATE ---
Update Note
Progress Note Update
patient seen chart reviewed. spoke with patient's nursing eye care professional. patient has been cooperative and pleasant. he was seen after he arrived from mri results of which are not yet available. he made a lot of effort to talk with me. i asked him
questions about his family, about current events...etc but he had a hard time articulating what he wanted to say i suspect bc the ativan was making him drowsy. in the end i suggested that he allow himself to take a nap and he said 'yes i am tired'.
did not make any changes in psych meds. will touch base w him tomorrow.
--- NOTE | 2024-04-26 15:38 | CM ---
Reviewed the chart notes and spoke with the patient and his son at the bedside. IMM reviewed and placed on chart. continues to be available to patient/family and is monitoring medical plan for needs at discharge.
Plan: Discharge to home with VN and Palliative Care.
[2024-04-26 17:16] LABS: Glucose - Point of Care 161 mg/dl (70-99)
[2024-04-26] MEDS: NOVOLOG FLEXPEN-LOW RESISTANCE 1 UNITS SC (17:37)
[2024-04-26] MEDS: DURAGESIC 25 MCG/HR PATCH 1 PATCH TRANSDERM (19:54)
[2024-04-26] MEDS: SEROQUEL 12.5 MG PO (21:16)
[2024-04-26 21:21] LABS: Glucose - Point of Care 128 mg/dl (70-99)
[2024-04-27 02:48] VITALS: BP 136/74
[2024-04-27] MEDS: MORPHINE ORAL SOLUTION 10 MG PO ×3 (05:38→19:40)
[2024-04-27 07:30] VITALS: BP 135/75
[2024-04-27 09:05] LABS: Glucose - Point of Care 110 mg/dl (70-99)
[2024-04-27 09:26] LABS: Hematocrit 40.7 % (39.0-52.0); Hemoglobin 13.6 g/dL (13.0-18.0); Mean Corp Hgb Conc. 33.4 g/dL (33.0-37.0); Mean Corpuscular Hgb 29.6 pg (27.0-31.0); Mean Corpuscular Volume 88.7 fL (80.0-94.0); Mean Platelet Volume 9.2 fL (7.4-10.4); Platelet Count 250 10^3/uL (130-400); Red Blood Cell Count 4.59 10^6/uL (4.70-6.10); Red Cell Dist. Width 18.7 % (11.5-14.5); White Blood Cell Count 7.4 10^3/uL (4.8-10.8)
[2024-04-27] MEDS: PROTONIX 40 MG PO (09:28)
[2024-04-27] MEDS: LANTUS 0.07 UNITS SC (09:28)
[2024-04-27] MEDS: LASIX 40 MG PO (09:28)
[2024-04-27] MEDS: ELIQUIS 5 MG PO ×2 (09:29→19:30)
[2024-04-27] MEDS: ZOVIRAX 400 MG PO ×2 (09:29→19:30)
[2024-04-27] MEDS: TYLENOL 1000 MG PO ×3 (09:29→22:53)
[2024-04-27] MEDS: JARDIANCE 10 MG PO (09:29)
[2024-04-27] MEDS: DESENEX/MITRAZOL/ZEASORB 1 APPLIC TOPICAL ×2 (09:30→19:31)
[2024-04-27] MEDS: KCL 20 MEQ PO (09:30)
[2024-04-27] MEDS: MIRALAX 17 GRAMS PO (09:30)
[2024-04-27] MEDS: NOVOLOG FLEXPEN-LOW RESISTANCE SC ×2 (09:30→16:56)
[2024-04-27 09:53] LABS: Blood Urea Nitrogen 17 mg/dl (9-20); Calcium 8.4 mg/dl (8.4-10.2); Carbon Dioxide 27 mmol/L (22-30); Chloride 100 mmol/L (98-107); Estimated Creatinine Clearance 92 ml/min; Glucose 103 mg/dl (70-99); Potassium 3.9 mmol/L (3.5-5.1); Sodium 136 mmol/L (135-145); eGFR > 60.00
--- NOTE | 2024-04-27 11:05 | W.PN.HOSP.TC ---
Today's Communication/Plan
-
Monitor vital signs see plan
MRI hip pending
Discussed with patient and family at bedside
Pain control
PT/OT
Assessment / Plan
Assessment / Plan
General: No acute distress, appears comfortable
HEENT: NormoCephalic, Moist mucous membranes and Atraumatic
Respiratory: Clear
Cardiac: S1/S2 and Regular Rhythm; No Murmur
GI: Soft, Non Tender, Non Distended and Normal Bowel Sounds
Musculoskeletal: No Edema
Neuro: AO x 3 and Nonfocal/grossly intact
Psych: Calm
confusion/hallucination likely from pain vs pain meds
-head CT with no acute intracranial abnormality
-At present mentation stable however at times he gets agitated which has been improving
-UA negative
-MRI brain consistent with atrophy which is consistent with possible centimeters. Spoke with patient and family and per family patient has not been showing severe signs of dementia at this time.
-psych following
on seroquel prn now
#acute on chronic hypoxic respiratory failure likely due to pain versus pain meds
Paralyzed right hemidiaphragm chronic
-COVID negative
-chest x ray with No acute pulmonary process identified. Unchanged elevation right hemidiaphragm.
-Continue supplemental oxygen to keep sat greater than 92
-Wean as tolerated
-BNP 398
does have some anxiety component as well
# Lower back pain, right hip pain
-MRI hip pending
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 This extends into the sacral ala on the right side as well as into the right L5 pedicle. This is similar to the previous MRI.Evidence for widespread osseous malignancy elsewhere. This may be
secondary to myeloma or metastatic urinary bladder cancer. These findings are similar to the lumbar spine MRI dated 11/29/2023.70% compression fracture of L1 vertebral body. This is new compared with previous MRI. This is probably a benign
insufficiency fracture, as no L1 lesion was present on the MRI from November,. Retropulsion related to the fracture results in mild flattening of the thecal sac
Multilevel foraminal stenosis secondary to degenerative findings in the lumbar spine. There is also severe spinal canal stenosis at L4/5 secondary to degenerative findings (02/13/2024)
Lumbar MRI with subacute fracture of superior endplate of L1 with progressive near complete collapse of the vertebral body causing moderate central canal stenosis. 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
Patient denies any saddle anesthesia. Will need PT/OT and pain control. Can follow up with spine outpatient
#generalized weakness likely from metastatic disease
-PT/OT consult
#hxt of DVT/PE
-on eliquis
#plasma Cell Myeloma
- Patient with back pain and hip pain secondary to L5 lesion (with other / small lesions also noted at L3, sacrum, iliac).
-patient is on immunotherapy
- Opiate dependent for pain control
- acyclovir continued
-on fentanyl patch; pain is being managed by palliative
-follow Dr. Farah as outpatient
-oncology following
#Benign Hypertension
- on lasix
#DM-II
- On Jardiance
-continue lantus 7 units at hs
- sliding scale
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
#History of Paroxysmal A-Fib s/p PVI Ablation x 2
- No recurrent A-Fib noted. LINQ in place.
- Not maintained on chronic OAC CHAR CONVEYOR TENDER.
sacral and bilateral buttocks pressure injuries POA
#Possible portal vein thrombosis-Per MRI in the past-was not on anticoagulation CHAR CONVEYOR TENDER
#History of peptic ulcer disease/hiatal hernia-PPI
#Insomnia-continue Seroquel
#Atherosclerosis ,Mild to moderate calcified plaque within the left SFA
Pt doesn't want to take chol meds as he is afraid of side effects
#Diverticulosis
#H/O Bladder Cancer
#Gout
#Ex-smoker
#DVT Prophylaxis: Lovenox
#Code Status: Limited DNR
I spent a total of 51 minutes with the patient or on the floor. More than 50% of this time involved counseling and coordination of care.
Anticipated Discharge: 24 - 48 hours
Subjective/Interval History
-
Date of Service: April 27, 2024
has some pain
Objective Data
-
Labs:
Laboratory Results
04/27/24
08:54
WBC 7.4
Hgb 13.6
Hct 40.7
Plt Count 250
Sodium 136
Potassium 3.9
Chloride 100
Carbon Dioxide 27
BUN 17
Creatinine 0.6 L
Glucose 103 H
Calcium 8.4
Vital Signs:
Vital Signs
Temp Pulse Resp BP Pulse Ox
97.7 F 75 14 135/75 92
04/27/24 07:30 04/27/24 07:30 04/27/24 07:30 04/27/24 07:30 04/27/24 07:30
I&O
04/26/24 04/27/24 04/28/24
06:59 06:59 06:59
Intake Total 510 / 510 1200 / 1200
Output Total 495 / 495 20 / 20
Balance 15 / 15 1180 / 1180
[2024-04-27 11:25] VITALS: BP 166/66
[2024-04-27 11:30] LABS: Glucose - Point of Care 161 mg/dl (70-99)
[2024-04-27] MEDS: ATIVAN 0.5 MG IV (11:41)
[2024-04-27] MEDS: NOVOLOG FLEXPEN-LOW RESISTANCE 1 UNITS SC (13:37)
--- NOTE | 2024-04-27 14:46 | W.PN.UPDATE ---
Update Note
Progress Note Update
patient seen chart reviewed spoke with nursing and with patient childcare teacher . spoke to son at length by telephone. explained that seroquel tid was canceled on the day that of initial psych consult when i ordered the prn. pharmacy confirmed that for
some reason the ordering of the prn canceled out the tid dosage. he has not needed it in my opinion given the level of sedation noted today and yesterday . some of this may be attributed to the ativan prn prior to mri's. son felt that at least some
of what has been thought to be short periods of delirium is not due to delirium but rather to his father being prone when frustrated and upset to bursts of anger . son does note that these bursts of emotion had worsened with administration of
opiates for pain which he has been getting less frequently at this point and there have been no outbursts in the past 48 hours or so. when i have seen him and i spent about an hour with him on day one he has been entirely appropriate except for
some sedation yesterday and today presumably from bzp. the patient was quietly resting in bed. he is fond of talking about his granddaughter gisell which he did again today. he also talked about [place]....there was a foot ball game
on....discussed with son the results of mri hip and spine which show impact of myeloma both son and patient express desire to talk w oncologist about these results and where they will go from here. for now would not restart the standing order of
tid seroquel would continue w prns of xanax (not ativan except for mri). if he needs these prns' regularly then could restart the monika doses of seroquel. psych will see him tomorrow.
[2024-04-27 15:40] VITALS: BP 127/81
--- NOTE | 2024-04-27 16:03 | W.PN.ONC2 ---
Today's Communication / Plan
-
Will discuss with IR, Neurosurg.
Impression
Impression
Intractable paroxysms of pain
No clear evidence of multiple myeloma progression
Generalized weakness and deconditioning
Hypertension
Diabetes mellitus
Paralyzed right hemidiaphragm chronic
PAF
Plan
Plan
MRI spine and hip show subacute L1 fracture with progressive height loss and increased retropulsion, path fx at L5. He has previously undergone RT to lumbar spine.
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
The pain is triggered by specific movements and he has not 'tested it' today to see if he can move without severe pain.
Suggest IR consult regarding possible vertebroplasty, possible neurosurg consult regarding need for surgery for increased retropulsion at L1. Suggest consulting both.
Palliative care service manages pain outpatient
Subjective/Objective
Chief Complaint
Multiple myeloma, acute on chronic back pain
Subjective
No pain today but has not moved in ways that usually trigger the pain.
Pain feels the pain is coming from the joint but joint appears okay on hip MRI.
Vital Signs:
Vital Signs
Temp Pulse Resp BP Pulse Ox
97.4 F 76 20 127/81 99
04/27/24 15:40 04/27/24 15:40 04/27/24 15:40 04/27/24 15:40 04/27/24 15:40
Lab Results:
Laboratory Data
WBC 7.4 10^3/uL (4.8-10.8) 04/27/24 08:54
Hgb 13.6 g/dL (13.0-18.0) 04/27/24 08:54
Plt Count 250 10^3/uL (130-400) 04/27/24 08:54
eGFR > 60.00 04/27/24 08:54
Physical Exam
Awake, alert, non-toxic
[2024-04-27 16:50] LABS: Glucose - Point of Care 94 mg/dl (70-99)
[2024-04-27 19:20] VITALS: BP 121/64
[2024-04-27] MEDS: SEROQUEL 12.5 MG PO (21:04)
[2024-04-27 21:32] LABS: Glucose - Point of Care 171 mg/dl (70-99)
[2024-04-27 23:52] VITALS: BP 115/71
[2024-04-28] VITALS (8 sets, daily range): BP systolic 104–129; BP diastolic 62–75; PULSE 85–93; O2SAT 95
[2024-04-28] MEDS: MORPHINE ORAL SOLUTION 10 MG PO (02:00)
[2024-04-28 06:39] LABS: Hematocrit 42.9 % (39.0-52.0); Hemoglobin 14.3 g/dL (13.0-18.0); Mean Corp Hgb Conc. 33.3 g/dL (33.0-37.0); Mean Corpuscular Hgb 30.5 pg (27.0-31.0); Mean Corpuscular Volume 91.5 fL (80.0-94.0); Mean Platelet Volume 9.2 fL (7.4-10.4); Platelet Count 231 10^3/uL (130-400); Red Blood Cell Count 4.69 10^6/uL (4.70-6.10); Red Cell Dist. Width 18.2 % (11.5-14.5); White Blood Cell Count 6.3 10^3/uL (4.8-10.8)
[2024-04-28 06:59] LABS: Blood Urea Nitrogen 19 mg/dl (9-20); Calcium 8.7 mg/dl (8.4-10.2); Carbon Dioxide 27 mmol/L (22-30); Chloride 100 mmol/L (98-107); Estimated Creatinine Clearance 79 ml/min; Glucose 105 mg/dl (70-99); Potassium 3.9 mmol/L (3.5-5.1); Sodium 136 mmol/L (135-145); eGFR > 60.00
[2024-04-28 08:03] LABS: Glucose - Point of Care 110 mg/dl (70-99)
--- NOTE | 2024-04-28 08:58 | W.PN.HOSP.TC ---
Today's Communication/Plan
-
pending NEuroSx eval
Assessment / Plan
Assessment / Plan
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 He recetly had his pain medication doses increased with introduction of fentanyl patch
and was also started on Seroquel. Delirium resolved with decrease of his antipsychotics, pain improved to the point that patient was able to move to the bathroom in the hospital. MRI hip showed known plasmacytoma with osseous lesions in iliac and
pathologic Fx of L5. Pending neuroSx eval
A/P:
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
#MM
NEuroSx consult for possible vertebroplasty vs other intervention
pain mgmt
PT/OT
Oncology follows: non-secretory plasmacytoma
Paliative follows: cont pain mgmt regimen
#Episodes of delirium, most likely 2/2 polypharmacy
resolved with adjustment of meds - ZOloft decreased to PRN
MRI brain: concern for volume loss 2/2 neurodegenerative disease - outpatient neurology
Pscych followed
#Small disk herniation C3/C4, C4/C5 with minimal central cord compression
NeuroSx follow up
#Diffuse OP
outpatient f/u with pcp
#DM type 2 with neuropathy
Accuchecks, insulin SS, DM diet
#R hemidiaphragm elevation
#paroxysmal afib
#Portal vein thrombosis
#Essential HTN
#GERD
#ASCVD
#Hx of urinary bladder CA
#Gout
COnt home meds
Might need ELiquis bridge with hep if spinal procedure planned. WIth improvement of the pain - unclear at this time, will await neuroSx determination before initiating bridging
DVT ppx on ELiquis
DNI, CPR ok
Anticipated Discharge: 24 - 48 hours
Subjective/Interval History
-
Date of Service: April 28, 2024
Objective Data
-
Labs:
Laboratory Results
04/28/24
06:18
WBC 6.3
Hgb 14.3
Hct 42.9
Plt Count 231
Sodium 136
Potassium 3.9
Chloride 100
Carbon Dioxide 27
BUN 19
Creatinine 0.7
Glucose 105 H
Calcium 8.7
Vital Signs:
Vital Signs
Temp Pulse Resp BP Pulse Ox
97.4 F 76 14 127/66 91
04/28/24 03:03 04/28/24 07:30 04/28/24 07:30 04/28/24 07:30 04/28/24 07:30
I&O
04/27/24 04/28/24 04/29/24
06:59 06:59 06:59
Intake Total 1200 / 1200 660 / 660 480 / 480
Output Total 20 / 20
Balance 1180 / 1180 660 / 660 480 / 480
Review of Systems
-
History Source: Patient
All other systems: Reviewed and negative
Physical Exam
-
General: Well Developed and Well Nourished
HEENT: Moist Mucous Membranes
Respiratory: Clear to Auscultation
Cardiac: Regular Rhythm
GI: Soft, Nontender and Nondistended
Musculoskeletal: No Clubbing, No Cyanosis and No Edema
Neuro: Awake, Alert, Oriented, AO x 3 and No Motor Deficits
Psych: Apparent Dementia
[2024-04-28] MEDS: TYLENOL 1000 MG PO ×3 (09:15→21:26)
[2024-04-28] MEDS: ZOVIRAX 400 MG PO ×2 (09:15→19:23)
[2024-04-28] MEDS: LANTUS 0.07 UNITS SC (09:15)
[2024-04-28] MEDS: KCL 20 MEQ PO (09:15)
[2024-04-28] MEDS: MIRALAX 17 GRAMS PO (09:15)
[2024-04-28] MEDS: JARDIANCE 10 MG PO (09:16)
[2024-04-28] MEDS: PROTONIX 40 MG PO (09:16)
[2024-04-28] MEDS: ELIQUIS 5 MG PO ×2 (09:16→19:24)
[2024-04-28] MEDS: DESENEX/MITRAZOL/ZEASORB 1 APPLIC TOPICAL ×2 (09:16→19:38)
[2024-04-28] MEDS: LASIX 40 MG PO (09:16)
[2024-04-28] MEDS: NOVOLOG FLEXPEN-LOW RESISTANCE SC (09:17)
[2024-04-28 11:10] LABS: Glucose - Point of Care 199 mg/dl (70-99)
--- NOTE | 2024-04-28 11:46 | W.PN.UPDATE ---
Update Note
Progress Note Update
Patient is presently asleep, apparently has not been agitated or aggressive.
I did not want to wake him ; will for now continue the prn Seroquel.
Will F/U
--- NOTE | 2024-04-28 11:48 | CON.NS ---
Consultation
-
Date/Time Consultation Performed: 04/28/2024; 11:50 am
Performing Provider: Monica
Chief Complaint
History of Present Illness
This is a neurosurgical consultation on a 83-year-old gentleman, with a history of multiple myeloma, on immunotherapy, congestive heart failure on Lasix, on oxygen, who presents with overall weakness, poor appetite, with ongoing/worsening low
back/right hip pain. Patient was noted to have altered mental status, with delirium and hallucinations. He was scheduled for an MRI on the morning of his presentation, but came in due to worsening hip pain.
Patient had an MRI of the hip, as well as lumbar spine, which revealed L5 disease, as well as L1 compression fracture. Neurosurgery asked for further input.
Patient seen and examined. He denies any lower extremity symptoms such as numbness, tingling, or new weakness. He does report that his pain is primarily along the hips bilaterally. Currently, he states that his pain is not present, and
significantly improved.
Review of Systems
-
10 point review of systems was performed which includes constitutional, ENT, cardiovascular, respiratory, GI, , endocrinologic, hematologic, neurologic, musculoskeletal, and was negative, except for stated in HPI.
Medication and Allergies
Home Medications
Home Medications
�Medication �Instructions �Recorded
empagliflozin 10 mg tablet 10 mg PO DAILY Diabetes/Heart 12/27/23
(Jardiance) failure
furosemide 40 mg tablet 40 mg PO DAILY Fluid 12/28/23
Retention/Swelling
acetaminophen 500 mg tablet 1,000 mg (2 x 500 mg) PO TID Pain 02/15/24
(Tylenol Extra Strength) #30 tabs
acyclovir 400 mg tablet 400 mg PO BID Prophylaxis 04/24/24
apixaban 5 mg tablet (Eliquis) 5 mg PO BID Blood clot 04/24/24
prevention/tx
daratumumab 20 mg/mL intravenous 20 mg IV WE Antineoplastic 04/24/24
solution (Darzalex)
dexamethasone 2 mg tablet 4 mg PO THFR Anti-Inflammatory 04/24/24
dexamethasone 20 mg tablet 20 mg PO WE 04/24/24
diphenhydramine HCl 50 mg capsule 50 mg PO WE Allergies 04/24/24
famotidine 20 mg tablet (Pepcid) 40 mg PO WE Gastrointestinal Issue 04/24/24
fentanyl 25 mcg/hr transdermal 1 patch transdermal Q72H Pain 04/24/24
patch
insulin glargine 100 unit/mL (3 15 unit SC DAILY Diabetes 04/24/24
mL) subcutaneous pen (Lantus
Solostar U-100 Insulin)
insulin lispro 100 unit/mL 0 sliding scale dose SC AC PRN 04/24/24
subcutaneous pen (Humalog KwikPen blood sugar
(U-100) Insulin)
montelukast 10 mg tablet 10 mg PO WETH ASTHMA 04/24/24
(Singulair)
morphine concentrate 100 mg/5 mL 10 mg PO Q4HPRN PRN 04/24/24
(20 mg/mL) oral solution moderate-severe pain
omeprazole 40 mg capsule,delayed 40 mg PO DAILY Gastrointestinal 04/24/24
release Issue
pediatric multivitamin no.76 1 tab PO QPM Supplement 04/24/24
(Flintstones Complete chewable
tablet)
polyethylene glycol 3350 17 gram 17 g PO DAILY Constipation 04/24/24
oral powder packet (Miralax)
potassium chloride 20 mEq 20 meq PO DAILY Supplement 04/24/24
tablet,extended release
quetiapine 25 mg tablet (Seroquel) 12.5 mg PO TID Mental 04/24/24
Health/Anxiety
vit C 250 mg-vit E 90 mg-zinc 40 1 tab PO BID Supplement 04/24/24
mg-copper 1 gg-[id number]-tleecw
capsule (PreserVision AREDS-2)
Allergies
Allergies
Allergy/AdvReac Type Severity Reaction Status Date / Time
pollen extracts Allergy sneezing, Verified 04/24/24 17:10
postnasal
drip
Physical Exam
-
Exam:
Sleeping, but arousable. Conversant.
Cranial nerves II to XII are grossly intact.
Motor: 5/5 strength bilaterally lower extremities in all muscle groups.
Sensation: Intact to light touch bilaterally in lower extremities.
Reflexes 2+ bilaterally in lower extremities.
Head is normocephalic, atraumatic
Neck is supple
Breathing nonlabored
Cardiac, regular rate and rhythm.
Abdomen is soft nondistended
Extremities are warm, pulses palpable.
MRI of the lumbar spine performed on 04/26/2024 was reviewed. There is evidence of acute STIR hyperintensity within the L5 vertebral body, consistent with acute compression fracture. No obvious evidence of retropulsion is seen. Additionally,
there is an L1 compression deformity with minimal STIR hyperintensity, likely consistent with subacute compression fracture. There is approximately 75% loss of height anteriorly, with retropulsion. However, the spinal canal appears to be patent
without any obvious evidence of neural compression.
Problems
-
Problem Status Onset Code
Dehydration E86.0
Altered mental status R41.82
Assessment / Plan
-
This is an 83-year-old gentleman with a history of multiple myeloma, on immunotherapy, who presents with progressive back pain. MRI of the hip is negative for pathology. MRI of the lumbar spine does demonstrate subacute L1 compression fracture, as
well as diffuse STIR signal hyperintensity in the L5 vertebral body, consistent with compression deformity likely secondary to pathologic involvement of disease.
Multidisciplinary text conversation was held via secure text regarding management plan. A present time, recommend vertebroplasty for the L5 lesion, as this is likely main source of patient's pain.
If this area has not been treated with radiation, would consider palliative radiation to this area as well. If it has been treated with radiation, would also recommend LSO brace when patient is weightbearing for additional mechanical support/pain
relief x 8 to 10 weeks.
Will sign off, please call with questions.
[2024-04-28] MEDS: NOVOLOG FLEXPEN-LOW RESISTANCE 1 UNITS SC ×2 (13:03→17:28)
--- NOTE | 2024-04-28 15:37 | W.PN.UPDATE ---
Update Note
Progress Note Update
Discussed vertebroplasty L5 procedure with patient and his son, all questions answered.
Will need to hold eliquis for at least 48 hours prior to procedure, so midweek would be the earliest possible time. If stable for discharge, OK to bring him back to do as outpatient.
[2024-04-28 17:28] LABS: Glucose - Point of Care 179 mg/dl (70-99)
--- NOTE | 2024-04-28 17:41 | PTCARENOTE ---
pt has higher pain tolerance this shift did not require any PRN medication other then the scheduled Tylenol, able to get to the bathroom via RW assist of 1, sitting up in the chair for breakfast and lunch, family at bedside, static overlay applied
to help with sacral wound.
[2024-04-28] MEDS: SEROQUEL 12.5 MG PO (19:24)
--- NOTE | 2024-04-28 20:02 | PTCARENOTE ---
Patient is acting impulsive setting off bed alarm getting out of bed. Medsitter was placed for patient safety. Patient does not want pain medicine at this time. He verbalized an understanding he can have it.
--- NOTE | 2024-04-28 20:55 | W.PN.ONC2 ---
Today's Communication / Plan
-
Outpt f/u with Dr. Farah to continue myeloma therapy.
Reviewed recent myeloma labwork indicating response to current systemic therapy.
Revlimid now D/C'd for intolerance but continues on Darzalex.
Will arrange outpt f/u upon d/c.
Impression
Impression
Intractable paroxysms of pain, improved
Pain may be due to path fx at L5 and progressive compression fx at L1
Await IR consultation regarding possible vertebroplasty.
Lumbar spine has been irradiated in December of this year, not on paper chart
No clear evidence of multiple myeloma progression; in factor, M-spike has improved from 3.0 to 0.3 with improvement in other myeloma parameters as well
Generalized weakness and deconditioning
Hypertension
Diabetes mellitus
Paralyzed right hemidiaphragm chronic
PAF
Plan
Plan
MRI spine and hip show subacute L1 fracture with progressive height loss and increased retropulsion, path fx at L5. He has previously undergone RT to lumbar spine.
Await IR consult regarding possible vertebroplasty.
Palliative care service manages pain outpatient
Subjective/Objective
Chief Complaint
Multiple myeloma, intractable pain
Subjective
Pt states pain is significantly improved today. His son is present in room.
Vital Signs:
Vital Signs
Temp Pulse Resp BP Pulse Ox
98.1 F 76 18 122/63 98
04/28/24 19:45 04/28/24 19:45 04/28/24 19:45 04/28/24 19:45 04/28/24 19:45
Lab Results:
Laboratory Data
WBC 6.3 10^3/uL (4.8-10.8) 04/28/24 06:18
Hgb 14.3 g/dL (13.0-18.0) 04/28/24 06:18
Plt Count 231 10^3/uL (130-400) 04/28/24 06:18
eGFR > 60.00 04/28/24 06:18
Physical Exam
Awake, alert, non-toxic appearing, seated in chair
HEENT: Moist Mucous Membranes; No Jaundice
Cardiology: Normal Sinus Rhythm, S1 and S2
Pulmonary: Clear; No Wheezes
GI: Soft and Normal Bowel Sounds
Extremities: No C/C/E
Neuro: Non Focal
Review of Systems
Review of Systems
ROS negative in detail except as per HPI
[2024-04-28 21:28] LABS: Glucose - Point of Care 153 mg/dl (70-99)
[2024-04-29] VITALS (7 sets, daily range): BP systolic 100–132; BP diastolic 58–81; PULSE 120; O2SAT 95
[2024-04-29 07:45] LABS: Glucose - Point of Care 126 mg/dl (70-99)
[2024-04-29 07:58] LABS: % Basophils 2.1 % (0-2); % Eosinophils 3.2 % (0-6); % Immature Granulocytes 2.4 % (0-0.5); % Lymphocytes 7.4 % (20.5-51.1); % Monocytes 11.9 % (1.7-9.3); Absolute Basophils 0.1 10^3/uL (0-0.2); Absolute Eosinophils 0.2 10^3/uL (0-0.7); Absolute Immature Granulocytes 0.2 10^3/uL (0-0.05); Absolute Lymphocytes 0.5 10^3/uL (1.2-3.4); Absolute Monocytes 0.7 10^3/uL (0.1-0.6); Absolute Neutrophils 4.6 10^3/uL (1.4-6.5); Hematocrit 40.4 % (39.0-52.0); Hemoglobin 13.3 g/dL (13.0-18.0); Mean Corp Hgb Conc. 32.9 g/dL (33.0-37.0); Mean Corpuscular Hgb 29.6 pg (27.0-31.0); Mean Corpuscular Volume 89.8 fL (80.0-94.0); Mean Platelet Volume 9.2 fL (7.4-10.4); Nucleated Red Blood Cells % 0 % (-); Platelet Count 255 10^3/uL (130-400); Red Cell Dist. Width 18.3 % (11.5-14.5); White Blood Cell Count 6.2 10^3/uL (4.8-10.8)
[2024-04-29 08:23] LABS: ALT (SGPT) < 10 U/L (0-50); AST (SGOT) 21 U/L (17-59); Albumin 2.7 g/dl (3.5-5.0); Alkaline Phosphatase 121 U/L (38-126); Blood Urea Nitrogen 21 mg/dl (9-20); Calcium 8.5 mg/dl (8.4-10.2); Carbon Dioxide 27 mmol/L (22-30); Chloride 100 mmol/L (98-107); Estimated Creatinine Clearance 69 ml/min; Glucose 123 mg/dl (70-99); Potassium 3.9 mmol/L (3.5-5.1); Sodium 137 mmol/L (135-145); Total Bilirubin 0.5 mg/dl (0.2-1.3); Total Protein 4.7 g/dl (6.3-8.2); eGFR > 60.00
[2024-04-29] MEDS: NOVOLOG FLEXPEN-LOW RESISTANCE SC ×2 (08:52→17:46)
[2024-04-29] MEDS: PROTONIX 40 MG PO (09:00)
[2024-04-29] MEDS: LASIX 40 MG PO (09:00)
[2024-04-29] MEDS: KCL 20 MEQ PO (09:00)
[2024-04-29] MEDS: ZOVIRAX 400 MG PO ×2 (09:00→20:32)
[2024-04-29] MEDS: TYLENOL 1000 MG PO ×3 (09:00→21:22)
[2024-04-29] MEDS: JARDIANCE 10 MG PO (09:00)
[2024-04-29] MEDS: MIRALAX 17 GRAMS PO (09:01)
[2024-04-29] MEDS: LANTUS 0.07 UNITS SC (09:01)
[2024-04-29] MEDS: DESENEX/MITRAZOL/ZEASORB 1 APPLIC TOPICAL ×2 (09:09→20:30)
--- NOTE | 2024-04-29 09:37 | W.PN.HOSP.TC ---
Today's Communication/Plan
-
Hep drip bridge for IRAD procedure
Assessment / Plan
Assessment / Plan
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 He recetly had his pain medication doses increased with
introduction of fentanyl patch and was also started on Seroquel. Delirium resolved with decrease of his antipsychotics, pain improved to the point that patient was able to move to the bathroom in the hospital. MRI hip showed known plasmacytoma with
osseous lesions in iliac and pathologic Fx of L5. As per neuroSx advise -IRAD for L5 vertebroplasty, needs to be off Eliquis for the procedure - bridging with heparin started as patient with recent VTE
A/P:
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
#MM
NeuroRx consult for possible vertebroplasty vs RT, that as per onc can be later considered as outpatient
pain mgmt
PT/OT
Oncology follows: non-secretory plasmacytoma
Palliative follows: cont pain mgmt regimen
#Episodes of delirium, most likely 2/2 polypharmacy on unspecified dementia
resolved with adjustment of meds - ZOloft decreased to PRN
MRI brain: concern for volume loss 2/2 neurodegenerative disease - outpatient neurology
Psych followed
#Small disk herniation C3/C4, C4/C5 with minimal central cord compression
NeuroSx follow up as outpatient
#Recent Pulmonary embolism
#Recent DVT
cont AC, bridge for the procedure
#Diffuse OP
outpatient f/u with pcp
#DM type 2 with neuropathy
Accuchecks, insulin SS, DM diet
#R hemidiaphragm elevation
#paroxysmal afib
#Essential HTN
#GERD
#ASCVD
#Hx of urinary bladder CA
#Gout
COnt home meds
Might need ELiquis bridge with hep if spinal procedure planned. WIth improvement of the pain - unclear at this time, will await neuroSx determination before initiating bridging
DVT ppx on Hep drip
DNI, CPR ok
I have spent at least 58min reviewing chart, test results, communication with consultants and direct patient care
Anticipated Discharge: > 48 hours
Subjective/Interval History
-
Date of Service: April 29, 2024
Objective Data
-
Labs:
Laboratory Results
04/29/24
07:03
WBC 6.2
Hgb 13.3
Hct 40.4
Plt Count 255
Sodium 137
Potassium 3.9
Chloride 100
Carbon Dioxide 27
BUN 21 H
Creatinine 0.8
Glucose 123 H
Calcium 8.5
Total Bilirubin 0.5
AST 21
ALT < 10
Alkaline Phosphatase 121
Vital Signs:
Vital Signs
Temp Pulse Resp BP Pulse Ox
97.8 F 89 18 122/81 90
04/29/24 07:30 04/29/24 07:30 04/29/24 07:30 04/29/24 07:30 04/29/24 07:30
I&O
04/28/24 04/29/24 04/30/24
06:59 06:59 06:59
Intake Total 660 / 660 1260 / 1260
Balance 660 / 660 1260 / 1260
Review of Systems
-
History Source: Patient
All other systems: Reviewed and negative
Physical Exam
-
General: No Apparent Distress
HEENT: Normocephalic
Respiratory: Clear to Auscultation
Cardiac: Regular Rhythm
GI: Soft, Nontender and Nondistended
Musculoskeletal: No Clubbing
Psych: Calm and Apparent Dementia
[2024-04-29] MEDS: DULCOLAX 10 MG RECTAL (10:17)
[2024-04-29] MEDS: SEROQUEL 12.5 MG PO (10:17)
[2024-04-29] MEDS: SENOKOT-S 1 TABLET PO (10:46)
[2024-04-29 10:49] LABS: Hematocrit 48.2 % (39.0-52.0); Hemoglobin 15.7 g/dL (13.0-18.0); Mean Corp Hgb Conc. 32.6 g/dL (33.0-37.0); Mean Corpuscular Hgb 29.3 pg (27.0-31.0); Mean Corpuscular Volume 90.1 fL (80.0-94.0); Mean Platelet Volume 9.3 fL (7.4-10.4); Platelet Count 325 10^3/uL (130-400); Red Blood Cell Count 5.35 10^6/uL (4.70-6.10); Red Cell Dist. Width 19.3 % (11.5-14.5); White Blood Cell Count 8.6 10^3/uL (4.8-10.8)
[2024-04-29 10:55] LABS: APTT 32.6 Sec (23.4-35.0)
[2024-04-29] MEDS: HEPARIN 25000 UNITS/250 ML IV (11:31)
[2024-04-29 11:43] LABS: Glucose - Point of Care 243 mg/dl (70-99)
[2024-04-29] MEDS: NOVOLOG FLEXPEN-LOW RESISTANCE 2 UNITS SC (12:10)
--- NOTE | 2024-04-29 13:03 | W.PN.UPDATE ---
Update Note
Progress Note Update
Patient is awake and cooperative. He feels he is in control and has not been agitated recently. Son who was present describes him as being very independent and as a result tends to be easily frustrated if he has to rely on others to do things he
would normally do himself.
Currently he is just on Seroquel prn which I would continue for now.
[2024-04-29 17:46] LABS: Glucose - Point of Care 93 mg/dl (70-99)
[2024-04-29] MEDS: DURAGESIC 25 MCG/HR PATCH 1 PATCH TRANSDERM (17:50)
[2024-04-29 19:06] LABS: APTT 78.3 Sec (23.4-35.0)
[2024-04-29 21:35] LABS: Glucose - Point of Care 255 mg/dl (70-99)
[2024-04-30] MEDS: SEROQUEL 12.5 MG PO (01:24)
[2024-04-30 02:12] LABS: APTT 103.9 Sec (23.4-35.0)
[2024-04-30 03:02] VITALS: BP 118/62
[2024-04-30] MEDS: MIRALAX PO (07:28)
[2024-04-30 07:30] VITALS: BP 139/68
[2024-04-30 07:54] LABS: Glucose - Point of Care 126 mg/dl (70-99)
[2024-04-30] MEDS: NOVOLOG FLEXPEN-LOW RESISTANCE SC ×2 (08:00→12:27)
[2024-04-30 08:02] LABS: INR 1.28; PT 15.8 Sec (11.4-14.6)
[2024-04-30] MEDS: TYLENOL 1000 MG PO (08:29)
[2024-04-30] MEDS: KCL 20 MEQ PO (08:29)
[2024-04-30] MEDS: PROTONIX 40 MG PO (08:29)
[2024-04-30] MEDS: ZOVIRAX 400 MG PO (08:29)
[2024-04-30] MEDS: LASIX 40 MG PO (08:29)
[2024-04-30] MEDS: HEPARIN 25000 UNITS/250 ML IV (08:32)
[2024-04-30] MEDS: DESENEX/MITRAZOL/ZEASORB 1 APPLIC TOPICAL (08:34)
[2024-04-30] MEDS: LANTUS SC (08:55)
--- NOTE | 2024-04-30 09:06 | W.PN.HOSP.TC ---
Today's Communication/Plan
-
cont heparin drip pending IRAD - communicated that last Eliquis dose was Sun evening
Assessment / Plan
Assessment / Plan
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 He recetly had his pain medication doses increased with
introduction of fentanyl patch and was also started on Seroquel. Delirium resolved with decrease of his antipsychotics, pain improved to the point that patient was able to move to the bathroom in the hospital. MRI hip showed known plasmacytoma with
osseous lesions in iliac and pathologic Fx of L5. As per neuroSx advise -IRAD for L5 vertebroplasty, needs to be off Eliquis for the procedure - bridging with heparin started as patient with recent VTE
A/P:
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
#Multiple myeloma
NeuroRx consult: for possible vertebroplasty vs RT, that as per onc can be later considered as outpatient
pain mgmt
PT/OT
Oncology follows: non-secretory plasmacytoma
Palliative follows: cont pain mgmt regimen
IRAD for vertebroplasty, currently on hep drip bridging while holding off Eliquis
#Episodes of delirium, most likely 2/2 polypharmacy on unspecified dementia
resolved with adjustment of meds - ZOloft decreased to PRN
MRI brain: concern for volume loss 2/2 neurodegenerative disease - outpatient neurology
Psych followed
#Small disk herniation C3/C4, C4/C5 with minimal central cord compression
NeuroSx follow up as outpatient
#Recent Pulmonary embolism
#Recent DVT
cont AC, bridge for the procedure
#Diffuse OP
outpatient f/u with pcp
#DM type 2 with neuropathy
Accuchecks, insulin SS, DM diet
#R hemidiaphragm elevation
#paroxysmal afib
#Essential HTN
#GERD
#ASCVD
#Hx of urinary bladder CA
#Gout
COnt home meds
Heparin bridge
DVT ppx on Hep drip
DNI, CPR ok
I have spent at least 58min reviewing chart, test results, communication with consultants and direct patient care
Anticipated Discharge: Within 24 hours
Subjective/Interval History
-
Date of Service: April 30, 2024
Objective Data
-
Labs:
Laboratory Results
04/30/24 04/30/24
01:52 08:31
PT 15.8 H
INR 1.28
APTT 103.9 H Pending
Vital Signs:
Vital Signs
Temp Pulse Resp BP Pulse Ox
97.2 F 82 16 139/68 92
04/30/24 07:30 04/30/24 08:29 04/30/24 07:30 04/30/24 08:29 04/30/24 07:30
I&O
04/29/24 04/30/24 05/01/24
06:59 06:59 06:59
Intake Total 1260 / 1260 960 / 960
Output Total 2 / 2
Balance 1260 / 1260 958 / 958
Review of Systems
-
Unable to obtain full review of systems at this time due to: Dementia
History Source: Patient
Physical Exam
-
HEENT: Normocephalic and Atraumatic
Respiratory: Clear to Auscultation
Cardiac: Regular Rhythm
GI: Soft, Nontender and Nondistended
Neuro: Awake, Alert, Oriented and AO x 3
Psych: Calm
--- NOTE | 2024-04-30 09:10 | W.PN.ONC2 ---
Today's Communication / Plan
-
Outpt f/u with Dr. Farah to continue myeloma therapy.
Revlimid now D/C'd for intolerance but continues on Darzalex outpt
Will arrange outpt f/u upon d/c.
Impression
Impression
Intractable paroxysms of pain, improved
Pain may be due to path fx at L5 and progressive compression fx at L1
Lumbar spine has been irradiated in December of this year, not on paper chart
M-spike has improved from 3.0 to 0.3 with improvement in other myeloma parameters as well-recent myeloma labwork indicating response to current systemic therapy.
Generalized weakness and deconditioning
Hypertension
Diabetes mellitus
Paralyzed right hemidiaphragm chronic
PAF
Plan
Plan
MRI spine and hip show subacute L1 fracture with progressive height loss and increased retropulsion, path fx at L5. He has previously undergone RT to lumbar spine.
IRAD evaluation of imaging, not a straight forward case and typical vertebroplasty risk would outweigh benefit
Will resume MM therapy upon discharge, if requires SNF/Rehab then therapy will remain on hold to optimize performance status
Palliative care service manages pain outpatient
Subjective/Objective
Chief Complaint
afebrile, no hypoxia or hypotension
4gm tylenol PO prn/24 hours
continues fentanyl patch 25mcg
ambulating to bathroom with walker
Subjective
no new complaints
Vital Signs:
Vital Signs
Temp Pulse Resp BP Pulse Ox
97.2 F 82 16 139/68 92
04/30/24 07:30 04/30/24 08:29 04/30/24 07:30 04/30/24 08:29 04/30/24 07:30
Lab Results:
Laboratory Data
WBC 8.6 10^3/uL (4.8-10.8) 04/29/24 10:08
Hgb 15.7 g/dL (13.0-18.0) 04/29/24 10:08
Plt Count 325 10^3/uL (130-400) D 04/29/24 10:08
PT 15.8 Sec (11.4-14.6) H 04/30/24 01:52
INR 1.28 04/30/24 01:52
APTT 103.9 Sec (23.4-35.0) H 04/30/24 01:52
eGFR > 60.00 04/29/24 07:03
Physical Exam
Awake, alert, non-toxic appearing, seated in chair
HEENT: Moist Mucous Membranes; No Jaundice
Cardiology: Normal Sinus Rhythm, S1 and S2
Pulmonary: Clear; No Wheezes
GI: Soft and Normal Bowel Sounds
Extremities: No C/C/E
Neuro: Non Focal
Review of Systems
Review of Systems
ROS notable for subjective, otherwise negative
[2024-04-30] MEDS: JARDIANCE 10 MG PO (09:23)
--- NOTE | 2024-04-30 09:23 | CM ---
Addendum entered by Kirsten Yoon 04/30/24 15:07:
Current plan is for continued care at home with Palliative following. Pt's daughter will transport home; anticipate discharge today.
Palliative care
Original Note:
Pineda lives with his , who recently was diagnosed with dementia. Patient has 24 hour paid caregivers through [facility]. Daughter reports caregivers are having a difficult time managing patient. Patient's daughter stated that they are
pending and MRI to evaluate pain in patient's lower back, but patient was too lethargic to go to the appointment. Patient is also followed by Dr. Farah, oncologist.
Daughter reported that despite interventions and medical changes at home, patient's pain is still not under control. Chart indicates IRAD for L5 vertebroplasty is planned.
Patient is followed closely by Palliative Care. Daughter is aware that patient may need hospice and would prefer patient remain home if possible during that time.
Plan: Discharge to home with hospice vs. continued care at home with Palliative following.
[2024-04-30 10:13] LABS: APTT 135.4 Sec (23.4-35.0)
--- NOTE | 2024-04-30 10:13 | HOSPNOTE ---
Last week met with daughter and patient. I left my card and the daughter stated she will reach out if hospice is wanted. I will continue to follow.
--- NOTE | 2024-04-30 11:24 | W.PN.UPDATE ---
Update Note
Progress Note Update
Patient is at this point somewhat irritable as he is NPO and awaiting surgery and feels hungry. He is not agitated and is cognitively stable.
Discussed various strategies to handle anger/frustration.
He has his home human resources assistant with him which is also helpful.
[2024-04-30 11:46] VITALS: BP 111/64
--- NOTE | 2024-04-30 12:14 | W.DCSUMMARY ---
Discharge Summary
Discharge Data
Date of Admission: 04/24/24
Date of Discharge: 04/30/24
-
Pending Results: No
Hospital Course
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 He recetly had his pain medication doses increased with
introduction of fentanyl patch and was also started on Seroquel. Delirium resolved with decrease of his antipsychotics, pain improved to the point that patient was able to move to the bathroom in the hospital. MRI hip showed known plasmacytoma with
osseous lesions in iliac and pathologic Fx of L5. As per neuroSx advise -IRAD for L5 vertebroplasty, needs to be off Eliquis for the procedure - bridging with heparin started as patient with recent VTE, however upon further review - risk would
overweight benefit due to possibility of cement extravazation. As per Onc- continue with outpatient follow up with . Back brace to be provided to improve healing over next 4-6 weeks. Medically stable for d/c home with home PT - discussed
with narayan in details. Patient has home support.
I have spent at least 39min discharging the patient, reviewing chart, test results, communication with consultants and direct patient care
A/P:
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
#Multiple myeloma
#Episodes of delirium, most likely 2/2 polypharmacy on unspecified dementia
#Small disk herniation C3/C4, C4/C5 with minimal central cord compression
#Recent Pulmonary embolism
#Recent DVT
#Diffuse OP
#DM type 2 with neuropathy
#R hemidiaphragm elevation
#paroxysmal afib
#Essential HTN
#GERD
#ASCVD
#Hx of urinary bladder CA
#Gout
Discharge Plan
-
Patient Disposition: Home with Home Care
Discharge Diagnosis/Procedures: L5 pathologic Fx
Diet: Low Cholesterol
Activity: As tolerated
Additional Activity: wear brace on ambulation for 4-6 weeks
[address]riving Restrictions: As prior to admission
Activity Restrictions/Additional Instructions:
Wound Care Instructions
Sacral/buttocks-clean with saline or soap and water, miconazole powder prn yeasty red periwound skin followed by no sting barrier wipe, silicone border foam, change q 3 days and prn loosened dressing.
Miconazole powder to penile/scrotal/groin, affected areas bid.
Barrier ointment over miconazole powder as needed for incontinence.
Elevate heels off bed with pillow/s and/or air chair cushion
Evaluate for air mattress
Turning schedule
Pressure redistributing chair cushion (i.e. Air chair cushion).
Referrals:
Josh Farah DO [Active] - in one to two weeks
Ashok Warner DO [Active] - in one to two months (for compression Fx)
Hilda Fry MD [Family Provider] -
Nohemi Baltazar DO [Active] - in four to six weeks (for signs of dementia on MRI brain)
Prescriptions:
New
bisacodyl 5 mg Tablet,Delayed Release (Dr/Ec)
10 mg PO DAILYPRN PRN (Reason: consistent constipation) Qty: 30 0RF
Continued
Jardiance 10 mg Tablet
10 mg PO DAILY
furosemide 40 mg Tablet
40 mg PO DAILY
acetaminophen [Tylenol Extra Strength] 500 mg Tablet
1,000 mg PO TID Qty: 30 0RF
polyethylene glycol 3350 [Miralax] 17 gram Powder In Packet
17 g PO DAILY
morphine concentrate 100 mg/5 mL (20 mg/mL) solution
10 mg PO Q4HPRN PRN (Reason: moderate-severe pain)
acyclovir 400 mg Tablet
400 mg PO BID
montelukast [Singulair] 10 mg Tablet
10 mg PO
Rx Instructions:
chemo treatment
insulin lispro [Humalog KwikPen Insulin] 100 unit/mL Insulin Pen
0 sliding scale dose SC AC PRN (Reason: blood sugar)
PreserVision AREDS-2 250-90-40-1 mg Capsule
1 tab PO BID
potassium chloride 20 mEq Tablet Extended Release
20 meq PO DAILY
Flintstones Complete Tablet,Chewable
1 tab PO QPM
dexamethasone 20 mg Tablet
20 mg PO WE
Rx Instructions:
chemo treatment
dexamethasone 2 mg tablet
4 mg PO THFR
Rx Instructions:
chemo treatment
Eliquis 5 mg tablet
5 mg PO BID
diphenhydramine HCl 50 mg Capsule
50 mg PO WE
Rx Instructions:
chemo treatment
omeprazole 40 mg Capsule,Delayed Release(Dr/Ec)
40 mg PO DAILY
famotidine [Pepcid] 20 mg Tablet
40 mg PO WE
Rx Instructions:
chemo treatment
fentanyl 25 mcg/hr Patch 72 Hour
1 patch TRANSDERMAL Q72H
Darzalex 20 mg/mL Solution
20 mg IV WE
Changed
insulin glargine [Lantus Solostar U-100 Insulin] 100 unit/mL (3 mL) insulin pen
7 unit SC DAILY Qty: 0 0RF
Discontinued
quetiapine [Seroquel] 25 mg Tablet
12.5 mg PO TID
Discharge Orders:
Discharge Patient (As Directed); Ordered 04/30/24
Ordered By: Hal Whittaker
Discharge Date and Time
Print Language: MAURITANIAN
[2024-04-30 12:22] LABS: Glucose - Point of Care 136 mg/dl (70-99)
[2024-04-30] MEDS: ELIQUIS PO (12:39)
--- NOTE | 2024-04-30 12:47 | PTCARENOTE ---
MD reached out to this RN regarding procedure for pt. This RN was advised that MD had spoken with daughter of pt and was advised to stop Heparin. Heparin gtt discontinued per MD order and order in to begin Eliquis. Upon entering pt room personal
caregiver of pt stated 'pt daughter does not want pt receiving any medications until she gets here'. Pt now refusing Eliquis. notified of refusal. Call rice within reach.
[2024-04-30] MEDS: ELIQUIS 5 MG PO (14:24)
[2024-04-30] MEDS: IMODIUM 2 MG PO (15:21)
[2024-04-30 15:39] VITALS: BP 112/70
== END 2024-04-30 16:43 | disposition home health service (06) | DRG 542 ==
LOC: 2 NORTH 13:02
PROVIDERS: Internal Medicine; Physician Assistant; Registered Nurse; ADMITTING PHYSICIAN Internal Medicine; ATTENDING PHYSICIAN Internal Medicine; CONSULT PHYSICIAN Internal Medicine Hospice and Palliative Medicine; CONSULT PHYSICIAN Psychiatry & Neurology Psychiatry; EMERGENCY PHYSICIAN Emergency Medicine; FAMILY PHYSICIAN Internal Medicine; OTHER PHYSICIAN Internal Medicine Hematology & Oncology; OTHER PHYSICIAN Neurological Surgery
DX: M84.58XA Pathological fracture in neoplastic disease, other specified site, initial encounter for fracture (principal); J96.21 Acute and chronic respiratory failure with hypoxia; L89.313 Pressure ulcer of right buttock, stage 3; L89.323 Pressure ulcer of left buttock, stage 3; L89.153 Pressure ulcer of sacral region, stage 3; I50.32 Chronic diastolic (congestive) heart failure; C90.30 Solitary plasmacytoma not having achieved remission; C79.51 Secondary malignant neoplasm of bone; Z87.891 Personal history of nicotine dependence; Z11.52 Encounter for screening for COVID-19; Z51.5 Encounter for palliative care; M1A.9XX0 Chronic gout, unspecified, without tophus (tophi); I11.0 Hypertensive heart disease with heart failure; E11.40 Type 2 diabetes mellitus with diabetic neuropathy, unspecified; Z79.01 Long term (current) use of anticoagulants; K57.30 Diverticulosis of large intestine without perforation or abscess without bleeding; I48.0 Paroxysmal atrial fibrillation; K21.9 Gastro-esophageal reflux disease without esophagitis; I25.10 Atherosclerotic heart disease of native coronary artery without angina pectoris; E11.36 Type 2 diabetes mellitus with diabetic cataract; E11.649 Type 2 diabetes mellitus with hypoglycemia without coma
CPT/HCPCS: 51701; 70450; 70551; 71046; 72148; 73721; 80048; 80053; 81003; 82962; 83036; 83605; 83735; 83880; 84484; 85025; 85027; 85610; 85730; 87811; 93005; 96361; 96374; 97110; 97163; 97167; 99285